=== PATIENT | female | born 1940 | race Caucasian/White ===

== ENCOUNTER 2016-12-21 23:14 | Inpatient (IN) | payer BC, OTHER ==
--- NOTE | 2016-12-21 23:58 | PDOC ---
[id number]: Language Barrier (until rest of family arrived) - History of Present Illness Initial Comments: 12/22/16 00:22 This patient was seen and evaluated upon arrival to the ED and this note was entered at a later point in time. The patient is a 76 year old female, with a significant past medical history of HTN, hyperlipidemia, diabetes, Afib (on Coumadin) and s/p CVA (right parietal stroke; July 2016), who presents to the emergency department via EMS with right sided weakness and slurred speech since approximately 10PM this evening. The patients arrived with the patient to the ED. Both the patient and her primarily speak [place]ian. Approximately half an hour into the history and examination, the rest of the patients family arrive and provide history. They report that the patient went to bed at approximately 10PM and woke up a short time later exhibiting the slurred speech and right sided weakness. EMS was subsequently initiated. Her family state that this is not the patients baseline. At this point, a code segura was called and stroke protocol was initiated. The patients last known time well: 12/21/2016 at 22:00. Allergies: None reported. Past Surgical History: None reported. Social History: Non smoker. Denies alcohol or drug use. PCP: Dr. Dobson <Leilani Aranda - Last Filed: 12/22/16 01:46> - General History Source: Patient, Family, Old Records Exam Limitations: No Limitations <Navin Bauer - Last Filed: 12/28/16 16:04> - General Chief Complaint: Psychiatric Stated Complaint: ANXIETY Time Seen by Provider: 12/21/16 23:24 Past History <Leilani Aranda - Last Filed: 12/22/16 01:46> - Past Medical History Cardiac Disorders: Yes (A FIB) Diabetes: Yes HTN: Yes Hypercholesterolemia: Yes - Psycho/Social/Smoking Cessation Hx Anxiety: No Suicidal Ideation: No Smoking Status: No Smoking History: Never smoked Have you smoked in the past 12 months: No Number of Cigarettes Smoked Daily: 0 Cigars Per Day: 0 Hx Alcohol Use: No Drug/Substance Use Hx: No Substance Use Type: None Hx Substance Use Treatment: No <Navin Bauer - Last Filed: 12/28/16 16:04> - Past Medical History Allergies/Adverse Reactions: Allergies Allergy/AdvReac Type Severity Reaction Status Date / Time No Known Allergies Allergy Verified 12/21/16 23:30 Home Medications: Ambulatory Orders Cyanocobalamin (Vitamin B-12) [B-12] 1,000 mcg PO DAILY 07/18/16 Gabapentin 100 mg PO BID 07/18/16 Losartan Potassium [Cozaar -] 50 mg PO HS #0 tablet 07/25/16 Losartan Potassium [Cozaar -] 100 mg PO DAILY #0 tablet 07/25/16 Metformin Xr [Glucophage Xr -] 500 mg PO DAILY@0700 #0 tab.sr.24h 07/25/16 Metoprolol Succinate [Toprol XL -] 50 mg PO BID #0 tab.sr.24h 07/25/16 Rosuvastatin [Crestor -] 10 mg PO HS #0 tablet 07/25/16 Acetaminophen [Tylenol .Regular Strength -] 650 mg PO Q4H PRN #0 tablet Dabigatran Etexilate Mesylate [Pradaxa -] 75 mg PO BID 30 Days 12/27/16 Gabapentin [Neurontin -] 100 mg PO BID capsule 12/27/16 Metoprolol Succinate [Toprol XL -] 50 mg PO HS #60 tab.sr.24h 12/27/16 Metoprolol Succinate [Toprol XL -] 75 mg PO DAILY tab.sr.24h 12/27/16 Review of Systems - Review of Systems Able to Perform ROS?: Yes Comments:: 12/22/16 00:28 GENERAL/CONSTITUTIONAL: No fever or chills. No weakness. HEAD, EYES, EARS, NOSE AND THROAT: No change in vision. No ear pain or discharge. No sore throat. CARDIOVASCULAR: No chest pain or shortness of breath. RESPIRATORY: No cough, wheezing, or hemoptysis. GASTROINTESTINAL: No nausea, vomiting, diarrhea or constipation. GENITOURINARY: No dysuria, frequency, or change in urination. MUSCULOSKELETAL: No joint or muscle swelling or pain. No neck or back pain. SKIN: No rash. NEUROLOGIC: +Right sided weakness, slurred speech. No headache, vertigo, loss of consciousness. ENDOCRINE: No increased thirst. No abnormal weight change. HEMATOLOGIC/LYMPHATIC: No anemia, easy bleeding, or history of blood clots. ALLERGIC/IMMUNOLOGIC: No hives or skin allergy. <TiogaLeilani morse - Last Filed: 12/22/16 01:46> *Physical Exam - Vital Signs Last Vital Signs Temp Pulse Resp BP Pulse Ox 97.4 F L 71 28 H 199/87 96 12/21/16 23:28 12/21/16 23:28 12/21/16 23:28 12/21/16 23:28 12/21/16 23:28 - Physical Exam Comments: 12/22/16 01:45 GENERAL: Awake, alert, and fully oriented, in no acute distress. HEAD: No signs of trauma. EYES: PERRLA, EOMI, sclera anicteric, conjunctiva clear. ENT: Auricles normal inspection, hearing grossly normal, nares patent, oropharynx clear without exudates. Moist mucosa. NECK: Normal ROM, supple, no lymphadenopathy, JVD, or masses. LUNGS: Breath sounds equal, clear to auscultation bilaterally. No wheezes, and no crackles. HEART: Regular rate and rhythm, normal S1 and S2, no murmurs, rubs or gallops. ABDOMEN: Soft, nontender, normoactive bowel sounds. No guarding, no rebound. No masses. EXTREMITIES: Normal range of motion, no edema. No clubbing or cyanosis. No cords , erythema, or tenderness. SKIN: Warm, dry, normal turgor, no rashes or lesions noted. <Leilani Aranad - Last Filed: 12/22/16 01:46> - Vital Signs Last Vital Signs Temp Pulse Resp BP Pulse Ox 97.4 F L 71 28 H 199/87 96 12/21/16 23:28 12/21/16 23:28 12/21/16 23:28 12/21/16 23:28 12/21/16 23:28 - Physical Exam Comments: 12/22/16 01:50 NEURO: R facial droop. +dysarthria. RUE and RLE drift. Sensation intact throughout. Mild decreased strength upper and lower extremities. AAOx3 with no receptive or expressive aphasia. <Navin Bauer - Last Filed: 12/28/16 16:04> NIH Stroke Scale - Last Known Well Date/Time & Onset Date Last Known Well: 12/21/16 Time Last Known Well: 22:00 - Initial Evaluation Level of consciousness: Alert Ask patient the month and their age: Answers both correctly Ask patient to open & close eyes; make fist and let go: Obeys both correctly Best gaze (horizontal eye movement): Normal Visual field testing: No visual field loss Facial paresis (Show teeth/raise eyebrows/close eyes tight): Minor paralysis ( flattened nasolabial fold, asymmetry on smiling) Motor Function: Left Arm: Normal Motor Function: Right Arm: Drift Motor Function: Left Leg: Normal (extends leg 30 degrees for 5 seconds without drift) Motor Function: Right Leg: Drift Limb Ataxia: No ataxia Sensory(Use pinprick test arms,legs,trunk,face/side to side): Normal Best language (Describe picture, name items, read sentences): No Aphasia Dysarthria (read several words): Mild to moderate slurring of words Extinction and Inattention: No abnormality - Total Score NIH Stroke Scale Score: 4 <Navin Bauer - Last Filed: 12/28/16 16:04> tPA Exclusion Checklist 0-3hr - Time Elapsed Date last known well: 12/21/16 Time last known well: 22:00 Elaspsed time: 6 Day(s) and 18 Hour(s) and 2 Minutes - Thrombolytic Therapy Candidate Is the patient eligible for Thrombolytic Therapy?: No - Exclusion Criteria 0-3hr SBP greater than 185 or DBP greater than 110mmHg despite tx: No Recent IC/spinal surgery,head trauma or stroke w/in last 3mo: No Hx of previous IC hemorrhage, IC neoplasm, AVM or aneurysm: No Active internal bleeding: No Blding diathesis(low plt ct, inc PTT,INR>1.7 or use of NOAC): No Symptoms suggest subarachnoid hemorrhage: No CT demonstrates multilobar infarct(>1/3 cerebral hemiphere): No Arterial puncture at noncompressible site in previous 7 days: No Blood glucose concentration less than 50mg/dL (2.7mmol/L): No - Relative Exclusion Criteria 0-3h Life expectancy <1yr/severe co-morbid illness/FLIGHT OPERATIONS INSPECTOR on admit: No : No Patient/family refused: No Rapid improvement: No Stroke severity too mild: Yes Recent acute MS (w/in previous 3 months): No Seizure at onset with postictal residual neuro impairments: No Major surgery or serious trauma w/in previous 14 days: No Recent GI or hemorrhage (w/in previous 21 days): No - Ineligibility reason(s) Reasons No tPA given: See reason(s) noted above <Navin Bauer - Last Filed: 12/28/16 16:04> Heart Score/ECG Review #1 ECG reviewed & interpreted by me at: 00:25 12/22/16 01:55 NSR 60, T wave flat III, no std/julianne, normal axis, normal intervals, QTC 398 msec <Navin Bauer - Last Filed: 12/28/16 16:04> Critical Care Time/MDM Note Total Critical Care Time: 45 Critical Care Statement: The care of this patient involved high complexity decision making to prevent further life threatening deterioration of the patient 's condition and/or to evalute & treat vital organ system(s) failure or risk of failure. - Medical Decision Making Note: 12/22/16 00:27 EXAM: CT BRAIN W/O CONTRAST Reviewed By: Dr. Mickey Barnett IMPRESSION: No hemorrhage or gross acute infarct. Called [facility] at at 00:15. Connected and case discussed with Dr. Morataya at 00:15. Called patient's PCP, Dr. Dobson, at at 01:03. Connected and case discussed with Dr. Dobson at 01:03. Documentation prepared by Leilani Aranda, acting as medical historian for Navin Bauer MD. <Leilani Aranda - Last Filed: 12/22/16 01:46> - Medical Decision Making Note: 12/21/16 23:56 A portion of this note was documented by scribe services under my direction. I have reviewed the details of the note, within reason, and agree with the documentation with the following case summary and management plan written by me. Patient treated in the ED. Nursing notes are reviewed and incorporated into the medical decision-making. Vital signs reviewed. Peripheral IV access obtained by the nurse, laboratory studies are drawn and sent, reviewed and interpreted by myself. Vital Signs Temp Pulse Resp BP Pulse Ox 97.4 F L 71 28 H 199/87 96 12/21/16 23:28 12/21/16 23:28 12/21/16 23:28 12/21/16 23:28 12/21/16 23:28 76-year-old female with history of hypertension, diabetes, prior right parietal stroke with essentially resolution of neurological deficits, atrial fibrillation on Coumadin presents with slurring of speech. The patient was initially evaluated but not until approximately 30 minutes into the history taking that the rest of the family arrived. Family notes that she is slurring her speech and this is different than her usual state of health. Family is concerned for stroke. Given the circumstances, stroke was activated. Patient was noted to have right facial droop, dysarthria, right upper and lower extremity drift and weakness. Patient was brought immediately to head CT. Labs are ordered immediately for stat INR. We'll consult neurology. Patient is within window for TPA. 12/22/16 01:[address] demonstrates no hemorrhage or acute infarct. CBC, BMP 12/22/16 00:11 12/22/16 00:11 CMP Sodium 139 mmol/L (136-145) 12/22/16 00:11 Potassium 4.1 mmol/L (3.5-5.1) 12/22/16 00:11 Chloride 103 mmol/L (98-107) 12/22/16 00:11 Carbon Dioxide 26 mmol/L (21-32) 12/22/16 00:11 Anion Gap 10 (8-16) 12/22/16 00:11 BUN 32 mg/dL (7-18) H D 12/22/16 00:11 Creatinine 1.1 mg/dL (0.55-1.02) H D 12/22/16 00:11 Creat Clearance w eGFR 48.04 (>60) 12/22/16 00:11 Random Glucose 132 mg/dL (74-106) H D 12/22/16 00:11 Calcium 8.6 mg/dL (8.5-10.1) 12/22/16 00:11 Total Bilirubin 0.2 mg/dL (0.2-1.0) D 12/22/16 00:11 AST 15 U/L (15-37) D 12/22/16 00:11 ALT 16 U/L (12-78) 12/22/16 00:11 Alkaline Phosphatase 94 U/L (45-117) 12/22/16 00:11 Creatine Kinase 44 IU/L (26-192) 12/22/16 00:11 Troponin I < 0.02 ng/ml (0.00-0.05) 12/22/16 00:11 Total Protein 7.3 g/dl (6.4-8.2) 12/22/16 00:11 Albumin 3.4 g/dl (3.4-5.0) 12/22/16 00:11 Triglycerides 181 mg/dL (35-160) H D 12/22/16 00:11 Cholesterol 197 mg/dL (50-200) 12/22/16 00:11 Total LDL Cholesterol 129 mg/dL (5-100) H 12/22/16 00:11 HDL Cholesterol 56 mg/dL (40-60) D 12/22/16 00:11 Pt's INR is 1.23. I had discussed the case at length with Dr. Morataya (neurology ). The patient has a mild NIHSS with 4 and prior history of improvement with her prior stroke. She was determined to be at higher risk for bleeding secondary to TPA. With discussion with Dr. Morataya, decision was made that the risks outweighed the benefits. Patient already took 162 mg asa prior to arrival. Will complete the 162 mg aspirin. I had asked the patient and family regarding patient's use of coumadin. It appears that the patient may be intermittently adherent to her coumadin. She has missed prior doses to the past. Case discussed with Dr. Mile Weber. He accepts the patient to his service. Requests initiation of IV heparin to bridge patient back to coumadin. Case discussed with ICU CREDIT ASSOCIATE Angel. With shared decision making, the patient is deemed now stable for the stroke unit. <Navin Bauer - Last Filed: 12/28/16 16:04> Discharge Disposition <Leilani Aranda - Last Filed: 12/22/16 01:46> - Discharge Dispostion Last Admission D/C Date: 07/25/16 Admit: Yes <Navin Baure - Last Filed: 12/28/16 16:04> - Diagnosis CVA (cerebral vascular accident) Qualifiers: CVA mechanism: unspecified Qualified Code(s): I63.9 - Cerebral infarction, unspecified - Discharge Dispostion Disposition: VNS/HOME HEALTH CARE Condition at time of disposition: Stable - Prescriptions - Referrals
[2016-12-22 00:30] LABS: BASOPHIL 1.1 % (0-2.0); EOSINOPHIL 1.6 % (0-4.5); MCH 28.4 pg (25.7-33.7); MCHC 32.7 g/dl (32.0-36.0); MEAN CELL VOLUME 86.6 fl (80-96); MEAN PLT VOLUME 9.1 fl (7.5-11.1); NEUTROPHILS 51.2 % (42.8-82.8); PLATELET COUNT 191 K/MM3 (134-434); RDW 16.3 % (11.6-15.6); WHITE BLOOD COUNT 6.8 K/mm3 (4.0-10.0)
[2016-12-22 00:44] LABS: INR 1.23 (0.82-1.09); PROTHROMBIN TIME (PATIENT) 13.6 SEC (9.98-11.88)
[2016-12-22 00:53] LABS: ALBUMIN 3.4 g/dl (3.4-5.0); ANION GAP 10 (8-16); BILIRUBIN,TOTAL 0.2 mg/dL (0.2-1.0); CALCIUM 8.6 mg/dL (8.5-10.1); CHOLESTEROL 197 mg/dL (50-200); CO2 26 mmol/L (21-32); CREATININE 1.1 mg/dL (0.55-1.02); GLUCOSE,RANDOM 132 mg/dL (74-106); SGOT/AST 15 U/L (15-37); SGPT/ALT 16 U/L (12-78); TOT PROT 7.3 g/dl (6.4-8.2)
[2016-12-22 00:56] LABS: ALK PHOS 94 U/L (45-117); TROPONIN I < 0.02 ng/ml (0.00-0.05)
[2016-12-22] MEDS ORDERED: ASPIRIN 81 MG CHEWABLE TABLETS PO ONE (01:07)
[2016-12-22 01:10] LABS: LDL CHOLESTEROL (ONLY SJRH) 129 mg/dL (5-100)
[2016-12-22] MEDS ORDERED: HEPARIN INFUSION - 500 ML IVPB ONE (02:11)
[2016-12-22] MEDS ORDERED: ASPIRIN 81 MG CHEWABLE TABLETS ONE (02:11)
[2016-12-22] MEDS: HEPARIN - 25,000 UNIT in SODIUM CHLORIDE 495 ML IV SCH (02:27)
[2016-12-22 10:03] LABS: TROPONIN I < 0.02 ng/ml (0.00-0.05)
[2016-12-22 11:07] LABS: URINE APPEARANCE CLEAR; URINE BILIRUBIN NEGATIVE (NEGATIVE); URINE BLOOD NEGATIVE (NEGATIVE); URINE COLOR STRAW; URINE GLUCOSE (UA) NEGATIVE (NEGATIVE); URINE KETONE NEGATIVE (NEGATIVE); URINE LEUK ESTERASE NEGATIVE (NEGATIVE); URINE NITRITE NEGATIVE (NEGATIVE); URINE PROTEIN NEGATIVE (NEGATIVE); URINE UROBILINOGEN NEGATIVE E.U./dl (0.2-1.0)
--- NOTE | 2016-12-22 12:56 | CONSULT ---
Consult - text type - Consultation Consultation Note: Neurology The patient is a 76 year old female, with a significant past medical history of HTN, hyperlipidemia, diabetes, Afib (on Coumadin) and s/p CVA (right parietal stroke; July 2016), who presented to the emergency department overnight via EMS with right sided weakness and slurred speech since approximately 10PM yesterday evening. The patients arrived with the patient to the ED. Reportedly, the patient went to bed at approximately 10PM and woke up a short time later exhibiting the slurred speech and right sided weakness. EMS was subsequently initiated. I was contacted by Dr. Bauer and patient with slight facial droop, mumbled speech, minimal weakness on drift testing. She is on Coumadin and seemed to have missed doses (INR 1.23) but reports taking the dose yesterday of 5mg. Weight risks and benefits and considering patient previously had full recovery from CVA with minimal NIHSS on presentation on this visit, decision was to not TPA. Overnight, much improved. Family states speech is singificantly better. Minimal facial droop. No drift on UE, slight downward drift of LE. Allowed permissive HTN and had given extra 162mg of ASA overnight. Past History - Past Medical History Cardiac Disorders: Yes (A FIB) Diabetes: Yes HTN: Yes Hypercholesterolemia: Yes - Psycho/Social/Smoking Cessation Hx Anxiety: No Suicidal Ideation: No Smoking Status: No Smoking History: Never smoked Have you smoked in the past 12 months: No Number of Cigarettes Smoked Daily: 0 Cigars Per Day: 0 Hx Alcohol Use: No Drug/Substance Use Hx: No Substance Use Type: None Hx Substance Use Treatment: No - Past Medical History Allergies/Adverse Reactions: Allergies Allergy/AdvReac Type Severity Reaction Status Date / Time No Known Allergies Allergy Verified 12/21/16 23:30 Home Medications: Ambulatory Orders Cyanocobalamin (Vitamin B-12) [B-12] 1,000 mcg PO DAILY 07/18/16 Gabapentin 100 mg PO BID 07/18/16 Aspirin Coated [Ecotrin -] 81 mg PO DAILY #0 tablet.ec 07/25/16 Losartan Potassium [Cozaar -] 50 mg PO HS #0 tablet 07/25/16 Losartan Potassium [Cozaar -] 100 mg PO DAILY #0 tablet 07/25/16 Metformin Xr [Glucophage Xr -] 500 mg PO DAILY@0700 #0 tab.sr.24h 07/25/16 Metoprolol Succinate [Toprol XL -] 50 mg PO BID #0 tab.sr.24h 07/25/16 Rosuvastatin [Crestor -] 10 mg PO HS #0 tablet 07/25/16 Warfarin Na [Coumadin -] 5 mg PO DAILY@1800 #0 tablet 07/25/16 Review of Systems GENERAL/CONSTITUTIONAL: No fever or chills. No weakness. HEAD, EYES, EARS, NOSE AND THROAT: No change in vision. No ear pain or discharge. No sore throat. CARDIOVASCULAR: No chest pain or shortness of breath. RESPIRATORY: No cough, wheezing, or hemoptysis. GASTROINTESTINAL: No nausea, vomiting, diarrhea or constipation. GENITOURINARY: No dysuria, frequency, or change in urination. MUSCULOSKELETAL: No joint or muscle swelling or pain. No neck or back pain. SKIN: No rash. NEUROLOGIC: +Right sided weakness, slurred speech. No headache, vertigo, loss of consciousness. ENDOCRINE: No increased thirst. No abnormal weight change. HEMATOLOGIC/LYMPHATIC: No anemia, easy bleeding, or history of blood clots. ALLERGIC/IMMUNOLOGIC: No hives or skin allergy. *Physical Exam Vital Signs Temperature 97.4 F L 12/21/16 23:28 Pulse Rate 59 L 12/22/16 01:39 Respiratory Rate 16 12/22/16 01:39 Blood Pressure 137/100 12/22/16 02:27 O2 Sat by Pulse Oximetry (%) 99 12/22/16 01:39 GENERAL: Awake, alert, and fully oriented, in no acute distress. HEAD: No signs of trauma. EYES: PERRLA, EOMI, sclera anicteric, conjunctiva clear. ENT: Auricles normal inspection, hearing grossly normal, nares patent, oropharynx clear without exudates. Moist mucosa. NECK: Normal ROM, supple, no lymphadenopathy, JVD, or masses. LUNGS: Breath sounds equal, clear to auscultation bilaterally. No wheezes, and no crackles. HEART: Regular rate and rhythm, normal S1 and S2, no murmurs, rubs or gallops. ABDOMEN: Soft, nontender, normoactive bowel sounds. No guarding, no rebound. No masses. EXTREMITIES: Normal range of motion, no edema. No clubbing or cyanosis. No cords , erythema, or tenderness. SKIN: Warm, dry, normal turgor, no rashes or lesions noted. NEURO: slight R facial droop. otherwise CN intact 5/5 in upper, no drift, slight drift of Left Lower ext but does not hit bed Sensation intact throughout. AAOx3 with no receptive or expressive aphasia. CBCD WBC 6.8 K/mm3 (4.0-10.0) D 12/22/16 00:11 RBC 4.10 M/mm3 (3.60-5.2) 12/22/16 00:11 Hgb 11.6 GM/dL (10.7-15.3) 12/22/16 00:11 Hct 35.5 % (32.4-45.2) 12/22/16 00:11 MCV 86.6 fl (80-96) 12/22/16 00:11 MCHC 32.7 g/dl (32.0-36.0) 12/22/16 00:11 RDW 16.3 % (11.6-15.6) H 12/22/16 00:11 Plt Count 191 K/MM3 (134-434) 12/22/16 00:11 MPV 9.1 fl (7.5-11.1) 12/22/16 00:11 CMP Sodium 139 mmol/L (136-145) 12/22/16 00:11 Potassium 4.1 mmol/L (3.5-5.1) 12/22/16 00:11 Chloride 103 mmol/L (98-107) 12/22/16 00:11 Carbon Dioxide 26 mmol/L (21-32) 12/22/16 00:11 Anion Gap 10 (8-16) 12/22/16 00:11 BUN 32 mg/dL (7-18) H D 12/22/16 00:11 Creatinine 1.1 mg/dL (0.55-1.02) H D 12/22/16 00:11 Creat Clearance w eGFR 48.04 (>60) 12/22/16 00:11 Calcium 8.6 mg/dL (8.5-10.1) 12/22/16 00:11 Total Bilirubin 0.2 mg/dL (0.2-1.0) D 12/22/16 00:11 AST 15 U/L (15-37) D 12/22/16 00:11 ALT 16 U/L (12-78) 12/22/16 00:11 Alkaline Phosphatase 94 U/L (45-117) 12/22/16 00:11 Total Protein 7.3 g/dl (6.4-8.2) 12/22/16 00:11 Albumin 3.4 g/dl (3.4-5.0) 12/22/16 00:11 CT head without acute changes Plan: 76 year old female, with a significant past medical history of HTN, hyperlipidemia, diabetes, Afib (on Coumadin) and s/p CVA (right parietal stroke ; July 2016), who presented to the emergency department overnight via EMS with right sided weakness and slurred speech since approximately 10PM yesterday evening. Risks and benefits and considering patient previously had full recovery from CVA with minimal NIHSS on presentation on this visit, decision was to not TPA. Overnight, much improved. Family states speech is singificantly better. Minimal facial droop. No drift on UE, slight downward drift of LE. Allowed permissive HTN and had given extra 162mg of ASA overnight. Spoke to family in detail at bedside Can allow permissive HTN today up to 180/100, tomorrow up 160/90, outpatient < 140/90 Goal INR 2-3, dose coumadin MRI brain CD, Echo Lipid check, statin Pt/OT as tolerated DVT PPX (patient on AC) On metformin for DM, tight glucose control Telemetry monitoring Cardiology consult
[2016-12-22 13:10] VITALS: BMI 27.3
--- NOTE | 2016-12-22 13:34 | EKG ---
Test Reason : Blood Pressure : / mmHG Vent. Rate : 060 BPM Atrial Rate : 060 BPM P-R Int : 156 ms QRS Dur : 074 ms QT Int : 398 ms P-R-T Axes : 038 027 037 degrees QTc Int : 398 ms NORMAL SINUS RHYTHM NORMAL ECG WHEN COMPARED WITH ECG OF 22-JUL-2016 04:31, SINUS RHYTHM HAS REPLACED ATRIAL FIBRILLATION VENT. RATE HAS DECREASED BY 62 BPM Confirmed by DEYANIRA CURTIS MD ([id number]) on 12/22/2016 1:33:54 PM Referred By: Confirmed By:DEYANIRA CURTIS MD
--- NOTE | 2016-12-22 14:03 | HP ---
Admitting History and Physical - Primary Care Physician PCP: Yordy Dobson - Admission Chief Complaint: Slurred speech and weakness. of RLE History of Present Illness: Around ten PM she was about to go to bed when suddenly she could not talk and felt weakness of the RLE and called 911 and she was brought to ED and found to have slurred speech and weakness of the extremity.Possibility of TIA vs CVA and question of treatment with TPA was considered but did not meet the criteria. As her INR was subtherapeutic and as there was no evidence of any hemorrhagic evidence obn CT, she was started on Heparin. Since coming to ED she claims the weakness in the leg has resolved and her speech has improved. She is being admitted for further management. 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 Cardiovascular: Yes: AFIB, HTN, Hyperlipdemia Pulmonary: No: Asthma, Bronchitis, Cancer, COPD, O2 Dependent, Pneumonia, Previously Intubated, Pulmonary Embolus, Pulmonary Fibrosis, Sleep Apnea, Other Gastrointestinal: No: Ascites, Cancer, Constipation, Crohn's Disease, Diverticulitis, Diverticulosis, Esophageal Varices, Gastritis, GERD, GI Bleed, Hemorrhoids, Hiatal Hernia, Inflamatory Bowel Disease, Irritable Bowel Disease, Pancreatitis, Peptic Ulcer Disease, Ulcerative Colitis, Other ...: No Psych: Yes: Anxiety Musculoskeletal: Yes: Chronic low back pain Endocrine: Yes: Diabetes Mellitus - Smoking History Smoking history: Never smoked Have you smoked in the past 12 months: No Aproximately how many cigarettes per day: 0 - Alcohol/Substance Use Hx Alcohol Use: No Home Medications - Allergies Allergies/Adverse Reactions: Allergies Allergy/AdvReac Type Severity Reaction Status Date / Time No Known Allergies Allergy Verified 12/21/16 23:30 - Home Medications Home Medications: Ambulatory Orders Cyanocobalamin (Vitamin B-12) [B-12] 1,000 mcg PO DAILY 07/18/16 Gabapentin 100 mg PO BID 07/18/16 Aspirin Coated [Ecotrin -] 81 mg PO DAILY #0 tablet.ec 07/25/16 Losartan Potassium [Cozaar -] 50 mg PO HS #0 tablet 07/25/16 Losartan Potassium [Cozaar -] 100 mg PO DAILY #0 tablet 07/25/16 Metformin Xr [Glucophage Xr -] 500 mg PO DAILY@0700 #0 tab.sr.24h 07/25/16 Metoprolol Succinate [Toprol XL -] 50 mg PO BID #0 tab.sr.24h 07/25/16 Rosuvastatin [Crestor -] 10 mg PO HS #0 tablet 07/25/16 Warfarin Na [Coumadin -] 5 mg PO DAILY@1800 #0 tablet 07/25/16 Review of Systems - Review of Systems Constitutional: reports: No Symptoms Eyes: reports: No Symptoms HENT: reports: No Symptoms Neck: reports: No Symptoms Cardiovascular: denies: No Symptoms, Chest Pain, Edema, Palpitations, Shortness of Breath, Other Respiratory: denies: Cough, Exercise Intolerance, Hemoptysis, Orthopnea, PND, Snoring, SOB, SOB on Exertion, Wheezing, Other Gastrointestinal: reports: No Symptoms Genitourinary: reports: No Symptoms Breasts: reports: No Symptoms Reported Musculoskeletal: reports: Back Pain Integumentary: reports: No Symptoms Neurological: reports: Change in Speech, Headache Endocrine: reports: No Symptoms Hematology/Lymphatic: reports: No Symptoms Psychiatric: reports: Anxiety Physical Examination Vital Signs: Vital Signs Temperature 98.8 F 12/22/16 12:54 Pulse Rate 56 L 12/22/16 12:54 Respiratory Rate 18 12/22/16 12:54 Blood Pressure 161/56 12/22/16 12:54 O2 Sat by Pulse Oximetry (%) 100 12/22/16 12:54 Constitutional: Yes: Well Nourished, Calm Eyes: Yes: Conjunctiva Clear, EOM Intact HENT: Yes: WNL Neck: Yes: Supple Cardiovascular: Yes: Regular Rate and Rhythm, S1, S2 Respiratory: Yes: CTA Bilaterally Gastrointestinal: Yes: Normal Bowel Sounds, Soft Renal/: Yes: WNL Breast(s): Yes: WNL Musculoskeletal: Yes: Back Pain Extremities: Yes: WNL Edema: No Peripheral Pulses WNL: Yes Integumentary: Yes: WNL Neurological: Yes: Alert, Oriented, Cran Nerves II-XII Intact, Facial Droop, Other (slight deviation of the mouth to left) ...Motor Strength: WNL Psychiatric: Yes: WNL Imaging - Results Chest X-ray: Report Reviewed, Image Reviewed Cat Scan: Report Reviewed, Image Reviewed EKG: Report Reviewed, Image Reviewed Problem List - Problems (1) Anticoagulation management encounter Assessment/Plan: Will continue IV Heparin the switch to Pradaxa Code(s): Z51.81 - ENCOUNTER FOR THERAPEUTIC DRUG LEVEL MONITORING Z79.01 - GROUP HOME (CURRENT) USE OF 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 (2) Atrial fibrillation Assessment/Plan: VR has been within normal range Code(s): I48.91 - UNSPECIFIED ATRIAL FIBRILLATION (3) Diabetes Assessment/Plan: BGM are being followed Code(s): E11.9 - TYPE 2 DIABETES MELLITUS WITHOUT COMPLICATIONS (4) Hyperlipidemia Code(s): E78.5 - HYPERLIPIDEMIA, UNSPECIFIED Assessment/Plan She is aler and oriented with a very minimal neuro deficit of facial droop.Will continue IV Heparin if there is no evidence of any bleeding and then switch to Pradaxa.
[2016-12-22] MEDS ORDERED: METOPROLOL SUCCINATE 50 MG TAB.SR.24H (FP) ONE (14:17)
[2016-12-22] MEDS: METOPROLOL SUCCINATE 50 MG TAB.SR.24H (FP) PO SCH (14:21)
[2016-12-22] MEDS ORDERED: diazePAM 5 MG TABLET ONE (16:58)
[2016-12-22] MEDS: DEXTROSE 5%-1/3 NS - 500 ML IV SCH (18:38)
[2016-12-23] MEDS: HEPARIN - 25,000 UNIT in SODIUM CHLORIDE 495 ML IV SCH ×2 (05:13→09:29)
[2016-12-23] MEDS: DEXTROSE 5%-1/3 NS - 500 ML IV SCH ×2 (08:00→11:57)
[2016-12-23 08:32] LABS: BASOPHIL 0.8 % (0-2.0); EOSINOPHIL 2.1 % (0-4.5); MCH 28.3 pg (25.7-33.7); MCHC 32.4 g/dl (32.0-36.0); MEAN CELL VOLUME 87.4 fl (80-96); MEAN PLT VOLUME 8.6 fl (7.5-11.1); NEUTROPHILS 47.8 % (42.8-82.8); PLATELET COUNT 169 K/MM3 (134-434); RDW 15.8 % (11.6-15.6); WHITE BLOOD COUNT 5.3 K/mm3 (4.0-10.0)
[2016-12-23] MEDS: METOPROLOL SUCCINATE 50 MG TAB.SR.24H (FP) PO SCH (09:29)
[2016-12-23 09:34] LABS: ALBUMIN 3.1 g/dl (3.4-5.0); ANION GAP 7 (8-16); CALCIUM 8.7 mg/dL (8.5-10.1); CO2 30 mmol/L (21-32); GLUCOSE,RANDOM 111 mg/dL (74-106)
[2016-12-23 09:36] LABS: CREATININE 0.8 mg/dL (0.55-1.02); SGOT/AST 15 U/L (15-37); SGPT/ALT 18 U/L (12-78); TOT PROT 6.8 g/dl (6.4-8.2)
[2016-12-23 09:37] LABS: ALK PHOS 85 U/L (45-117); BILIRUBIN,TOTAL 0.5 mg/dL (0.2-1.0)
--- NOTE | 2016-12-23 10:19 | CON.CARD ---
Consult Consult Specialty:: Cardiology for Dr. Araiza Referred by:: Dr. Dobson Reason for Consultation:: CVA, h/o AFib, subtherapeutic INR - History of Present Illness Chief Complaint: facial droop, slurred speech History of Present Illness: 76 year old woman with a history of HTN, HLD, DMII, non-obs CAD on cardiac cath 2012, AFib on coumadin, previous admission 07/2016 with a CVA in the setting of a subtherapeutic INR now admitted with right sided weakness, slurred speech, and facial droop and noted to have new acute CVA's, INR again subtherapeutic. Pt. seen and examined today in nad. She states that her weakness is improving. she notes that her slurred speech persists. she denies any chest pain, sob, palpitations, lightheadedness, dizziness, syncope, or near syncope. No pnd, orthopnea, or LE edema. 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 Cardio/Vascular: Yes: AFIB, CAD, HTN, Hyperlipdemia ...: No Psych: Yes: Anxiety Musculoskeletal: Yes: Chronic low back pain Endocrine: Yes: Diabetes Mellitus - Alcohol/Substance Use Hx Alcohol Use: No - Smoking History Smoking history: Never smoked Have you smoked in the past 12 months: No Aproximately how many cigarettes per day: 0 - Social History ADL: Independent History of Recent Travel: No Home Medications - Allergies Allergies/Adverse Reactions: Allergies Allergy/AdvReac Type Severity Reaction Status Date / Time No Known Allergies Allergy Verified 12/21/16 23:30 - Home Medications Home Medications: Ambulatory Orders Cyanocobalamin (Vitamin B-12) [B-12] 1,000 mcg PO DAILY 07/18/16 Gabapentin 100 mg PO BID 07/18/16 Aspirin Coated [Ecotrin -] 81 mg PO DAILY #0 tablet.ec 07/25/16 Losartan Potassium [Cozaar -] 50 mg PO HS #0 tablet 07/25/16 Losartan Potassium [Cozaar -] 100 mg PO DAILY #0 tablet 07/25/16 Metformin Xr [Glucophage Xr -] 500 mg PO DAILY@0700 #0 tab.sr.24h 07/25/16 Metoprolol Succinate [Toprol XL -] 50 mg PO BID #0 tab.sr.24h 07/25/16 Rosuvastatin [Crestor -] 10 mg PO HS #0 tablet 07/25/16 Warfarin Na [Coumadin -] 5 mg PO DAILY@1800 #0 tablet 07/25/16 Family Disease History - Family Disease History Family History: Denies Review of Systems - Review of Systems Constitutional: reports: Weakness. denies: No Symptoms, Chills, Diaphoresis, Fever, Lethargy, Loss of Appetite, Malaise, Night Sweats, Unintentional Wgt. Loss, Other Eyes: denies: No Symptoms, Blind Spots, Blurred Vision, Double Vision, Eye Pain , Floaters, Photophobia, Recent Change in Vision, Other HENT: denies: No Symptoms, Difficult Swallowing, Ear Discharge, Ear Pain, Epistaxis, Gingival Bleeding, Hearing Loss, Mouth Swelling, Nasal Congestion, Ocular Prosthesis, Throat Pain, Toothache, Ringing in Ears, Other Neck: denies: No Symptoms, Decreased ROM, Lumps, Pain on Movement, Stiffness, Swollen Glands, Tenderness, Other Cardiovascular: denies: No Symptoms, Chest Pain, Edema, Palpitations, Shortness of Breath, Other Respiratory: denies: No Symptoms, Cough, Exercise Intolerance, Hemoptysis, Orthopnea, PND, Snoring, SOB, SOB on Exertion, Wheezing, Other Gastrointestinal: denies: No Symptoms, Abdominal Pain, Bloating, Constipation, Diarrhea, Dysphagia, Indigestion, Melena, Nausea, Rectal Bleeding, Vomiting, Vomiting Blood, Other Genitourinary: denies: No Symptoms, Burning, Discharge, Dysuria, Flank Pain, Frequency, Hematuria, Incontinence, Lesions, Menses, Pain, Testicular Mass, Testicular Pain, Testicular Swelling, Urgency, Vaginal Bleeding, Other Breasts: denies: No Symptoms Reported, See HPI, Breast Implants, Discharge from Nipple, Lumps, Pain, Skin Changes, Other Musculoskeletal: reports: Muscle Weakness. denies: No Symptoms, Back Pain, Crepitus, Decreased ROM, Extremity Pain, Joint Pain, Joint Swelling, Muscle Pain , Muscle Cramps, Other Integumentary: denies: No Symptoms, Blister, Bruising, Change in Color, Eczema, Erythema, Incision, Lesions, Lump, Pallor, Pruritis, Rash, Wound, Other Neurological: reports: Change in Speech, Weakness, Other (facial droop) Endocrine: denies: No Symptoms, Excessive Sweating, Flushing, Increased Hunger, Increased Thirst, Intolerance to Cold, Intolerance to Heat, Unexplained Weight Gain, Unexplained Weight Loss, Other Hematology/Lymphatic: denies: No Symptoms, Easily Bruised, Excessive Bleeding, Swollen Glands, Other Psychiatric: denies: No Symptoms, Altered Sleep Pattern, Anxiety, Depression, Hallucinations, Panic, Paranoia, Suicidal, Other - Risk Factors Known Risk Factors: Yes: Age, Diabetes Mellitus, Hypercholesterolemia, Hypertension, Prior AK /Emb Stroke Vital Signs: Vital Signs Temperature 97.9 F 12/23/16 06:00 Pulse Rate 63 12/23/16 06:00 Respiratory Rate 20 12/23/16 06:00 Blood Pressure 167/73 12/23/16 06:00 O2 Sat by Pulse Oximetry (%) 99 12/22/16 20:35 Constitutional: Yes: Well Nourished, No Distress, Calm Eyes: Yes: WNL, Conjunctiva Clear, EOM Intact, PERRL HENT: Yes: WNL, Atraumatic, Normocephalic Neck: Yes: WNL, Supple, Trachea Midline Respiratory: Yes: WNL, Regular, CTA Bilaterally. No: Rales, Rhonchi, Wheezes Gastrointestinal: Yes: WNL, Normal Bowel Sounds, Soft. No: Distention, Tenderness Renal/: Yes: WNL Cardiovascular: Yes: Regular Rate and Rhythm. No: Bradycardia, Tachycardia, Pulse Irregular, Gallop, Rub, Varicosities JVD: No Carotid Bruit: No PMI: Non-Displaced Heart Sounds: Yes: S1, S2. No: Split S2, S3, S4, Clicks, Gallop, Rub, Bruit Murmur: No: Systolic Murmur, Diastolic Murmur Musculoskeletal: Yes: Muscle Weakness Extremities: Yes: WNL Edema: No Peripheral Pulses WNL: Yes Peripheral Pulses: 2+ Left Doralis Pedis, 2+ Right Dorsalis Pedis Integumentary: Yes: WNL Neurological: Yes: Alert, Oriented, Dysarthria, Facial Droop, Weakness Psychiatric: Yes: Alert, Oriented - Other Data Labs, Other Data: CBC, BMP 12/23/16 05:45 12/23/16 05:45 INR, PTT INR 1.23 (0.82-1.09) H D 12/22/16 00:11 ekg-nsr 60bpm, no sig st abnl Echo: Report Reviewed Ejection Fraction %: LVEF > or = 40 % Imaging - Results Chest X-ray: Report Reviewed, Image Reviewed EKG: Report Reviewed, Image Reviewed Other: Report Reviewed, Image Reviewed (tele-nsr, no arrhythmias recorded since admission) Problem List - Problems (1) CVA (cerebral vascular accident) Code(s): I63.9 - CEREBRAL INFARCTION, UNSPECIFIED Qualifiers: CVA mechanism: unspecified Qualified Code(s): I63.9 - Cerebral infarction, unspecified (2) Anticoagulation management encounter Code(s): Z51.81 - ENCOUNTER FOR THERAPEUTIC DRUG LEVEL MONITORING Z79.01 - ALF (CURRENT) USE OF 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 (3) Diabetes Code(s): E11.9 - TYPE 2 DIABETES MELLITUS WITHOUT COMPLICATIONS (4) Hyperlipidemia Code(s): E78.5 - HYPERLIPIDEMIA, UNSPECIFIED (5) Hypertension Code(s): I10 - ESSENTIAL (PRIMARY) HYPERTENSION (6) Paroxysmal atrial fibrillation Code(s): I48.0 - PAROXYSMAL ATRIAL FIBRILLATION (7) CAD (coronary artery disease) Code(s): I25.10 - ATHSCL HEART DISEASE OF [place] CORONARY ARTERY W/O ANG PCTRS Assessment/Plan 76 year old woman with a history of HTN, HLD, DMII, non-obs CAD on cardiac cath 2012, AFib on coumadin, previous admission 07/2016 with a CVA in the setting of a subtherapeutic INR now admitted with right sided weakness, slurred speech, and facial droop and noted to have new acute CVA's, INR again subtherapeutic. Acute CVA-with history of Pafib, INR subtherapeutic on admission, prior CVA in setting of subtherapeutic INR -currently receiving heparin gtt with plan to bridge to full oral AC -given that this is the second episode of CVA with subtherapeutic INR would consider the option of changing coumadin to a NOAC -on review of his echo from 07/2016 there does not seem to be significant valvular disease thus this would be characterized as non-valvular afib -there does not seem to be any other contraindications to a NOAC on review of chart -BP trend at goal as per Neuro reccs Afib-paroxysmal, has been in NSR since admission -cont Toprol XL 50mg daily -AC considerations as above, cont heparin gtt for now [id number] -resume home ASA 81mg daily if no contraindication -resume home statin -cont toprol
[2016-12-23] MEDS: DABIGATRAN ETEXILATE MESYLATE 75 MG CAPSULE PO SCH ×2 (15:30→22:03)
[2016-12-23 16:40] LABS: INR 1.34 (0.82-1.09); PROTHROMBIN TIME (PATIENT) 14.8 SEC (9.98-11.88)
[2016-12-23 16:43] LABS: ACTIVATED PTT 29.9 SECONDS (26.9-34.4)
[2016-12-23] MEDS ORDERED: PT OWN MED DRAWER 7, Y5N ONE (21:08)
--- NOTE | 2016-12-24 07:42 | PN ---
Progress Note, Physician History of Present Illness: Progress note for 12/23/16. Patient seen and examined. Denies any weakness of arms or legs ,Had some difficulty with movements of the tongue while chewing but none at present. - Current Medication List Current Medications: Active Medications Dabigatran (Pradaxa -) 75 mg PO BID [facility] Last Admin: 12/23/16 22:03 Dose: 75 mg Dextrose/Sodium Chloride (D5-1/3ns -) 500 mls @ 75 mls/hr IV ASDIR [facility] Last Admin: 12/23/16 11:57 Dose: Not Given Metoprolol Succinate (Toprol Xl -) 50 mg PO DAILY [facility] Last Admin: 12/23/16 09:29 Dose: 50 mg - Objective Vital Signs: Vital Signs Temperature 98.2 F 12/24/16 07:01 Pulse Rate 72 12/24/16 07:01 Respiratory Rate 16 12/24/16 07:01 Blood Pressure 143/87 12/24/16 07:01 O2 Sat by Pulse Oximetry (%) 97 12/23/16 21:00 Constitutional: Yes: Well Nourished, No Distress, Calm Eyes: Yes: WNL, Conjunctiva Clear, EOM Intact HENT: Yes: WNL, Hoarseness Neck: Yes: Supple Cardiovascular: Yes: Regular Rate and Rhythm, S1, S2 Respiratory: Yes: Regular, CTA Bilaterally Gastrointestinal: Yes: Normal Bowel Sounds, Soft Genitourinary: Yes: WNL Musculoskeletal: Yes: Back Pain Extremities: Yes: WNL Edema: No Peripheral Pulses WNL: Yes Integumentary: Yes: WNL Neurological: Yes: Alert, Oriented, Cran Nerves II-XII Intact, Facial Droop ...Motor Strength: WNL Psychiatric: Yes: Alert, Oriented Labs: CBC, BMP 12/23/16 05:45 12/23/16 05:45 INR, PTT INR 1.34 (0.82-1.09) H 12/23/16 15:55 - ....Imaging MRI: Report Reviewed Problem List - Problems (1) Anticoagulation management encounter Assessment/Plan: As the MRI does not show any hemorrhage will start Pradaxa and d/c Heparin Code(s): Z51.81 - ENCOUNTER FOR THERAPEUTIC DRUG LEVEL MONITORING 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 Continue Pradaxa 75 BID
[2016-12-24] MEDS: METOPROLOL SUCCINATE 50 MG TAB.SR.24H (FP) PO SCH ×3 (07:50→21:24)
[2016-12-24] MEDS ORDERED: METOPROLOL TARTRATE 5 MG/5 ML VIAL IVPUSH PRN (08:05)
[2016-12-24] MEDS: DABIGATRAN ETEXILATE MESYLATE 75 MG CAPSULE PO SCH ×2 (09:35→21:24)
[2016-12-24] MEDS ORDERED: ACETAMINOPHEN 325 MG TABLET (FP) ONE (11:07)
--- NOTE | 2016-12-24 11:16 | PN ---
Progress Note, Physician History of Present Illness: 76 year old female, history of atrial fibrillation on coumadin, right parietal stroke, diabetes, hyperlipidemia, htn, presented to ED with right sided weankess in the setting of subtherapeudic INR. MRI brain revealed two small acute left frontal and occipital strokes. Overall symptoms improved of right sided weakness. Continues to experience some occasional word finding difficultly. Denies any new complaints. - Current Medication List Current Medications: Active Medications Dabigatran (Pradaxa -) 75 mg PO BID [facility] Last Admin: 12/24/16 09:35 Dose: 75 mg Dextrose/Sodium Chloride (D5-1/3ns -) 500 mls @ 75 mls/hr IV ASDIR [facility] Last Admin: 12/23/16 11:57 Dose: Not Given Metoprolol Succinate (Toprol Xl -) 50 mg PO BID [facility] Last Admin: 12/24/16 09:35 Dose: Not Given Metoprolol Tartrate (Lopressor Injection -) 5 mg IVPUSH Q2H PRN PRN Reason: HYPERTENSION Last Admin: 12/24/16 10:57 Dose: 5 mg - Objective Vital Signs: Vital Signs Temperature 98.2 F 12/24/16 07:01 Pulse Rate 135 H 12/24/16 10:57 Respiratory Rate 16 12/24/16 07:01 Blood Pressure 140/70 12/24/16 10:57 O2 Sat by Pulse Oximetry (%) 97 12/23/16 21:00 Constitutional: Yes: Well Nourished, No Distress Eyes: Yes: EOM Intact HENT: Yes: Atraumatic, Normocephalic Neurological: Yes: Alert, Oriented, Cran Nerves II-XII Intact ...Motor Strength: WNL (no drift in all ext, NIHSS 0) Labs: CBC, BMP 12/23/16 05:45 12/23/16 05:45 INR, PTT INR 1.34 (0.82-1.09) H 12/23/16 15:55 Assessment/Plan 76 year old female, history of atrial fibrillation on coumadin, right parietal stroke, diabetes, hyperlipidemia, htn, presented to ED with right sided weankess in the setting of subtherapeudic INR. MRI brain revealed two small acute left frontal and occipital strokes. Overall symptoms improved of right sided weakness. Continues to experience some occasional word finding difficultly. Denies any new complaints. NIHSS 0 Patient started on pradaxa Continue cardiology follow up Consider carotid doppler, echocardiogram Physical therapy, Speech and swallow eval
[2016-12-24] MEDS ORDERED: ACETAMINOPHEN 325 MG TABLET (FP) PO PRN (11:25)
--- NOTE | 2016-12-24 11:33 | PN ---
Progress Note, Physician History of Present Illness: seen and examined today in nad. converted to afib with RVR early this am, feels palpitations, headache. - Current Medication List Current Medications: Active Medications Acetaminophen (Tylenol -) 650 mg PO Q4H PRN PRN Reason: FEVER OR PAIN Dabigatran (Pradaxa -) 75 mg PO BID [facility] Last Admin: 12/24/16 09:35 Dose: 75 mg Dextrose/Sodium Chloride (D5-1/3ns -) 500 mls @ 75 mls/hr IV ASDIR [facility] Last Admin: 12/23/16 11:57 Dose: Not Given Metoprolol Succinate (Toprol Xl -) 50 mg PO BID [facility] Last Admin: 12/24/16 09:35 Dose: Not Given Metoprolol Tartrate (Lopressor Injection -) 5 mg IVPUSH Q2H PRN PRN Reason: HYPERTENSION Last Admin: 12/24/16 10:57 Dose: 5 mg - Objective Vital Signs: Vital Signs Temperature 98.2 F 12/24/16 07:01 Pulse Rate 135 H 12/24/16 10:57 Respiratory Rate 16 12/24/16 07:01 Blood Pressure 140/70 12/24/16 10:57 O2 Sat by Pulse Oximetry (%) 97 12/23/16 21:00 Constitutional: Yes: Well Nourished, No Distress, Calm Eyes: Yes: WNL, Conjunctiva Clear, EOM Intact, PERRL HENT: Yes: WNL, Atraumatic, Normocephalic Neck: Yes: WNL, Supple, Trachea Midline Cardiovascular: Yes: Tachycardia, Pulse Irregular, S1, S2. No: Bradycardia, Bruit, JVD, Gallop, Murmur, Rub, S3, S4, Varicosities Respiratory: Yes: WNL, Regular, CTA Bilaterally. No: Rales, Rhonchi, Wheezes Gastrointestinal: Yes: WNL, Normal Bowel Sounds, Soft. No: Distention, Tenderness Musculoskeletal: Yes: WNL Extremities: Yes: WNL Edema: No Peripheral Pulses WNL: Yes Peripheral Pulses: Left Doralis Pedis: 2+, Right Dorsalis Pedis: 2+ Integumentary: Yes: WNL Neurological: Yes: Alert, Oriented, Dysarthria, Facial Droop Psychiatric: Yes: Alert, Oriented Labs: CBC, BMP 12/23/16 05:45 12/23/16 05:45 INR, PTT INR 1.34 (0.82-1.09) H 12/23/16 15:55 - ....Imaging Chest X-ray: Report Reviewed, Image Reviewed EKG: Report Reviewed, Image Reviewed Other: Report Reviewed, Image Reviewed (tele-pafib now with AFib with RVR) Problem List - Problems (1) CVA (cerebral vascular accident) Code(s): I63.9 - CEREBRAL INFARCTION, UNSPECIFIED Qualifiers: CVA mechanism: unspecified Qualified Code(s): I63.9 - Cerebral infarction, unspecified (2) Anticoagulation management encounter Code(s): Z51.81 - ENCOUNTER FOR THERAPEUTIC DRUG LEVEL MONITORING Z79.01 - CARE HOME (CURRENT) USE OF 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 (3) Diabetes Code(s): E11.9 - TYPE 2 DIABETES MELLITUS WITHOUT COMPLICATIONS (4) Hyperlipidemia Code(s): E78.5 - HYPERLIPIDEMIA, UNSPECIFIED (5) Hypertension Code(s): I10 - ESSENTIAL (PRIMARY) HYPERTENSION (6) Paroxysmal atrial fibrillation Code(s): I48.0 - PAROXYSMAL ATRIAL FIBRILLATION (7) CAD (coronary artery disease) Code(s): I25.10 - ATHSCL HEART DISEASE OF [place] CORONARY ARTERY W/O ANG PCTRS Assessment/Plan 76 year old woman with a history of HTN, HLD, DMII, non-obs CAD on cardiac cath 2012, AFib on coumadin, previous admission 07/2016 with a CVA in the setting of a subtherapeutic INR now admitted with right sided weakness, slurred speech, and facial droop and noted to have new acute CVA's, INR again subtherapeutic. Acute CVA-with history of Pafib, INR subtherapeutic on admission, prior CVA in setting of subtherapeutic INR -started on Pradaxa yesterday -BP trend at goal as per Neuro reccs -repeat echo today, echo from 07/2016 showed no sig abnl -check carotid doppler today Afib-paroxysmal, had been in NSR since admission but early this am converted to AFib with RVR -increase Toprol XL to home dose of 50mg bid -start prn IV Lopressor -cont tele monitoring and plan to adjust rate control meds as needed -now on Pradaxa [id number] -resume home ASA 81mg daily if no contraindication -resume home statin -cont toprol
[2016-12-24] MEDS: DEXTROSE 5%-1/3 NS - 500 ML IV SCH (11:37)
--- NOTE | 2016-12-24 16:18 | PN ---
Progress Note, Physician History of Present Illness: Feels better.Denies any weakness of arms or legs. Had a run SVT and was treated with Metoprolol - Current Medication List Current Medications: Active Medications Acetaminophen (Tylenol -) 650 mg PO Q4H PRN PRN Reason: FEVER OR PAIN Last Admin: 12/24/16 11:00 Dose: 650 mg Dabigatran (Pradaxa -) 75 mg PO BID [facility] Last Admin: 12/24/16 09:35 Dose: 75 mg Dextrose/Sodium Chloride (D5-1/3ns -) 500 mls @ 75 mls/hr IV ASDIR [facility] Last Admin: 12/24/16 11:37 Dose: Not Given Metoprolol Succinate (Toprol Xl -) 50 mg PO BID [facility] Last Admin: 12/24/16 09:35 Dose: Not Given Metoprolol Tartrate (Lopressor Injection -) 5 mg IVPUSH Q2H PRN PRN Reason: HYPERTENSION Last Admin: 12/24/16 10:57 Dose: 5 mg - Objective Vital Signs: Vital Signs Temperature 98.4 F 12/24/16 14:31 Pulse Rate 84 12/24/16 14:31 Respiratory Rate 18 12/24/16 14:31 Blood Pressure 119/61 12/24/16 14:31 O2 Sat by Pulse Oximetry (%) 98 12/24/16 09:00 Constitutional: Yes: Well Nourished, No Distress, Calm Eyes: Yes: Conjunctiva Clear, EOM Intact HENT: Yes: Atraumatic Neck: Yes: Supple Cardiovascular: Yes: Pulse Irregular, S1, S2 Respiratory: Yes: CTA Bilaterally Gastrointestinal: Yes: Normal Bowel Sounds, Soft Genitourinary: Yes: WNL Breast(s): Yes: WNL Musculoskeletal: Yes: Back Pain Extremities: Yes: WNL Edema: No Peripheral Pulses WNL: Yes Integumentary: Yes: WNL Neurological: Yes: Alert, Oriented, Cran Nerves II-XII Intact, Facial Droop ...Motor Strength: WNL Psychiatric: Yes: Alert, Oriented Labs: CBC, BMP 12/23/16 05:45 12/23/16 05:45 INR, PTT INR 1.34 (0.82-1.09) H 12/23/16 15:55 - ....Imaging MRI: Report Reviewed, Image Reviewed Problem List - Problems (1) Anticoagulation management encounter Code(s): Z51.81 - ENCOUNTER FOR THERAPEUTIC DRUG LEVEL MONITORING 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 Start PT and discharge home.
[2016-12-24] MEDS: GABAPENTIN 100 MG CAPSULE (FP) PO SCH (21:24)
[2016-12-25] MEDS: LOSARTAN POTASSIUM 50 MG TABLET (FP) PO SCH (09:26)
[2016-12-25] MEDS: DABIGATRAN ETEXILATE MESYLATE 75 MG CAPSULE PO SCH ×2 (09:26→21:35)
[2016-12-25] MEDS: METOPROLOL SUCCINATE 50 MG TAB.SR.24H (FP) PO SCH (09:26)
[2016-12-25] MEDS: GABAPENTIN 100 MG CAPSULE (FP) PO SCH ×2 (09:26→21:34)
[2016-12-25] MEDS ORDERED: METOPROLOL SUCCINATE 25 MG TAB.SR.24H (FP) PO ONE (10:12)
--- NOTE | 2016-12-25 10:51 | PN ---
Progress Note, Physician History of Present Illness: 76 year old female, history of atrial fibrillation on coumadin, right parietal stroke, diabetes, hyperlipidemia, htn, presented to ED with right sided weankess in the setting of subtherapeudic INR. MRI brain revealed two small acute left frontal and occipital strokes. Overall symptoms improved of right sided weakness. No acute events overnight. Denies complaints. Able to comprehend, and repeat - Current Medication List Current Medications: Active Medications Acetaminophen (Tylenol -) 650 mg PO Q4H PRN PRN Reason: FEVER OR PAIN Last Admin: 12/24/16 11:00 Dose: 650 mg Dabigatran (Pradaxa -) 75 mg PO BID [facility] Last Admin: 12/25/16 09:26 Dose: 75 mg Gabapentin (Neurontin -) 100 mg PO BID [facility] Last Admin: 12/25/16 09:26 Dose: 100 mg Losartan Potassium (Cozaar -) 100 mg PO DAILY [facility] Last Admin: 12/25/16 09:26 Dose: 100 mg Metoprolol Succinate (Toprol Xl -) 75 mg PO BID [facility] Metoprolol Tartrate (Lopressor Injection -) 5 mg IVPUSH Q2H PRN PRN Reason: HYPERTENSION Last Admin: 12/24/16 10:57 Dose: 5 mg - Objective Vital Signs: Vital Signs Temperature 98 F 12/25/16 10:00 Pulse Rate 102 H 12/25/16 10:00 Respiratory Rate 18 12/25/16 10:00 Blood Pressure 154/87 12/25/16 10:00 O2 Sat by Pulse Oximetry (%) 98 12/25/16 09:00 Constitutional: Yes: No Distress Eyes: Yes: Conjunctiva Clear, EOM Intact HENT: Yes: Atraumatic, Normocephalic Neurological: Yes: Alert, Oriented, Cran Nerves II-XII Intact ...Motor Strength: WNL Labs: CBC, BMP 12/23/16 05:45 12/23/16 05:45 INR, PTT INR 1.34 (0.82-1.09) H 12/23/16 15:55 Assessment/Plan 76 year old female, history of atrial fibrillation on coumadin, right parietal stroke, diabetes, hyperlipidemia, htn, presented to ED with right sided weankess in the setting of subtherapeudic INR. MRI brain revealed two small acute left frontal and occipital strokes. Overall symptoms improved of right sided weakness. Continues to experience some occasional word finding difficultly. Denies any new complaints. NIHSS 0 MRI brain revealed two small acute left frontal and occipital strokes Echo- LF systolic function normal CD- no significant stenosis Continue pradaxa PT/OT Dispo planning
--- NOTE | 2016-12-25 20:01 | PN ---
Progress Note, Physician History of Present Illness: Feels better.Denies any weakness in the arms or legs. Was able to walk with the walker for about twenty feet then felt some palpitations and raised the Toprol to 75mg BID. - Current Medication List Current Medications: Active Medications Acetaminophen (Tylenol -) 650 mg PO Q4H PRN PRN Reason: FEVER OR PAIN Last Admin: 12/24/16 11:00 Dose: 650 mg Dabigatran (Pradaxa -) 75 mg PO BID [facility] Last Admin: 12/25/16 09:26 Dose: 75 mg Gabapentin (Neurontin -) 100 mg PO BID [facility] Last Admin: 12/25/16 09:26 Dose: 100 mg Losartan Potassium (Cozaar -) 100 mg PO DAILY [facility] Last Admin: 12/25/16 09:26 Dose: 100 mg Metoprolol Succinate (Toprol Xl -) 75 mg PO BID [facility] Metoprolol Tartrate (Lopressor Injection -) 5 mg IVPUSH Q2H PRN PRN Reason: HYPERTENSION Last Admin: 12/24/16 10:57 Dose: 5 mg - Objective Vital Signs: Vital Signs Temperature 98.0 F 12/25/16 17:00 Pulse Rate 63 12/25/16 17:00 Respiratory Rate 18 12/25/16 17:00 Blood Pressure 133/60 12/25/16 17:00 O2 Sat by Pulse Oximetry (%) 98 12/25/16 09:00 Constitutional: Yes: No Distress, Calm Eyes: Yes: WNL, Conjunctiva Clear, EOM Intact HENT: Yes: WNL Neck: Yes: Supple Cardiovascular: Yes: Pulse Irregular, S1, S2 Respiratory: Yes: CTA Bilaterally Gastrointestinal: Yes: Normal Bowel Sounds, Soft Genitourinary: Yes: WNL Musculoskeletal: Yes: Back Pain Extremities: Yes: WNL Edema: No Peripheral Pulses WNL: Yes Integumentary: Yes: WNL Neurological: Yes: Alert, Oriented, Cran Nerves II-XII Intact ...Motor Strength: WNL Psychiatric: Yes: Alert, Oriented Labs: CBC, BMP 12/23/16 05:45 12/23/16 05:45 INR, PTT INR 1.34 (0.82-1.09) H 12/23/16 15:55 - ....Imaging Ultrasound: Report Reviewed, Image Reviewed MRI: Report Reviewed, Image Reviewed Problem List - Problems (1) Anticoagulation management encounter Code(s): Z51.81 - ENCOUNTER FOR THERAPEUTIC DRUG LEVEL MONITORING Z79.01 - [employer] (CURRENT) USE OF 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 (2) Atrial fibrillation Assessment/Plan: VR is controlled with ToprolXL 75 mg BID. Code(s): I48.91 - UNSPECIFIED ATRIAL FIBRILLATION (3) Diabetes Assessment/Plan: BGM are in the therapeutic range Code(s): E11.9 - TYPE 2 DIABETES MELLITUS WITHOUT COMPLICATIONS (4) Hyperlipidemia Code(s): E78.5 - HYPERLIPIDEMIA, UNSPECIFIED (5) CVA (cerebral vascular accident) Assessment/Plan: Clinically stable and improving Code(s): I63.9 - CEREBRAL INFARCTION, UNSPECIFIED Qualifiers: CVA mechanism: unspecified Qualified Code(s): I63.9 - Cerebral infarction, unspecified Assessment/Plan Being monitored because of VR has been high. Started on PT and appears to be doing well and hopefully will be discharged inthe next 48 hours.
[2016-12-25] MEDS ORDERED: PT OWN MED DRAWER 7, Y5N ONE (20:39)
--- NOTE | 2016-12-25 21:25 | EKG ---
Test Reason : Blood Pressure : / mmHG Vent. Rate : 105 BPM Atrial Rate : 312 BPM P-R Int : 000 ms QRS Dur : 072 ms QT Int : 306 ms P-R-T Axes : 000 027 037 degrees QTc Int : 404 ms ATRIAL FIBRILLATION WITH RAPID VENTRICULAR RESPONSE ABNORMAL ECG WHEN COMPARED WITH ECG OF 22-DEC-2016 00:22, ATRIAL FIBRILLATION HAS REPLACED SINUS RHYTHM VENT. RATE HAS INCREASED BY 45 BPM Confirmed by DEYANIRA CURTIS MD ([id number]) on 12/25/2016 9:25:08 PM Referred By: CEZAR SYKES Confirmed By:DEYANIRA CURTIS MD
[2016-12-25] MEDS: METOPROLOL SUCCINATE 25 MG TAB.SR.24H (FP) PO SCH (21:34)
--- NOTE | 2016-12-26 02:00 | PN ---
Progress Note, Physician Chief Complaint: Pt A&Ox3; OOB in chair; no chest pain, palpitations, or dyspnea. History of Present Illness: The patient is a 76 year old female (al Whitman), with a significant past medical history of HTN, hyperlipidemia, diabetes, Afib (on Coumadin) and s/p CVA (right parietal stroke; July 2016), who presents to the emergency department via EMS with right sided weakness and slurred speech since approximately 10PM this evening. The patients arrived with the patient to the ED. Approximately half an hour into the history and examination, the rest of the patients family arrive and provide history. They report that the patient went to bed at approximately 10PM and woke up a short time later exhibiting the slurred speech and right sided weakness. EMS was subsequently initiated. Her family state that this is not the patients baseline. At this point, a code segura was called and stroke protocol was initiated. The patients last known time well: 12/21/2016 at 22:00. Allergies: None reported. Past Surgical History: None reported. Social History: Non smoker. Denies alcohol or drug use. PCP: Dr. Dobson - Current Medication List Current Medications: Active Medications Acetaminophen (Tylenol -) 650 mg PO Q4H PRN PRN Reason: FEVER OR PAIN Last Admin: 12/24/16 11:00 Dose: 650 mg Dabigatran (Pradaxa -) 75 mg PO BID [facility] Last Admin: 12/25/16 21:35 Dose: 75 mg Gabapentin (Neurontin -) 100 mg PO BID [facility] Last Admin: 12/25/16 21:34 Dose: 100 mg Losartan Potassium (Cozaar -) 100 mg PO DAILY [facility] Last Admin: 12/25/16 09:26 Dose: 100 mg Metoprolol Succinate (Toprol Xl -) 75 mg PO BID [facility] Last Admin: 12/25/16 21:34 Dose: 75 mg Metoprolol Tartrate (Lopressor Injection -) 5 mg IVPUSH Q2H PRN PRN Reason: HYPERTENSION Last Admin: 12/24/16 10:57 Dose: 5 mg - Objective Vital Signs: Vital Signs Temperature 98.5 F 12/25/16 22:00 Pulse Rate 64 12/25/16 22:00 Respiratory Rate 18 12/25/16 22:00 Blood Pressure 130/57 12/25/16 22:00 O2 Sat by Pulse Oximetry (%) 97 12/25/16 21:00 Constitutional: Yes: Anxious Eyes: Yes: WNL HENT: Yes: WNL Neck: Yes: WNL Cardiovascular: Yes: Tachycardia, Pulse Irregular Respiratory: Yes: Regular Gastrointestinal: Yes: Soft ...Rectal Exam: Yes: Deferred Genitourinary: No: Anuria Breast(s): Yes: WNL Musculoskeletal: Yes: Muscle Weakness Extremities: Yes: WNL Edema: No Peripheral Pulses WNL: Yes Integumentary: Yes: WNL Neurological: Yes: Alert, Oriented, Weakness Psychiatric: Yes: Alert, Oriented Labs: CBC, BMP 12/23/16 05:45 12/23/16 05:45 INR, PTT INR 1.34 (0.82-1.09) H 12/23/16 15:55 - ....Imaging Other: Image Reviewed (telemetry: AF with RVR) Problem List - Problems (1) CAD (coronary artery disease) Code(s): I25.10 - ATHSCL HEART DISEASE OF [place] CORONARY ARTERY W/O ANG PCTRS (2) CVA (cerebral vascular accident) Code(s): I63.9 - CEREBRAL INFARCTION, UNSPECIFIED Qualifiers: CVA mechanism: unspecified Qualified Code(s): I63.9 - Cerebral infarction, unspecified (3) Atrial fibrillation Assessment/Plan: Increase metoprolol ER to 75 mg bid; f/u HR and BP. F/u EKG today. On NOAC (Pradaxa). Code(s): I48.91 - UNSPECIFIED ATRIAL FIBRILLATION (4) Diabetes Code(s): E11.9 - TYPE 2 DIABETES MELLITUS WITHOUT COMPLICATIONS (5) Dizziness Code(s): R42 - DIZZINESS AND GIDDINESS (6) Hyperlipidemia Code(s): E78.5 - HYPERLIPIDEMIA, UNSPECIFIED (7) Hypertension Code(s): I10 - ESSENTIAL (PRIMARY) HYPERTENSION
[2016-12-26] MEDS ORDERED: PT OWN MED DRAWER 7, Y5N ONE (09:35)
[2016-12-26] MEDS: GABAPENTIN 100 MG CAPSULE (FP) PO SCH ×2 (09:36→21:22)
[2016-12-26] MEDS: DABIGATRAN ETEXILATE MESYLATE 75 MG CAPSULE PO SCH ×2 (09:36→21:24)
[2016-12-26] MEDS: METOPROLOL SUCCINATE 25 MG TAB.SR.24H (FP) PO SCH (09:36)
[2016-12-26] MEDS: LOSARTAN POTASSIUM 50 MG TABLET (FP) PO SCH (09:36)
--- NOTE | 2016-12-26 14:55 | PN ---
Progress Note, Physician Chief Complaint: Pt A&Ox3; OOB in chair; no chest pain, palpitations, or dyspnea. History of Present Illness: The patient is a 76 year old female (al Whitman), with a significant past medical history of HTN, hyperlipidemia, diabetes, Afib (on Coumadin) and s/p CVA (right parietal stroke; July 2016), who presents to the emergency department via EMS with right sided weakness and slurred speech since approximately 10PM this evening. The patients arrived with the patient to the ED. Approximately half an hour into the history and examination, the rest of the patients family arrive and provide history. They report that the patient went to bed at approximately 10PM and woke up a short time later exhibiting the slurred speech and right sided weakness. EMS was subsequently initiated. Her family state that this is not the patients baseline. At this point, a code segura was called and stroke protocol was initiated. The patients last known time well: 12/21/2016 at 22:00. Allergies: None reported. Past Surgical History: None reported. Social History: Non smoker. Denies alcohol or drug use. PCP: Dr. Dobson - Current Medication List Current Medications: Active Medications Acetaminophen (Tylenol -) 650 mg PO Q4H PRN PRN Reason: FEVER OR PAIN Last Admin: 12/24/16 11:00 Dose: 650 mg Dabigatran (Pradaxa -) 75 mg PO BID [facility] Last Admin: 12/26/16 09:36 Dose: 75 mg Gabapentin (Neurontin -) 100 mg PO BID [facility] Last Admin: 12/26/16 09:36 Dose: 100 mg Losartan Potassium (Cozaar -) 100 mg PO DAILY [facility] Last Admin: 12/26/16 09:36 Dose: 100 mg Metoprolol Succinate (Toprol Xl -) 75 mg PO BID [facility] Last Admin: 12/26/16 09:36 Dose: 75 mg Metoprolol Tartrate (Lopressor Injection -) 5 mg IVPUSH Q2H PRN PRN Reason: HYPERTENSION Last Admin: 12/24/16 10:57 Dose: 5 mg - Objective Vital Signs: Vital Signs Temperature 97.5 F L 12/26/16 14:20 Pulse Rate 56 L 12/26/16 14:20 Respiratory Rate 18 12/26/16 14:20 Blood Pressure 130/69 12/26/16 14:20 O2 Sat by Pulse Oximetry (%) 94 L 12/26/16 10:00 Constitutional: Yes: Calm Eyes: Yes: WNL HENT: Yes: WNL Neck: Yes: WNL Cardiovascular: Yes: Regular Rate and Rhythm Respiratory: Yes: Regular Gastrointestinal: Yes: Soft ...Rectal Exam: Yes: Deferred Genitourinary: No: Anuria Breast(s): Yes: WNL Musculoskeletal: Yes: Muscle Weakness Edema: No Peripheral Pulses WNL: No Peripheral Pulses: Left Doralis Pedis: 1+, Right Dorsalis Pedis: 1+ Neurological: Yes: Alert, Oriented, Facial Droop Psychiatric: Yes: Alert, Oriented Labs: CBC, BMP 12/23/16 05:45 12/23/16 05:45 INR, PTT INR 1.34 (0.82-1.09) H 12/23/16 15:55 Problem List - Problems (1) CAD (coronary artery disease) Code(s): I25.10 - ATHSCL HEART DISEASE OF [place] CORONARY ARTERY W/O ANG PCTRS (2) CVA (cerebral vascular accident) Assessment/Plan: f/u brain MRI f/u with neurology. Code(s): I63.9 - CEREBRAL INFARCTION, UNSPECIFIED Qualifiers: Qualified Code(s): I63.9 - Cerebral infarction, unspecified (3) Atrial fibrillation Assessment/Plan: Increased metoprolol ER to 75 mg bid; f/u HR and BP. F/u EKG today. On NOAC (Pradaxa). Code(s): I48.91 - UNSPECIFIED ATRIAL FIBRILLATION (4) Diabetes Code(s): E11.9 - TYPE 2 DIABETES MELLITUS WITHOUT COMPLICATIONS (5) Dizziness Code(s): R42 - DIZZINESS AND GIDDINESS (6) Hyperlipidemia Code(s): E78.5 - HYPERLIPIDEMIA, UNSPECIFIED (7) Hypertension Code(s): I10 - ESSENTIAL (PRIMARY) HYPERTENSION
[2016-12-26] MEDS ORDERED: METOPROLOL SUCCINATE 50 MG TAB.SR.24H (FP) PO SCH (22:00)
--- NOTE | 2016-12-26 23:50 | PN ---
Progress Note, Physician History of Present Illness: Denies any weakness of arms or legs. Denies any chest pain, denies any palpitations. Was able to walk with walker for about twenty feet - Current Medication List Current Medications: Active Medications Acetaminophen (Tylenol -) 650 mg PO Q4H PRN PRN Reason: FEVER OR PAIN Last Admin: 12/24/16 11:00 Dose: 650 mg Dabigatran (Pradaxa -) 75 mg PO BID [facility] Last Admin: 12/26/16 21:24 Dose: 75 mg Gabapentin (Neurontin -) 100 mg PO BID [facility] Last Admin: 12/26/16 21:22 Dose: 100 mg Losartan Potassium (Cozaar -) 100 mg PO DAILY [facility] Last Admin: 12/26/16 09:36 Dose: 100 mg Metoprolol Succinate (Toprol Xl -) 75 mg PO DAILY [facility] Metoprolol Succinate (Toprol Xl -) 50 mg PO HS [facility] Last Admin: 12/26/16 21:54 Dose: 50 mg Metoprolol Tartrate (Lopressor Injection -) 5 mg IVPUSH Q2H PRN PRN Reason: HYPERTENSION Last Admin: 12/24/16 10:57 Dose: 5 mg - Objective Vital Signs: Vital Signs Temperature 98.0 F 12/26/16 17:00 Pulse Rate 54 L 12/26/16 17:00 Respiratory Rate 18 12/26/16 17:00 Blood Pressure 140/60 12/26/16 17:00 O2 Sat by Pulse Oximetry (%) 94 L 12/26/16 10:00 Constitutional: Yes: Well Nourished, No Distress, Calm Eyes: Yes: WNL HENT: Yes: WNL Neck: Yes: WNL, Supple Cardiovascular: Yes: Pulse Irregular, S1, S2 Respiratory: Yes: Regular, CTA Bilaterally Gastrointestinal: Yes: Normal Bowel Sounds, Soft Genitourinary: Yes: WNL Breast(s): Yes: WNL Musculoskeletal: Yes: Back Pain Extremities: Yes: WNL Edema: No Peripheral Pulses WNL: Yes Integumentary: Yes: WNL Neurological: Yes: Alert, Oriented, Cran Nerves II-XII Intact, Facial Droop ...Motor Strength: WNL Psychiatric: Yes: Alert, Oriented Labs: CBC, BMP 12/23/16 05:45 12/23/16 05:45 INR, PTT INR 1.34 (0.82-1.09) H 12/23/16 15:55 Problem List - Problems (1) Anticoagulation management encounter Code(s): Z51.81 - ENCOUNTER FOR THERAPEUTIC DRUG LEVEL MONITORING Z79.01 - [facility] (CURRENT) USE OF 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 (2) Atrial fibrillation Assessment/Plan: VR well controlled, no signs of CHF Code(s): I48.91 - UNSPECIFIED ATRIAL FIBRILLATION (3) Diabetes Assessment/Plan: Diabetes well controlled with Metformin Code(s): E11.9 - TYPE 2 DIABETES MELLITUS WITHOUT COMPLICATIONS (4) Hyperlipidemia Code(s): E78.5 - HYPERLIPIDEMIA, UNSPECIFIED (5) CVA (cerebral vascular accident) Assessment/Plan: Acute CVA without any progression from initial presentation Code(s): I63.9 - CEREBRAL INFARCTION, UNSPECIFIED Qualifiers: CVA mechanism: unspecified Qualified Code(s): I63.9 - Cerebral infarction, unspecified Assessment/Plan Has been started on Pradaxa as patient was inconsistent in taking warfarin on a regular basis.Will be discharged and followed as outpatient
[2016-12-27 05:45] VITALS: TEMP 97.3
[2016-12-27] MEDS: GABAPENTIN 100 MG CAPSULE (FP) PO SCH (09:30)
[2016-12-27] MEDS: LOSARTAN POTASSIUM 50 MG TABLET (FP) PO SCH (09:31)
[2016-12-27] MEDS: DABIGATRAN ETEXILATE MESYLATE 75 MG CAPSULE PO SCH (09:31)
[2016-12-27] MEDS ORDERED: METOPROLOL SUCCINATE 25 MG TAB.SR.24H (FP) PO SCH (10:00)
[2016-12-27 11:36] VITALS: BP 145/65; PULSE 58
--- NOTE | 2017-03-21 12:34 | DS ---
Physical Examination Vital Signs: Vital Signs Temperature 97.3 F L 12/27/16 05:44 Pulse Rate 58 L 12/27/16 10:00 Respiratory Rate 18 12/27/16 10:00 Blood Pressure 145/65 12/27/16 10:00 O2 Sat by Pulse Oximetry (%) 98 12/27/16 10:00 Findings/Remarks: She feels much better, her speech has improved and denies any weakness in arms or legs. She feels alight difficulty in walking but has imoroved daily Constitutional: Yes: Well Nourished, No Distress, Calm Eyes: Yes: WNL, Conjunctiva Clear, EOM Intact HENT: Yes: WNL Neck: Yes: Supple Cardiovascular: Yes: Pulse Irregular, S1, S2 Respiratory: Yes: Regular, CTA Bilaterally Gastrointestinal: Yes: Normal Bowel Sounds, Soft Renal/: Yes: WNL Musculoskeletal: Yes: Back Pain Extremities: Yes: WNL Edema: No Peripheral Pulses WNL: Yes Integumentary: Yes: WNL Neurological: Yes: Alert, Oriented, Cran Nerves II-XII Intact ...Motor Strength: WNL Psychiatric: Yes: Alert, Oriented Labs: CBC, BMP 12/23/16 05:45 12/23/16 05:45 Discharge Summary Reason For Visit: CVA Procedures: Principal: CT scan of brain,. MRI of brain Hospital Course: 76 y/o white female who developed aphasia and right sided extremity weakness and was brought to ED.She is a known case of AFIB and her INR was subtherapeutic. MRI showed an acut CVA and because of the possibility of embolic CVA she was treated with IV Heparin. She gradually improved power in her extremities and also her speech improved in 48 hours. She was switched to Pradaxa. She had episodes of palpitations and the dose of Toprol XL was increased. She was started on PT and gradually she was able to ambulate with walker. Her diabetes was controlled with Metformin. She was discharged home with VNS and will be followe in my office. Condition: Improved - Instructions Referrals: Nyasia Shankar MD [Staff Physician] - Yordy Araiza MD [Staff Physician] - Yordy Dobson MD [Primary Care Provider] - Disposition: HOME - Home Medications Comprehensive Discharge Medication List: Ambulatory Orders Cyanocobalamin (Vitamin B-12) [B-12] 1,000 mcg PO DAILY 07/18/16 Gabapentin 100 mg PO BID 07/18/16 Losartan Potassium [Cozaar -] 50 mg PO HS #0 tablet 07/25/16 Losartan Potassium [Cozaar -] 100 mg PO DAILY #0 tablet 07/25/16 Metformin Xr [Glucophage Xr -] 500 mg PO DAILY@0700 #0 tab.sr.24h 07/25/16 Metoprolol Succinate [Toprol XL -] 50 mg PO BID #0 tab.sr.24h 07/25/16 Rosuvastatin [Crestor -] 10 mg PO HS #0 tablet 07/25/16 Acetaminophen [Tylenol .Regular Strength -] 650 mg PO Q4H PRN #0 tablet Dabigatran Etexilate Mesylate [Pradaxa -] 75 mg PO BID 30 Days 12/27/16 Gabapentin [Neurontin -] 100 mg PO BID capsule 12/27/16 Metoprolol Succinate [Toprol XL -] 50 mg PO HS #60 tab.sr.24h 12/27/16 Metoprolol Succinate [Toprol XL -] 75 mg PO DAILY tab.sr.24h 12/27/16
== END 2016-12-27 11:26 | disposition home or self-care (01) | DRG 65 ==
LOC: JER 23:14 → JERBED 12-22 01:55 → UNDOADMIN 12-22 02:05 → JERBED 12-22 02:05 → J4W 12-22 18:16
PROVIDERS: ADMIT Internal Medicine Hematology & Oncology; ATTEND Internal Medicine Hematology & Oncology
DX: I63.9 Cerebral infarction, unspecified (principal); I47.1 Supraventricular tachycardia; I69.351 Hemiplegia and hemiparesis following cerebral infarction affecting right dominant side; R29.704 NIHSS score 4; I10 Essential (primary) hypertension; E78.5 Hyperlipidemia, unspecified; I48.0 Paroxysmal atrial fibrillation; E11.9 Type 2 diabetes mellitus without complications; I25.10 Atherosclerotic heart disease of native coronary artery without angina pectoris; F41.8 Other specified anxiety disorders; M54.5 Low back pain; Z95.5 Presence of coronary angioplasty implant and graft; Z79.01 Long term (current) use of anticoagulants
CPT/HCPCS: 36415; 70450-TC; 70551-TC; 71010-TC; 80053; 81003; 82465; 82550; 83036; 83718; 83721; 84478; 84484; 85025; 85610; 85730; 86850; 86900; 86901; 93005; 93010; 93306-TC; 93880-TC; 97116-GP; 97162-PG; 99285-25; J1644

== ENCOUNTER 2017-06-03 15:52 | Inpatient (IN) | payer BC, OTHER ==
[2017-06-03] MEDS ORDERED: SODIUM CHLORIDE 1,000 ML IV SCH (16:15)
[2017-06-03 16:16] LABS: BASOPHIL 0.3 % (0-2.0); MCH 29.2 pg (25.7-33.7); MCHC 32.5 g/dl (32.0-36.0); MEAN CELL VOLUME 89.9 fl (80-96); MEAN PLT VOLUME 8.5 fl (7.5-11.1); NEUTROPHILS 63.9 % (42.8-82.8); PLATELET COUNT 266 K/MM3 (134-434); RDW 14.5 % (11.6-15.6); WHITE BLOOD COUNT 8.7 K/mm3 (4.0-10.0)
--- NOTE | 2017-06-03 16:18 | PDOC ---
Attending Attestation - Medical Decision Making 06/03/17 18:[address] Dobson. responded to the page. Patient's case was discussed. <Abbie Rivera - Last Filed: 06/03/17 18:26> - Resident Resident Name: Bassam Ovalle - ED Attending Attestation I have performed the following: I have examined & evaluated the patient, The case was reviewed & discussed with the resident, I agree w/resident's findings & plan, Exceptions are as noted - HPI HPI: 06/03/17 16:18 76y F hx of htn, hl, pafib on pradaxa, dm, cva (x2), presenting with concernfor cVA. The famiy states pt had an episode of confusion when she thogh she heard her outside, but didnt see her and became confused. Pt does note that she had an episode of L arm sensory changes and weakness, around lunch time. On arrival pt noted to be hypertensive. with very minimal weakness of LUE. code segura was activated at arrival. 06/03/17 19:36 CT neg for acute process labs unremarkable no ASA as pt is on pradaxa the pts exam noted for very mild weakness of LUE (only visible in terms of shakiness when doing finger to nose wit hLUE) no drift otherwise - family notes she has very mild weakness of LUE residually from prior stroke. Family notes her weakness seemed worse at home and improved upon arrival. NIHSS = 1 not TPA candidate due to mildness of sypmtoms/rapid improvement. case was dw dr. angulo and dr. Harp will admit pt for possible cva/TIA no asa due to being on pradaxa still awaiting UA from pt. - Physicial Exam PE: GENERAL: The patient is awake, alert, and fully oriented, Nontoxic - in no acute distress. HEAD: Normocephalic, atraumatic. EYES: extraocular movements intact, sclera anicteric, conjunctiva clear. ENT: Normal voice, Moist mucous membranes. NECK: Normal range of motion, supple LUNGS: Breath sounds equal, clear to auscultation bilaterally. No wheezes, no rhonchi, no rales. HEART: Regular rate and rhythm, normal S1 and S2 without murmur, rub or gallop. ABDOMEN: Soft, nontender, normoactive bowel sounds. No guarding, no rebound. . No CVA tenderness EXTREMITIES: Normal range of motion, PSYCH: Normal mood, normal affect. SKIN: Warm, Dry, normal turgor, NEURO: Mental status: The patient is oriented x3. Cranial nerves: Cranial nerves II through XII are intact Motor: The upper extremities are 5 over 5 in major muscle groups. The lower extremities are 5 over 5 Negative pronator drift Sensation: Sensation is intact to light touch throughout. romberg negative Cerebellar: [id number] is normal in both upper extremities (slightly tremulous on LUE, however i think this is secondary to very mild weakness of LUE ) rapid alternating movements are normal. Gait: dferred - Critical Care Time Total Critical Care Time: 40 Critical Care Statement: The care of this patient involved high complexity decision making to prevent further life threatening deterioration of the patient 's condition and/or to evaluate & treat vital organ system(s) failure or risk of failure. - Medical Decision Making 06/04/17 07:47 see above <Александр Lai - Last Filed: 06/15/17 02:04> Heart Score/ECG Review - ECG Impressions Comment:: 06/03/17 18:30 Twelve-lead EKG was performed and reviewed by me. There is normal sinus rhythm with a normal rate. Rate of 68 The axis is normal. The intervals are normal. There is normal R wave progression There are no ST or T wave abnormalities. Impression: Normal twelve-lead EKG <Александр Lai - Last Filed: 06/15/17 02:04> NIH Stroke Scale - Last Known Well Date/Time & Onset Date Last Known Well: 06/03/17 Time Last Known Well: 11:00 - Initial Evaluation Level of consciousness: Alert Ask patient the month and their age: Answers both correctly Ask patient to open & close eyes; make fist and let go: Obeys both correctly Best gaze (horizontal eye movement): Normal Visual field testing: No visual field loss Facial paresis (Show teeth/raise eyebrows/close eyes tight): Minor paralysis ( flattened nasolabial fold, asymmetry on smiling) Motor Function: Left Arm: Normal Motor Function: Right Arm: Normal (extends arm 90 (or 45) degrees for 10 seconds without drift Motor Function: Left Leg: Normal (extends leg 30 degrees for 5 seconds without drift) Motor Function: Right Leg: Normal (extends leg 30 degrees for 5 seconds without drift) Limb Ataxia: No ataxia Sensory(Use pinprick test arms,legs,trunk,face/side to side): Normal Best language (Describe picture, name items, read sentences): No Aphasia Dysarthria (read several words): Normal articulation Extinction and Inattention: No abnormality - Total Score NIH Stroke Scale Score: 1 <Александр Lai - Last Filed: 06/15/17 02:04> tPA Exclusion Checklist 0-3hr - Time Elapsed Date last known well: 06/03/17 Time last known well: 11:00 (calculated elapsed time is incorrect) Elaspsed time: 11 Day(s) and 15 Hour(s) and 1 Minutes - Thrombolytic Therapy Candidate Is the patient eligible for Thrombolytic Therapy?: No - Relative Exclusion Criteria 0-3h Rapid improvement: Yes Stroke severity too mild: Yes - Ineligibility reason(s) Reasons No tPA given: See reason(s) noted above <Александр Lai - Last Filed: 06/15/17 02:04>
[2017-06-03 16:36] LABS: INR 1.08 (0.82-1.09); PROTHROMBIN TIME (PATIENT) 11.9 SEC (9.98-11.88)
--- NOTE | 2017-06-03 16:39 | PDOC ---
History of Present Illness - General Stated Complaint: BLOOD PRESSURE PROBLEM Time Seen by Provider: 06/03/17 16:03 History Source: Patient, Family - History of Present Illness Initial Comments: 06/03/17 16:37 The patient is a 76F with a PMH of HTN, HLD, DM, a-fib on coumadin, s/p 2 CVA's who presents to the ED with family at bedside. The son was providing some of the history. He states that the patient called him around 3:18 and stated that she was confused and her speech and voice were different. The son states that the patient sounded frantic. He also states that she has calmed down since he has spoken to her while being in the ED. The patient has a previous history of 2 CVA's with unknown residual deficits. The patient states that this morning she woke up with tingling in her L hand. The patient states that later in the day she head a loud bang and thought there was something outside, then looked outside and didn't see anything. There is a language barrier present. NIH Stroke Scale - Last Known Well Date/Time & Onset Date Last Known Well: 06/03/17 Time Last Known Well: 03:00 - Initial Evaluation Level of consciousness: Alert Ask patient the month and their age: Answers both correctly Ask patient to open & close eyes; make fist and let go: Obeys both correctly Best gaze (horizontal eye movement): Normal Visual field testing: No visual field loss Facial paresis (Show teeth/raise eyebrows/close eyes tight): Minor paralysis ( flattened nasolabial fold, asymmetry on smiling) Motor Function: Left Arm: Normal Motor Function: Right Arm: Normal (extends arm 90 (or 45) degrees for 10 seconds without drift Motor Function: Left Leg: Normal (extends leg 30 degrees for 5 seconds without drift) Motor Function: Right Leg: Normal (extends leg 30 degrees for 5 seconds without drift) Limb Ataxia: No ataxia Sensory(Use pinprick test arms,legs,trunk,face/side to side): Normal Best language (Describe picture, name items, read sentences): No Aphasia Dysarthria (read several words): Normal articulation Extinction and Inattention: No abnormality - Total Score NIH Stroke Scale Score: 1 Past History - Past Medical History Allergies/Adverse Reactions: Allergies Allergy/AdvReac Type Severity Reaction Status Date / Time No Known Allergies Allergy Verified 06/03/17 16:13 Home Medications: Ambulatory Orders Acetaminophen [Tylenol .Regular Strength -] 650 mg PO Q6H PRN #0 tablet Alprazolam [Xanax] 0.25 mg PO HS PRN #10 tablet MDD 1 06/10/17 Aspirin [ASA -] 81 mg PO DAILY tab.chew 06/10/17 Dabigatran Etexilate Mesylate [Pradaxa -] 75 mg PO BID #60 tab 06/10/17 Metformin Xr [Glucophage Xr -] 500 mg PO DAILY@0700 #30 tab.sr MDD 1 06/10/17 Metoprolol Tartrate [Lopressor -] 100 mg PO BID tablet 06/10/17 Rosuvastatin [Crestor -] 20 mg PO HS tablet 06/10/17 Metoprolol Tartrate [Lopressor -] 100 mg PO BID 90 Days 06/13/17 Valsartan [Diovan] 160 mg PO DAILY 90 Days 06/13/17 Cardiac Disorders: Yes (A FIB) CVA: Yes (JUL 2016, LEFT SIDED WEAKNESS.) Diabetes: Yes HTN: Yes Hypercholesterolemia: Yes - Psycho/Social/Smoking Cessation Hx Anxiety: No Suicidal Ideation: No Smoking Status: No Smoking History: Never smoked Have you smoked in the past 12 months: No Number of Cigarettes Smoked Daily: 0 Cigars Per Day: 0 Information on smoking cessation initiated: No Hx Alcohol Use: No Drug/Substance Use Hx: No Substance Use Type: None Hx Substance Use Treatment: No Review of Systems - Review of Systems Able to Perform ROS?: Yes (Limited) Is the patient limited [place] Citizen proficient: Yes Neurological: Yes: Headache, Numbness, Tingling, Weakness *Physical Exam - Vital Signs Last Vital Signs Temp Pulse Resp BP Pulse Ox 98.5 F 69 18 185/82 94 L 06/03/17 15:52 06/03/17 15:52 06/03/17 15:52 06/03/17 15:52 06/03/17 15:52 - Physical Exam General Appearance: Yes: Nourished, Mild Distress HEENT: negative: Tonsillar Exudate, Tonsillar Erythema Respiratory/Chest: positive: Lungs Clear, Normal Breath Sounds. negative: Chest Tender, Respiratory Distress Cardiovascular: positive: Regular Rhythm, Regular Rate, S1, S2 Gastrointestinal/Abdominal: positive: Flat, Soft. negative: Tender Integumentary: positive: Normal Color, Dry, Warm Neurologic: positive: Fully Oriented, Other (CNXI strength not bilateral.). negative: Normal Mood/Affect, Numbness ED Treatment Course - LABORATORY CBC & Chemistry Diagram: 06/08/17 06:20 06/09/17 06:30 - ADDITIONAL ORDERS Additional order review: 06/03/17 16:10 RBC 3.75 MCV 89.9 MCHC 32.5 RDW 14.5 MPV 8.5 Neutrophils % 63.9 D Lymphocytes % 26.7 D Monocytes % 8.1 Eosinophils % 1.0 Basophils % 0.3 - RADIOLOGY Radiology Studies Ordered: Category Date Time Status HEAD CT (STROKE) [CT] Stat CT Scan 06/03/17 16:04 Completed Medical Decision Making - Medical Decision Making 06/03/17 16:58 The patient is a 76F who presented with a questionable CVA. I evaluated the patient and called Dr. Lai to bedside. A dwayne segura was called to rapidly evaluate the patient with CT. CT read as no acute changes since previous MRI. 06/03/17 18:[address] Echeverria, he wants to admit to his service and consult Dr. Morataya for neurology. I will put these orders in. *DC/Admit/Observation/Transfer Diagnosis at time of Disposition: CVA (cerebral vascular accident) Qualifiers: CVA mechanism: unspecified Qualified Code(s): I63.9 - Cerebral infarction, unspecified - Discharge Dispostion Disposition: VNS/HOME HEALTH CARE Condition at time of disposition: Improved Admit: Yes - Prescriptions - Referrals - Attestations Physician Attestion: 06/13/17 22:23 I, Dr. Bassam Ovalle, attest that this document has been prepared under my direction and personally reviewed by me in its entirety. I further attest, that it accurately reflects all work, treatment, procedures and medical decision -making performed by me.
[2017-06-03 16:42] LABS: ANION GAP 8 (8-16); BILIRUBIN,TOTAL 0.2 mg/dL (0.2-1.0); CALCIUM 8.8 mg/dL (8.5-10.1); CHOLESTEROL 186 mg/dL (50-200); CO2 27 mmol/L (21-32); CREATININE 1.1 mg/dL (0.55-1.02); GLUCOSE,RANDOM 120 mg/dL (74-106); LDL CHOLESTEROL (ONLY SJRH) 121 mg/dL (5-100); SGPT/ALT 17 U/L (12-78); TOT PROT 7.4 g/dl (6.4-8.2)
[2017-06-03 16:43] LABS: ALK PHOS 87 U/L (45-117); CPK 49 IU/L (26-192); TROPONIN I < 0.02 ng/ml (0.00-0.05)
[2017-06-03 16:57] LABS: SGOT/AST 18 U/L (15-37)
[2017-06-03 20:00] LABS: URINE APPEARANCE CLEAR; URINE BILIRUBIN NEGATIVE (NEGATIVE); URINE BLOOD 1+ (NEGATIVE); URINE COLOR COLORLESS; URINE GLUCOSE (UA) NEGATIVE (NEGATIVE); URINE KETONE NEGATIVE (NEGATIVE); URINE LEUK ESTERASE NEGATIVE (NEGATIVE); URINE NITRITE NEGATIVE (NEGATIVE); URINE PROTEIN NEGATIVE (NEGATIVE); URINE UROBILINOGEN NEGATIVE mg/dL (0.2-1.0)
[2017-06-03 20:06] LABS: URINE MUCUS RARE; URINE RBC <1 /hpf (0-3)
[2017-06-03] MEDS ORDERED: FUROSEMIDE 40 MG/4 ML INJECTABLE VIAL IVPUSH STA (21:22)
[2017-06-03] MEDS ORDERED: VALSARTAN 160 MG TABLET (UD) PO SCH (21:30)
[2017-06-03] MEDS ORDERED: amLODIPine BESYLATE 5 MG TABLET (FP) PO SCH (21:30)
[2017-06-03] MEDS ORDERED: ROSUVASTATIN CA 10 MG TABLET (FP) PO SCH (22:00)
[2017-06-03] MEDS: DABIGATRAN ETEXILATE MESYLATE 75 MG CAPSULE PO SCH (22:34)
[2017-06-04] MEDS ORDERED: METOPROLOL SUCCINATE 50 MG TAB.SR.24H (FP) ONE (00:17)
[2017-06-04] MEDS ORDERED: METOPROLOL SUCCINATE 50 MG TAB.SR.24H (FP) PO ONE (00:30)
[2017-06-04 00:51] VITALS: BMI 28.3
[2017-06-04] MEDS ORDERED: PT OWN MED DRAWER 7, Y5N ONE (09:13)
--- NOTE | 2017-06-04 09:24 | CON.NEURO ---
Consult - History of Present Illness History of Present Illness: lurring of speech , confusion and right arm weakness HPI 76 year old female history of DM, HTN Hld, atrial fibrillation and two stroke/tia . She came to ed for confusion and speech is being different. Yesterday she seems to be improved and now she is owrse this morning as per patient. Her speech is slurred and right arm is weak. She also complaining of headhace. she is on pradaxa and crestor for stroke prevention. She has last episode in dec 2016. from which she completely recovered. 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 Cardio/Vascular: Yes: AFIB, HTN, Hyperlipdemia ...: No Psych: Yes: Anxiety Musculoskeletal: Yes: Chronic low back pain Endocrine: Yes: Diabetes Mellitus - Alcohol/Substance Use Hx Alcohol Use: No - Smoking History Smoking history: Never smoked Have you smoked in the past 12 months: No Aproximately how many cigarettes per day: 0 - Social History ADL: Independent History of Recent Travel: No Home Medications - Allergies Allergies/Adverse Reactions: Allergies Allergy/AdvReac Type Severity Reaction Status Date / Time No Known Allergies Allergy Verified 06/03/17 16:13 - Home Medications Home Medications: Ambulatory Orders Candesartan Cilexetil [Atacand -] 16 mg PO DAILY 06/03/17 Dabigatran Etexilate Mesylate [Pradaxa -] 75 mg PO BID 06/03/17 Gabapentin 100 mg PO BID 06/03/17 Metformin HCl [Metformin HCl ER] 500 mg PO DAILY 06/03/17 Metoprolol Succinate [Toprol Xl -] 50 mg PO HS 06/03/17 Metoprolol Succinate [Toprol Xl] 100 mg PO DAILY 06/03/17 Rosuvastatin [Crestor -] 10 mg PO HS 06/03/17 Physical Exam-Neuro Vital Signs: Vital Signs Temperature 97.9 F 06/04/17 06:00 Pulse Rate 117 H 06/04/17 06:17 Respiratory Rate 22 06/04/17 06:17 Blood Pressure 149/88 06/04/17 06:17 O2 Sat by Pulse Oximetry (%) 99 06/03/17 20:30 Labs: INR, PTT INR 1.08 (0.82-1.09) 06/03/17 16:04 NIH Stroke Scale - Total Score NIH Stroke Scale Score: 0 Imaging - Results Cat Scan: Report Reviewed Assessment/Plan cc slurring of speech , confusion and right arm weakness HPI 76 year old female history of DM, HTN Hld, atrial fibrillation and two stroke/tia . She came to ed for confusion and speech is being different. Yesterday she seems to be improved and now she is owrse this morning as per patient. Her speech is slurred and right arm is weak. She also complaining of headhace. she is on pradaxa and crestor for stroke prevention. She has last episode in dec 2016. from which she completely recovered. Past Medical History as above. ROS, Surgery history and Soical History reviewed in chart No allergies Home Medication Candesartan/Hydrochlorothiazid [Candesartan-Hctz 16-12.5 mg Tb] 1 each PO ASDIR 06/03/17 Dabigatran Etexilate Mesylate [Pradaxa -] 75 mg PO BID 06/03/17 Gabapentin 100 mg PO ASDIR 06/03/17 Metformin HCl 500 mg PO ASDIR 06/03/17 Metoprolol Succinate [Toprol Xl -] 50 mg PO BID 06/03/17 Rosuvastatin [Crestor -] 10 mg PO ASDIR 06/03/17 Neurological Exmination alert oriented x 3, speech is slurred right sided facial palsy there is right pronator drift legs have good strength able to swallow nih score of 4 CT Head was unremarkable Assessment- Left mca lacunar sydrome ( facial droopiness, dysarthria and right drift), ct head was unremarkable Plan-- mri of brain, carotid ultrasound, tele monitoring - suggest to add aspirin, given that she has stroke while taking pradaxa and clinically appears to be lacunar syndrome ( would discuss with primary team) - suggest to increase cretor to 20 mg for short term - carotid ultrasound, tele monitoring - risk factor modification - stroke education - continue pradaxa given she have atrial fibrillation
[2017-06-04] MEDS ORDERED: ROSUVASTATIN CA 20 MG TABLET (FP) PO ONE ×2 (09:28)
[2017-06-04] MEDS: METOPROLOL TARTRATE 50 MG TABLET (FP) PO SCH ×2 (09:30→21:45)
[2017-06-04] MEDS: VALSARTAN 80 MG TABLET (UD) PO SCH (09:31)
[2017-06-04] MEDS: DABIGATRAN ETEXILATE MESYLATE 75 MG CAPSULE PO SCH ×2 (10:44→21:45)
--- NOTE | 2017-06-04 13:30 | EKG ---
Test Reason : Blood Pressure : / mmHG Vent. Rate : 068 BPM Atrial Rate : 068 BPM P-R Int : 156 ms QRS Dur : 078 ms QT Int : 376 ms P-R-T Axes : 039 032 039 degrees QTc Int : 399 ms NORMAL SINUS RHYTHM POSSIBLE LEFT ATRIAL ENLARGEMENT BORDERLINE ECG WHEN COMPARED WITH ECG OF 25-DEC-2016 10:32, SINUS RHYTHM HAS REPLACED ATRIAL FIBRILLATION VENT. RATE HAS DECREASED BY 37 BPM CLINICAL CORRELATION IS RECOMMENDED Confirmed by GRETA NICHOLE MD ([id number]) on 06/04/2017 1:29:36 PM Referred By: Confirmed By:GRETA NICHOLE MD
--- NOTE | 2017-06-04 13:52 | RAPID ---
Physical Examination Vital Signs: Vital Signs Temperature 97.6 F 06/04/17 09:29 Pulse Rate 125 H 06/04/17 09:29 Respiratory Rate 20 06/04/17 09:29 Blood Pressure 120/86 06/04/17 09:29 O2 Sat by Pulse Oximetry (%) 96 06/04/17 09:30 Constitutional: Yes: Anxious, Obese Eyes: Yes: Conjunctiva Clear, EOM Intact HENT: Yes: Atraumatic, Normocephalic Cardiovascular: Yes: Tachycardia, Pulse Irregular, S1, S2 Respiratory: Yes: Regular Gastrointestinal: Yes: Normal Bowel Sounds, Soft Extremities: No: Calf Tenderness, Erythema Edema: No Peripheral Pulses WNL: Yes Peripheral Pulses: Left Radial: 2+, Right Radial: 2+, Left Doralis Pedis: 2+, Right Dorsalis Pedis: 2+ Neurological: Yes: Alert, Aphasia, Confusion, Cran Nerves II-XII Intact, Facial Droop (right), Lethargy, Weakness. No: Numbness, Paresthesia ...Motor Strength: LUE (5/5), LLE (5/5), RUE (non mobile), RLE (5/5) Rapid Response - Rapid Response Assessment: This is a 76 year old female with a past medical history of hypertension, hyperlipidemia, parox atrial fibrillation (on pradaxa), diabetes mellitus, CVA x2, initially presented tot [facility] for concerns for CVA with left sided weakness. Code segura was activated and protocol initiated. This afternoon around 12 pm nurse noticed change in patient, she was eating and then became aphasic with inability to move right arm. Another code segura was called. # CVA -Code segura activated -NIH stroke scale 15 -Stroke head CT -cardiac profile -tsh -lipid profile -Cardiology on board; would leave pradaxa on for now; discuss with heme/primary efficacy of pradaxa -start ASA 81mg daily -brain MRI -Dr Maharaj/primary notified -transfer to ICU Primary Physician Notified: Yordy Dobson Time PMD Notified: 14:12 Critical Care Total Critical Care Time (in minutes): 35 Critical Care Statement: The care of this patient involved high complexity decision making to prevent further life threatening deterioration of the patient 's condition and/or to evalute & treat vital organ system(s) failure or risk of failure. Suspected CVA - Suspected CVA MD Exam Time (Code [place] Time): 01:00 CT Stroke ordered: Yes Stat "Code [place]" Consult to Neurology called: Yes Last Known Well (Date): 06/04/17 Last Known Well (Time): 12:00 Symptom Discovery (Date): 06/04/17 Symptom Discovery (Time): 12:15
--- NOTE | 2017-06-04 14:05 | HP ---
Admitting History and Physical - Primary Care Physician PCP: Yordy Dobson - Admission Chief Complaint: weaknes and tingling of Left arm History of Present Illness: 76 y/o female with AFIB, Hypertension, DM and two CVAs with full recovery except for some loss of memory. She felt some weakness of her left extremity with tingling which improved.She called her son around 3.18pm who noted that her voice had changed and she was panicky and somewhat confused.Exam in ED was essentially negative. She was hypertensive.A CT scan of Brain was performed which did not show any new infarcts or hemorrhage only an old infarct. She was admitted to telemetry. Her BP kristi to 200 systolic and she was treated with IV Lasix, Amlodipine 5mg and Valsartan 160mg. An hour later her BP was 160 systolic. Also aroun d midnight her HR was 140 and she was treated with Toprol 50mg. Around noon patient had severe speech dificulty and became pale , BP dropped to 90. Speech became very slurred. She was transferred to ICU. 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 Cardiovascular: Yes: AFIB, HTN, Hyperlipdemia ...: No Psych: Yes: Anxiety Musculoskeletal: Yes: Chronic low back pain, Osteoarthritis Endocrine: Yes: Diabetes Mellitus - Smoking History Smoking history: Never smoked Have you smoked in the past 12 months: No Aproximately how many cigarettes per day: 0 - Alcohol/Substance Use Hx Alcohol Use: No - Social History ADL: Independent History of Recent Travel: No Home Medications - Allergies Allergies/Adverse Reactions: Allergies Allergy/AdvReac Type Severity Reaction Status Date / Time No Known Allergies Allergy Verified 06/03/17 16:13 - Home Medications Home Medications: Ambulatory Orders Candesartan Cilexetil [Atacand -] 16 mg PO DAILY 06/03/17 Dabigatran Etexilate Mesylate [Pradaxa -] 75 mg PO BID 06/03/17 Gabapentin 100 mg PO BID 06/03/17 Metformin HCl [Metformin HCl ER] 500 mg PO DAILY 06/03/17 Metoprolol Succinate [Toprol Xl -] 50 mg PO HS 06/03/17 Metoprolol Succinate [Toprol Xl] 100 mg PO DAILY 06/03/17 Rosuvastatin [Crestor -] 10 mg PO HS 06/03/17 Review of Systems - Review of Systems Constitutional: reports: No Symptoms Eyes: reports: No Symptoms HENT: reports: No Symptoms Neck: reports: No Symptoms Cardiovascular: reports: Palpitations Respiratory: reports: No Symptoms Gastrointestinal: reports: No Symptoms Genitourinary: reports: No Symptoms Breasts: reports: No Symptoms Reported Musculoskeletal: reports: Back Pain Integumentary: reports: No Symptoms Neurological: reports: Dizziness, Parasthesia Psychiatric: reports: Anxiety Physical Examination Vital Signs: Vital Signs Temperature 97.6 F 06/04/17 09:29 Pulse Rate 125 H 06/04/17 09:29 Respiratory Rate 20 06/04/17 09:29 Blood Pressure 120/86 06/04/17 09:29 O2 Sat by Pulse Oximetry (%) 96 06/04/17 09:30 Constitutional: Yes: Well Nourished, Calm Eyes: Yes: Conjunctiva Clear, EOM Intact HENT: Yes: WNL Neck: Yes: Supple, Trachea Midline Cardiovascular: Yes: Pulse Irregular, S1, S2 Respiratory: Yes: WNL Gastrointestinal: Yes: Normal Bowel Sounds, Soft Renal/: Yes: WNL Breast(s): Yes: WNL Musculoskeletal: Yes: Back Pain Edema: No Peripheral Pulses WNL: Yes Integumentary: Yes: WNL Neurological: Yes: Alert, Oriented, Dysarthria, Facial Droop, Weakness, Other ( Slurred speech is quite prominent. Weakness of flexors of right wrist) Imaging - Results Cat Scan: Report Reviewed MRI: Report Reviewed Problem List - Problems (1) Anticoagulation management encounter Code(s): Z51.81 - ENCOUNTER FOR THERAPEUTIC DRUG LEVEL MONITORING Z79.01 - ASSISTED (CURRENT) USE OF 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 (2) CAD (coronary artery disease) Code(s): I25.10 - ATHSCL HEART DISEASE OF [place] CORONARY ARTERY W/O ANG PCTRS (3) Cerebral infarct Assessment/Plan: MRI shows multiple small infarcts that suggest possibility of embolic aetiology. Code(s): I63.9 - CEREBRAL INFARCTION, UNSPECIFIED (4) Diabetes Assessment/Plan: well controlled Code(s): E11.9 - TYPE 2 DIABETES MELLITUS WITHOUT COMPLICATIONS (5) Hyperlipidemia Assessment/Plan: Has not been consistent in taking her meds, rosuvastatin Code(s): E78.5 - HYPERLIPIDEMIA, UNSPECIFIED (6) Hypertension Code(s): I10 - ESSENTIAL (PRIMARY) HYPERTENSION (7) Obesity Code(s): E66.9 - OBESITY, UNSPECIFIED (8) Paroxysmal atrial fibrillation Code(s): I48.0 - PAROXYSMAL ATRIAL FIBRILLATION Assessment/Plan MP: Acute cerebral infarcts Hypertension Atrial fibrillation Dementia Diabetes II. Plan: Continue to monitor for progression of clinical findings , but appears as per her sons that speech has improved in the last couple of hours. Swallowing assessment to be done specially with severe speech impediment. To start PT in AM. Discussed at length with family about how to pursue in monitoring her med. intake at home and also to visit patient on a daily basis to ascertain regular intake of prescribed medication. Continue to monitor patient in ICU at present.
[2017-06-04] MEDS: ASPIRIN 81 MG CHEWABLE TABLETS PO SCH (15:26)
[2017-06-04 16:09] LABS: CHOLESTEROL 190 mg/dL (50-200); LDL CHOLESTEROL (ONLY SJRH) 128 mg/dL (5-100)
[2017-06-04 16:16] LABS: CPK 36 IU/L (26-192); THYROID STIMULATING HORMONE 1.29 uIU/ml (0.358-3.74); TROPONIN I < 0.02 ng/ml (0.00-0.05)
--- NOTE | 2017-06-04 17:17 | HOSP ---
Subjective - Review of Symptoms Events since last encounter: 76 year old female w/ PMH DM, HTN Hld, a-fib and two stroke/tia . Presented to ED because of feeling of weakness and trouble speaking. She was transferred to the ICU after a worsening of neurological deficits as per son. Patient was seen and examined with both sons at bedside. As per sons, patient's symptoms have been improving over the course of the day. They state that the patient is "detention back to her baseline" Physical Examination Vital Signs: Vital Signs Temperature 97.6 F 06/04/17 09:29 Pulse Rate 116 H 06/04/17 15:00 Respiratory Rate 18 06/04/17 15:00 Blood Pressure 160/90 06/04/17 15:00 O2 Sat by Pulse Oximetry (%) 96 06/04/17 09:30 Constitutional: Yes: No Distress, Calm Eyes: Yes: Conjunctiva Clear, EOM Intact HENT: Yes: Atraumatic, Normocephalic Neck: Yes: Supple, Trachea Midline Cardiovascular: Yes: Regular Rate and Rhythm, S1, S2. No: Gallop, Murmur, Rub Respiratory: Yes: Regular, CTA Bilaterally Gastrointestinal: Yes: Normal Bowel Sounds, Soft. No: Tenderness, Tenderness, Rebound Neurological: Yes: Alert, Oriented, Cran Nerves II-XII Intact, Dysarthria ( Minor dysarthria), Facial Droop (minor right sided facial droop), Other ( proprioception intact). 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
--- NOTE | 2017-06-04 17:24 | HOSP ---
Subjective - Review of Symptoms Events since last encounter: 76 year old female w/ PMH DM, HTN Hld, a-fib and two stroke/tia . Presented to ED because of feeling of weakness and trouble speaking. She was transferred to the ICU after a worsening of neurological deficits as per son. Patient was seen and examined with both sons at bedside. As per sons, patient's symptoms have been improving over the course of the day. They state that the patient is "group home back to her baseline" General: Yes: Fatigue. No: Chills, Night Sweats, Malaise Pulmonary: No: Dyspnea, Cough Cardiovascular: No: Chest Pain, Palpitations Gastrointestinal: No: Nausea, Vomiting, Abdominal Pain Neurological: Yes: Weakness, Change in speech Physical Examination Vital Signs: Vital Signs Temperature 97.6 F 06/04/17 09:29 Pulse Rate 96 H 06/04/17 15:21 Respiratory Rate 18 06/04/17 15:21 Blood Pressure 138/90 06/04/17 15:21 O2 Sat by Pulse Oximetry (%) 96 06/04/17 09:30 Constitutional: Yes: No Distress, Calm Eyes: Yes: Conjunctiva Clear, EOM Intact HENT: Yes: Atraumatic, Normocephalic Neck: Yes: Supple, Trachea Midline Cardiovascular: Yes: Regular Rate and Rhythm, S1, S2. No: JVD, Gallop, Murmur, Rub Respiratory: Yes: Regular, CTA Bilaterally Gastrointestinal: Yes: Normal Bowel Sounds, Soft. 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 Presented to ED because of feeling of weakness and trouble speaking. She was transferred to the ICU after a worsening of neurological deficits as per son. -patient's symptoms are improving -will monitor vital signs and neurological status in ICU Visit type - Emergency Visit Emergency Visit: Yes ED Registration Date: 06/03/17 Care time: The patient presented to the Emergency Department on the above date and was hospitalized for further evaluation of their emergent condition. - New Patient This patient is new to me today: Yes Date on this admission: 06/04/17 - Critical Care Critical Care patient: Yes Total Critical Care Time (in minutes): 35 Critical Care Statement: The care of this patient involved high complexity decision making to prevent further life threatening deterioration of the patient 's condition and/or to evalute & treat vital organ system(s) failure or risk of failure.
--- NOTE | 2017-06-04 18:11 | PN ---
Progress Note (short form) - Note Progress Note: Spoke with Dr. Maharaj on 06/04/2017 @ 18:00. As per his recommendations, cancelling MRA of brain and ordered Carotid doppler.
--- NOTE | 2017-06-04 20:33 | CONSULT ---
Consult Consult Specialty:: Pulmonary/ Critical Care Referred by:: Xavier Reason for Consultation:: CVA - History of Present Illness Chief Complaint: confusion History of Present Illness: 76 y/o woman with PMH HTN, hyperlipidemia, paroxysmal Afib (on pradaxa), DM, CVA x 2 (with residual minor LUE weakness) who presented with confusion and concern for recurrent CVA. Briefly, per pts son, she called him on 06/03 saying that she was confused and her speech and voice were different. She also noted tingling in her L hand. On arrival to ED pt was hypertensive with minimal LUE weakness and code segura was activated. CT head was negative for acute process. She was not given ASA as she was on pradaxa. She was seen by neurology and admitted to the floor for monitoring. On 06/04 while on the floor pt was eating and became aphasic with inability to move right arm, [employer] called and code segura again activated. CT head negative, MRI brain done which showed small acute left frontal and left posterior temporal cortical infarcts as well as small acute left frontal subcortical infarcts. It was also notable for chronic moderate to large right parietal/ temporal cortical infarct. Pt transferred to ICU for further monitoring. Dr. Park, pts PMD notified of pts admission, at bedside talking to family. Dr. Maharaj updated, recd holding amlodipine to avoid hypotension. Active Medications Aspirin (Asa -) 81 mg PO DAILY [facility] Last Admin: 06/04/17 15:26 Dose: 81 mg Dabigatran (Pradaxa -) 75 mg PO BID [facility] Last Admin: 06/04/17 10:44 Dose: 75 mg Metformin HCl (Glucophage Xr -) 500 mg PO DAILY@0700 [facility] Last Admin: 06/04/17 06:05 Dose: 500 mg Metoprolol Tartrate (Lopressor -) 50 mg PO BID [facility] Last Admin: 06/04/17 09:30 Dose: 50 mg Rosuvastatin Calcium (Crestor -) 20 mg PO [facility] Valsartan (Diovan -) 80 mg PO DAILY [facility] Last Admin: 06/04/17 09:31 Dose: 80 mg - History Source History Provided By: Family Member, Medical Record Limitations to Obtaining History: No Limitations - Past Medical History 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 Cardio/Vascular: Yes: AFIB, HTN, Hyperlipdemia ...: No Psych: Yes: Anxiety Musculoskeletal: Yes: Chronic low back pain Endocrine: Yes: Diabetes Mellitus - Alcohol/Substance Use Hx Alcohol Use: No - Smoking History Smoking history: Never smoked Have you smoked in the past 12 months: No Aproximately how many cigarettes per day: 0 - Social History Usual Living Arrangement: With Spouse ADL: Independent History of Recent Travel: No Home Medications - Allergies Allergies/Adverse Reactions: Allergies Allergy/AdvReac Type Severity Reaction Status Date / Time No Known Allergies Allergy Verified 06/03/17 16:13 - Home Medications Home Medications: Ambulatory Orders Candesartan Cilexetil [Atacand -] 16 mg PO DAILY 06/03/17 Dabigatran Etexilate Mesylate [Pradaxa -] 75 mg PO BID 06/03/17 Gabapentin 100 mg PO BID 06/03/17 Metformin HCl [Metformin HCl ER] 500 mg PO DAILY 06/03/17 Metoprolol Succinate [Toprol Xl -] 50 mg PO HS 06/03/17 Metoprolol Succinate [Toprol Xl] 100 mg PO DAILY 06/03/17 Rosuvastatin [Crestor -] 10 mg PO HS 06/03/17 Family Disease History - Family Disease History Family History: Unable to Obtain Review of Systems - Review of Systems Constitutional: reports: Weakness (L sided weakenss as per HPI) Neurological: reports: Change in Speech, Confusion, Parasthesia, Pre-Existing Deficit Physical Exam Vital Signs: Vital Signs Temperature 97.7 F 06/04/17 18:20 Pulse Rate 96 H 06/04/17 18:20 Respiratory Rate 18 06/04/17 18:20 Blood Pressure 151/92 06/04/17 18:20 O2 Sat by Pulse Oximetry (%) 96 06/04/17 16:00 Constitutional: Yes: Well Nourished, Calm Eyes: Yes: Conjunctiva Clear, PERRL HENT: Yes: Atraumatic Cardiovascular: Yes: Pulse Irregular, S1, S2 Respiratory: Yes: CTA Bilaterally Gastrointestinal: Yes: WNL, Normal Bowel Sounds Extremities: Yes: WNL Edema: No Peripheral Pulses WNL: Yes Integumentary: Yes: WNL Neurological: Yes: Alert, Aphasia (mild aphasia), Facial Droop, Weakness (mild R sided weakness UE). No: Numbness, Tingling ...Motor Strength: RUE (mild RUE weakness) Labs: CBCD WBC 8.7 K/mm3 (4.0-10.0) D 06/03/17 16:10 RBC 3.75 M/mm3 (3.60-5.2) 06/03/17 16:10 Hgb 11.0 GM/dL (10.7-15.3) 06/03/17 16:10 Hct 33.7 % (32.4-45.2) 06/03/17 16:10 MCV 89.9 fl (80-96) 06/03/17 16:10 MCHC 32.5 g/dl (32.0-36.0) 06/03/17 16:10 RDW 14.5 % (11.6-15.6) 06/03/17 16:10 Plt Count 266 K/MM3 (134-434) D 06/03/17 16:10 MPV 8.5 fl (7.5-11.1) 06/03/17 16:10 CMP Sodium 139 mmol/L (136-145) 06/03/17 16:10 Potassium 4.6 mmol/L (3.5-5.1) 06/03/17 16:10 Chloride 104 mmol/L (98-107) 06/03/17 16:10 Carbon Dioxide 27 mmol/L (21-32) 06/03/17 16:10 Anion Gap 8 (8-16) 06/03/17 16:10 BUN 24 mg/dL (7-18) H D 06/03/17 16:10 Creatinine 1.1 mg/dL (0.55-1.02) H D 06/03/17 16:10 Creat Clearance w eGFR 48.04 (>60) 06/03/17 16:10 Calcium 8.8 mg/dL (8.5-10.1) 06/03/17 16:10 Total Bilirubin 0.2 mg/dL (0.2-1.0) D 06/03/17 16:10 AST 18 U/L (15-37) 06/03/17 16:10 ALT 17 U/L (12-78) 06/03/17 16:10 Alkaline Phosphatase 87 U/L (45-117) 06/03/17 16:10 Total Protein 7.4 g/dl (6.4-8.2) 06/03/17 16:10 Albumin 3.0 g/dl (3.4-5.0) L 06/03/17 16:10 Troponin, BNP 06/04/17 15:00 Troponin I < 0.02 Imaging - Results Chest X-ray: Report Reviewed Cat Scan: Report Reviewed MRI: Report Reviewed Problem List - Problems (1) CVA (cerebral vascular accident) Code(s): I63.9 - CEREBRAL INFARCTION, UNSPECIFIED Qualifiers: CVA mechanism: unspecified Qualified Code(s): I63.9 - Cerebral infarction, unspecified (2) Atrial fibrillation Code(s): I48.91 - UNSPECIFIED ATRIAL FIBRILLATION (3) CAD (coronary artery disease) Code(s): I25.10 - ATHSCL HEART DISEASE OF [place] CORONARY ARTERY W/O ANG PCTRS (4) Diabetes Code(s): E11.9 - TYPE 2 DIABETES MELLITUS WITHOUT COMPLICATIONS (5) Hyperlipidemia Code(s): E78.5 - HYPERLIPIDEMIA, UNSPECIFIED (6) Hypertension Code(s): I10 - ESSENTIAL (PRIMARY) HYPERTENSION (7) Paroxysmal atrial fibrillation Code(s): I48.0 - PAROXYSMAL ATRIAL FIBRILLATION Assessment/Plan Assessment/ Plan: 76 y/o woman with PMH HTN, hyperlipidemia, paroxysmal Afib (on pradaxa), DM, CVA x 2 who presented with concern for recurrent CVA, s/p negative head CT, course complicated by episode of aphasia and brief R hemiparesis again s/p negative CT, but with MRI notable for new left frontal, posterior temporal cortical and subcortical infarcts, now admitted to ICU for further monitoring. Neuro: h/o CVA x2, now admitted with new small left frontal, posterior temporal cortical and subcortical infarcts -plan per Dr. Maharaj, neurology -frequent neuro exams, CT for any acute changes -carotid dopplers pending -continue pradaxa -continue ASA -continue statin -avoid hypotension - holding pm dose amlodipine per neuro CV: HTN, hyperlipidemia, paroxysmal Afib -hemodynamic monitoring -continue metoprolol -hold pm dose Amlodipine, resume as appropriate -continue statin -continue valsartan Endo: DM -continue metformin -monitor blood glucose PPX: -systemic anticoagulation -no indication for GI ppx DISPO: Full Code Windy MANN CC Time: 35 mins
[2017-06-04] MEDS ORDERED: amLODIPine BESYLATE 5 MG TABLET (FP) PO SCH (22:00)
[2017-06-04] MEDS ORDERED: ROSUVASTATIN CA 20 MG TABLET (FP) PO SCH (22:00)
[2017-06-04] MEDS ORDERED: ZOLPIDEM TARTRATE 5 MG TABLET PO SCH (22:00)
--- NOTE | 2017-06-05 01:22 | CON.CARD ---
Consult Consult Specialty:: cardiology Reason for Consultation:: ?new CVA - History of Present Illness Chief Complaint: Pt, in ICU, is initially anxious, but calms down with help of son at bedside. Moves all extremities History of Present Illness: 76y woman (al Whitman) with PM hx of htn, hl, pafib, dm, cva (x2), presenting with concern for cVA. Pt's son states pt had an episode of confusion when she thought she heard her outside, but didnt see him and became confused. Pt does note that she had an episode of L arm sensory changes and weakness, around lunch time. On arrival pt noted to be hypertensive (reportedly >200 mmHg ) with very minimal weakness of LUE. code segura was activated at arrival. Pt was given several antihypertensives; today, while eating lunch, became aphasic; systolic BP was noted to be extremely low. She was transfered to ICU. 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 Cardio/Vascular: Yes: AFIB, HTN, Hyperlipdemia Renal/: Yes: Renal Inusuff Reproductive: Yes: Postmenopausal ...: No Psych: Yes: Anxiety Musculoskeletal: Yes: Chronic low back pain Endocrine: Yes: Diabetes Mellitus - Alcohol/Substance Use Hx Alcohol Use: No - Smoking History Smoking history: Never smoked Have you smoked in the past 12 months: No Aproximately how many cigarettes per day: 0 - Social History Usual Living Arrangement: With Spouse ADL: Independent History of Recent Travel: No Home Medications - Allergies Allergies/Adverse Reactions: Allergies Allergy/AdvReac Type Severity Reaction Status Date / Time No Known Allergies Allergy Verified 06/03/17 16:13 - Home Medications Home Medications: Ambulatory Orders Candesartan Cilexetil [Atacand -] 16 mg PO DAILY 06/03/17 Dabigatran Etexilate Mesylate [Pradaxa -] 75 mg PO BID 06/03/17 Gabapentin 100 mg PO BID 06/03/17 Metformin HCl [Metformin HCl ER] 500 mg PO DAILY 06/03/17 Metoprolol Succinate [Toprol Xl -] 50 mg PO HS 06/03/17 Metoprolol Succinate [Toprol Xl] 100 mg PO DAILY 06/03/17 Rosuvastatin [Crestor -] 10 mg PO HS 06/03/17 Family Disease History - Family Disease History Family History: Denies Review of Systems - Review of Systems Constitutional: reports: Weakness Eyes: reports: No Symptoms HENT: reports: No Symptoms Neck: reports: No Symptoms Cardiovascular: reports: Palpitations Gastrointestinal: reports: No Symptoms Genitourinary: reports: No Symptoms Musculoskeletal: reports: Muscle Weakness Integumentary: reports: No Symptoms Neurological: reports: Pre-Existing Deficit, Weakness Psychiatric: reports: Anxiety - Risk Factors Known Risk Factors: Yes: Age, Hypercholesterolemia, Hypertension, Physical Inactivity, Prior CT /Emb Stroke Vital Signs: Vital Signs Temperature 98.0 F 06/04/17 22:00 Pulse Rate 97 H 06/05/17 00:00 Respiratory Rate 22 06/05/17 00:00 Blood Pressure 129/112 06/05/17 00:00 O2 Sat by Pulse Oximetry (%) 96 06/04/17 20:37 Constitutional: Yes: Anxious Eyes: Yes: WNL HENT: Yes: WNL Neck: Yes: WNL Respiratory: Yes: Regular Gastrointestinal: Yes: Soft Renal/: No: Anuria Cardiovascular: Yes: Tachycardia, Pulse Irregular JVD: No Carotid Bruit: No PMI: Non-Displaced Heart Sounds: Yes: S1 (varies in intensity), S2, S4 Murmur: Yes: Systolic Murmur, Grade 2 Musculoskeletal: Yes: Muscle Weakness Extremities: Yes: WNL Edema: No Peripheral Pulses WNL: Yes Integumentary: Yes: WNL Neurological: Yes: Alert, Oriented, Weakness Psychiatric: Yes: Other - Other Data Labs, Other Data: INR, PTT INR 1.08 (0.82-1.09) 06/03/17 16:04 Troponin, BNP 06/04/17 15:00 Troponin I < 0.02 Troponin, BNP 06/04/17 15:00 Troponin I < 0.02 Imaging - Results EKG: Image Reviewed (AF) Other: Image Reviewed (telemetry: AF with RVR) Problem List - Problems (1) Anticoagulation management encounter Assessment/Plan: Pt's son says she has been compliant to medications at home. Continue Pradaxa while awaiting MRI of brain; if (+) for new infarct, would change to IV heparin, and have hematologic input into choice of future PO anticoagulant. Code(s): Z51.81 - ENCOUNTER FOR THERAPEUTIC DRUG LEVEL MONITORING Z79.01 - RETIREMENT (CURRENT) USE OF 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 (2) Diabetes Assessment/Plan: On glucaphage; consider adding an SGLT-2 inhibitor because of its potential for lowering cardiac events/mortality. On ARB. Code(s): E11.9 - TYPE 2 DIABETES MELLITUS WITHOUT COMPLICATIONS (3) Hypertension Assessment/Plan: Pt was initially admitted with severe HTN, but, within 24 hours, was noted to by hypotensive. Continue metoprolol for HTN and AF; adjust doses of antihypertensives based on serial BP and HR. Hold furosemide; f/u Is and Os, BUN/Cr, elecgtrolytes. 1st TNI < 0.02. ECHO for LVEF, valve status, chamber sizes. Code(s): I10 - ESSENTIAL (PRIMARY) HYPERTENSION (4) Hyperlipidemia Assessment/Plan: Statin. Keep LDL cholesterol < 70 mg/dL. F/u TSH. Code(s): E78.5 - HYPERLIPIDEMIA, UNSPECIFIED (5) Paroxysmal atrial fibrillation Assessment/Plan: on metoprolol for HR control. On pradaxa for anticoagulation; may need to change if pt has had "breakthrough" emboli. Code(s): I48.0 - PAROXYSMAL ATRIAL FIBRILLATION Assessment/Plan cc time spent perusing chart and speaking with involved staff, evaluating pt, formulating note: 70 minutes.
[2017-06-05 06:37] LABS: BASOPHIL 0.9 % (0-2.0); EOSINOPHIL 0.8 % (0-4.5); MCH 29.4 pg (25.7-33.7); MCHC 32.6 g/dl (32.0-36.0); MEAN CELL VOLUME 90.2 fl (80-96); MEAN PLT VOLUME 8.7 fl (7.5-11.1); NEUTROPHILS 55.4 % (42.8-82.8); PLATELET COUNT 299 K/MM3 (134-434); RDW 14.1 % (11.6-15.6); WHITE BLOOD COUNT 7.8 K/mm3 (4.0-10.0)
[2017-06-05 07:01] LABS: ANION GAP 5 (8-16); CALCIUM 9.2 mg/dL (8.5-10.1); CO2 35 mmol/L (21-32); CREATININE 0.8 mg/dL (0.55-1.02); GLUCOSE,RANDOM 127 mg/dL (74-106)
--- NOTE | 2017-06-05 07:48 | PN ---
Progress Note (short form) - Note Progress Note: cc slurring of speech , confusion and right arm weakness two days ago HPI 76 year old female history of DM, HTN Hld, atrial fibrillation and two stroke/tia . She came to ed for confusion and speech is being different. she is on pradaxa and crestor for stroke prevention. yesterday patient has become worse and when resident examined she was found to have aphasia and now she is talking and no problem comprehension and she still have mild right arm weakness and facial droop. mri showed there is left frontal infarct Past Medical History as above. ROS, Surgery history and Soical History reviewed in chart No allergies Neurological Exmination bp 146/95 alert follow command , speech is slurred right sided facial palsy there is right pronator drift legs have good strength CT Head was unremarkable mri of brain showed left frontal stroke Assessment- Left sided ( frontal lobe) acute ischemic stroke ( facial droopiness, dysarthria and right drift), exam remain unchagned since yesterday , it is possible that she has crecendo -decrecendo like symptoms due to ongoing thrombosis Plan-- follow carotid ultrasound report - continue apsirin and crestor and pradaxa - icu monitoring, bp and neuro checks, if she remains stable can be transferred to floor either later today or tomorrow am - please call me if you have any question - speech to follow thank you so much Sebastian Harp MD Neurology Attending
[2017-06-05] MEDS ORDERED: PT OWN MED DRAWER 7, Y5N ONE ×2 (09:43→22:14)
[2017-06-05] MEDS: METOPROLOL TARTRATE 50 MG TABLET (FP) PO SCH ×2 (09:45→22:40)
[2017-06-05] MEDS: ASPIRIN 81 MG CHEWABLE TABLETS PO SCH (09:45)
[2017-06-05] MEDS: DABIGATRAN ETEXILATE MESYLATE 75 MG CAPSULE PO SCH ×2 (09:45→22:41)
[2017-06-05] MEDS: VALSARTAN 80 MG TABLET (UD) PO SCH (09:45)
--- NOTE | 2017-06-05 10:20 | PN ---
Progress Note, Physician History of Present Illness: 76y woman (al Whitman) with PM hx of htn, hl, pafib, dm, cva (x2), presenting with concern for cVA. Pt's son states pt had an episode of confusion when she thought she heard her outside, but didnt see him and became confused. Pt does note that she had an episode of L arm sensory changes and weakness, around lunch time. On arrival pt noted to be hypertensive (reportedly >200 mmHg ) with very minimal weakness of LUE. code segura was activated at arrival. Pt was given several antihypertensives; today, while eating lunch, became aphasic; systolic BP was noted to be extremely low. She was transfered to ICU. - Current Medication List Current Medications: Active Medications Aspirin (Asa -) 81 mg PO DAILY [facility] Last Admin: 06/05/17 09:45 Dose: 81 mg Dabigatran (Pradaxa -) 75 mg PO BID [facility] Last Admin: 06/05/17 09:45 Dose: 75 mg Metformin HCl (Glucophage Xr -) 500 mg PO DAILY@0700 [facility] Last Admin: 06/05/17 06:31 Dose: 500 mg Metoprolol Tartrate (Lopressor -) 50 mg PO BID [facility] Last Admin: 06/05/17 09:45 Dose: 50 mg Rosuvastatin Calcium (Crestor -) 20 mg PO HS [facility] Last Admin: 06/04/17 21:45 Dose: 20 mg Valsartan (Diovan -) 80 mg PO DAILY [facility] Last Admin: 06/05/17 09:45 Dose: 80 mg - Objective Vital Signs: Vital Signs Temperature 98.3 F 06/05/17 10:00 Pulse Rate 98 H 06/05/17 10:00 Respiratory Rate 16 06/05/17 10:00 Blood Pressure 146/99 06/05/17 10:00 O2 Sat by Pulse Oximetry (%) 96 06/04/17 20:37 Labs: CBC, BMP 06/05/17 05:30 06/05/17 05:30 INR, PTT INR 1.08 (0.82-1.09) 06/03/17 16:04
--- NOTE | 2017-06-05 11:33 | CONSULT ---
Admitting History and Physical - Primary Care Physician PCP: Yordy Dobson - Admission History of Present Illness: Per EMR: "History of Present Illness: 76 y/o woman with PMH HTN, hyperlipidemia, paroxysmal Afib (on pradaxa), DM, CVA x 2 (with residual minor LUE weakness) who presented with confusion and concern for recurrent CVA. Briefly, per pts son, she called him on 06/03 saying that she was confused and her speech and voice were different. She also noted tingling in her L hand. On arrival to ED pt was hypertensive with minimal LUE weakness and code segura was activated. CT head was negative for acute process. She was not given ASA as she was on pradaxa. She was seen by neurology and admitted to the floor for monitoring. On 06/04 while on the floor pt was eating and became aphasic with inability to move right arm, CLAIMS COUNSEL called and code segura again activated. CT head negative, MRI brain done which showed small acute left frontal and left posterior temporal cortical infarcts as well as small acute left frontal subcortical infarcts. It was also notable for chronic moderate to large right parietal/ temporal cortical infarct." Pt reports that speech is less clear than baseline.She walked with a walker and cane before this admission. 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 Cardiovascular: Yes: AFIB, HTN, Hyperlipdemia Renal/: Yes: Renal Inusuff ...: No Psych: Yes: Anxiety Musculoskeletal: Yes: Chronic low back pain Endocrine: Yes: Diabetes Mellitus - Smoking History Smoking history: Never smoked Have you smoked in the past 12 months: No Aproximately how many cigarettes per day: 0 - Alcohol/Substance Use Hx Alcohol Use: No - Social History ADL: Independent History of Recent Travel: No History - Admission Reason For Visit: CVA (NON CARDIAC TELE) - Diagnostics X-ray: Report Reviewed CT Scan: Report Reviewed MRI: Report Reviewed - General Mental Status: Alert and Oriented, Awake and Alert, Able to Follow Commands Attention: Intact Ability to Follow Directions: Good Head/Neck Control: WFL - Hearing Hearing: Functional Speech Evaluation - Communication Primary Language: GERMAN Secondary Language: YAKUT (fluent) Oral Expression Ability: Yes: Mild Impairment, Moderate Impairment - Speech Production Apraxia: Yes Able to Make Needs Known: Yes: Mildly Impaired, Moderately Impaired Intelligibility: Yes: Mildly Impaired, Moderately Impaired - Speech Characteristics Voice Loudness: Normal Voice Pitch: Yes: Normal, Mildly High Voice Phonatory-based Quality: Yes: Normal, Hoarse (mild) Speech Pattern: Impaired Speech Clarity: < 75% Nasal Resonance: Normal Articulation: Yes: Imprecise - Language/Auditory Comprehension Follows: Yes: 1 Stage Simple Commands - Language/Verbal Expression Aphasia: Yes: Anomia Able to Respond to Simple Queries: Yes: Mildly Impaired Functional Communication Status: Yes: Mildly Impaired - Memory/Perception intermediate teacher Memory: Yes: WNL Short Term Memory: Yes: WNL - Swallow Evaluation/Bedside Assessment Current Nutritional Intake: Dysphagia Pureed, [place] Textured Liquids Oral Secretions: Yes: WFL Dentition: Yes: Adequate Facial Symmetry at Rest: Facial Droop Right Facial Symmetry on Retraction: Facial Droop Right Sensation: Reduced Right Pucker Lips: Droops Right Smile: Droops Right Lingual Movement: Deviates Right (mild) Lingual Speed of Movement: Reduced Lingual Movement Characteristics: Normal Velopharyngeal Movement: Normal Laryngeal Movement: Able to Palpate Bolus Size: Small Chewing: Impaired (fairly efficient but reduced in rate and coordination.) Oral Prep Time: Increased A-P Transit: WFL Pocketing: None Coughing/Throat Clear: No Change in Voice: No Recommendations - Speech Evaluation, Impression/Plan Impression: Pt presents with imprecision of articulation with fair (+) intelligibility.Mild right facial/tongue deviation to right. Pt blows with asked to throw a kiss, c/w oral/verbal apraxia. Speech is fluent with occasional anomia. Good repetition. Excellent historian. - Disposition Discharge to: [facility] ([facility] - Dysphagia Impressions/Plan Dysphagia Impressions: Mild Impairment *Silent aspiration: cannot be R/O at bedside Dysphagia Treatment Plan: Chin Tuck/Down, Safe Rate, 1/2 tsp. at a time, Elevate HOB during feed, Other (assist with meals) Recommendations: Modified Barium Swallow (if signs of dysphagia reported or observed.) - Recommendations Diet Consistency: Dysphagia Minced, 1 - 2 Soft Items Liquids: Thin Liquids Supplement: Other (as indicated)
--- NOTE | 2017-06-05 12:06 | PN ---
Progress Note, Physician History of Present Illness: 76y woman (al Whitman) with PM hx of htn, hl, pafib, dm, cva (x2), presenting with concern for cVA. Pt's son states pt had an episode of confusion when she thought she heard her outside, but didnt see him and became confused. Pt does note that she had an episode of L arm sensory changes and weakness, around lunch time. On arrival pt noted to be hypertensive (reportedly >200 mmHg ) with very minimal weakness of LUE. code segura was activated at arrival. Pt was given several antihypertensives; today, while eating lunch, became aphasic; systolic BP was noted to be extremely low. She was transfered to ICU. - Current Medication List Current Medications: Active Medications Aspirin (Asa -) 81 mg PO DAILY [facility] Last Admin: 06/05/17 09:45 Dose: 81 mg Dabigatran (Pradaxa -) 75 mg PO BID [facility] Last Admin: 06/05/17 09:45 Dose: 75 mg Metformin HCl (Glucophage Xr -) 500 mg PO DAILY@0700 [facility] Last Admin: 06/05/17 06:31 Dose: 500 mg Metoprolol Tartrate (Lopressor -) 50 mg PO BID [facility] Last Admin: 06/05/17 09:45 Dose: 50 mg Rosuvastatin Calcium (Crestor -) 20 mg PO HS [facility] Last Admin: 06/04/17 21:45 Dose: 20 mg Valsartan (Diovan -) 80 mg PO DAILY [facility] Last Admin: 06/05/17 09:45 Dose: 80 mg - Objective Vital Signs: Vital Signs Temperature 98.3 F 06/05/17 10:00 Pulse Rate 55 L 06/05/17 11:31 Respiratory Rate 16 06/05/17 11:31 Blood Pressure 133/76 06/05/17 11:31 O2 Sat by Pulse Oximetry (%) 96 06/04/17 20:37 Eyes: Yes: WNL, Conjunctiva Clear, EOM Intact HENT: Yes: WNL, Atraumatic, Normocephalic Neck: Yes: WNL, Supple, Trachea Midline Cardiovascular: Yes: WNL, Regular Rate and Rhythm Respiratory: Yes: WNL, Regular, CTA Bilaterally Gastrointestinal: Yes: WNL, Normal Bowel Sounds Genitourinary: Yes: WNL Musculoskeletal: Yes: WNL Extremities: Yes: WNL Edema: No Integumentary: Yes: WNL ...Motor Strength: WNL Psychiatric: Yes: WNL Labs: CBC, BMP 06/05/17 05:30 06/05/17 05:30 INR, PTT INR 1.08 (0.82-1.09) 06/03/17 16:04 Problem List - Problems (1) CVA (cerebral vascular accident) Code(s): I63.9 - CEREBRAL INFARCTION, UNSPECIFIED Qualifiers: CVA mechanism: unspecified Qualified Code(s): I63.9 - Cerebral infarction, unspecified (2) Acute ischemic right middle cerebral artery (MCA) stroke Code(s): I63.511 - CEREB INFRC D/T UNSP OCCLS OR STENOS OF RIGHT MID CEREB ART (3) Anticoagulation management encounter Code(s): Z51.81 - ENCOUNTER FOR THERAPEUTIC DRUG LEVEL MONITORING Z79.01 - EFFICIENCY MINER BLASTING (CURRENT) USE OF 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 (4) CAD (coronary artery disease) Code(s): I25.10 - ATHSCL HEART DISEASE OF [place] CORONARY ARTERY W/O ANG PCTRS (5) Cerebral infarct Code(s): I63.9 - CEREBRAL INFARCTION, UNSPECIFIED (6) Diabetes Code(s): E11.9 - TYPE 2 DIABETES MELLITUS WITHOUT COMPLICATIONS (7) Dizziness Code(s): R42 - DIZZINESS AND GIDDINESS (8) Hyperlipidemia Code(s): E78.5 - HYPERLIPIDEMIA, UNSPECIFIED (9) Hypertension Code(s): I10 - ESSENTIAL (PRIMARY) HYPERTENSION (10) Obesity Code(s): E66.9 - OBESITY, UNSPECIFIED (11) Paroxysmal atrial fibrillation Code(s): I48.0 - PAROXYSMAL ATRIAL FIBRILLATION Assessment/Plan Problems (1) Anticoagulation management encounter Assessment/Plan: Pt's son says she has been compliant to medications at home. Continue Pradaxa while awaiting MRI of brain; if (+) for new infarct, would change to IV heparin, and have hematologic input into choice of future PO anticoagulant. Code(s): Z51.81 - ENCOUNTER FOR THERAPEUTIC DRUG LEVEL MONITORING Z79.01 - CUSTODIAL (CURRENT) USE OF 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 (2) Diabetes Assessment/Plan: On glucaphage; consider adding an SGLT-2 inhibitor because of its potential for lowering cardiac events/mortality. On ARB. Code(s): E11.9 - TYPE 2 DIABETES MELLITUS WITHOUT COMPLICATIONS (3) Hypertension Assessment/Plan: Pt was initially admitted with severe HTN, but, within 24 hours, was noted to by hypotensive. Continue metoprolol for HTN and AF; adjust doses of antihypertensives based on serial BP and HR. Hold furosemide; f/u Is and Os, BUN/Cr, elecgtrolytes. 1st TNI < 0.02. ECHO for LVEF, valve status, chamber sizes. Code(s): I10 - ESSENTIAL (PRIMARY) HYPERTENSION (4) Hyperlipidemia Assessment/Plan: Statin. Keep LDL cholesterol < 70 mg/dL. F/u TSH. Code(s): E78.5 - HYPERLIPIDEMIA, UNSPECIFIED (5) Paroxysmal atrial fibrillation Assessment/Plan: on metoprolol for HR control. On pradaxa for anticoagulation; may need to change if pt has had "breakthrough" emboli. Code(s): I48.0 - PAROXYSMAL ATRIAL FIBRILLATION Assessment/Plan cc time spent perusing chart aevaluating pt, formulating note: 35 minutes.
--- NOTE | 2017-06-05 15:52 | PN ---
Progress Note, Physician History of Present Illness: patient seen and examined at bedside no complaints anxious MRI showesd left posterior temporal cortical infarct - Current Medication List Current Medications: Active Medications Aspirin (Asa -) 81 mg PO DAILY [facility] Dabigatran (Pradaxa -) 75 mg PO BID [facility] Metformin HCl (Glucophage Xr -) 500 mg PO DAILY@0700 [facility] Metoprolol Tartrate (Lopressor -) 50 mg PO BID [facility] Rosuvastatin Calcium (Crestor -) 20 mg PO HS [facility] Valsartan (Diovan -) 80 mg PO DAILY [facility] - Objective Vital Signs: Vital Signs Temperature 98.6 F 06/05/17 13:16 Pulse Rate 54 L 06/05/17 13:16 Respiratory Rate 16 06/05/17 13:16 Blood Pressure 126/62 06/05/17 13:16 O2 Sat by Pulse Oximetry (%) 96 06/04/17 20:37 Constitutional: Yes: Well Nourished, No Distress, Anxious Eyes: Yes: Conjunctiva Clear, PERRL HENT: Yes: Other (right sided nasolabial fold flattening. trouble finding words. garbled speech.) Neck: Yes: Supple, Trachea Midline Cardiovascular: Yes: Pulse Irregular Respiratory: Yes: CTA Bilaterally Gastrointestinal: Yes: Normal Bowel Sounds, Soft, Abdomen, Obese Neurological: Yes: Alert, Oriented, Aphasia, Other (right upper extremity 4/5 strength left 5/5 bilateral lower extremities 5/5 strength) Psychiatric: Yes: Alert, Oriented Labs: CBC, BMP 06/05/17 05:30 06/05/17 05:30 INR, PTT INR 1.08 (0.82-1.09) 06/03/17 16:04 - ....Imaging Chest X-ray: Report Reviewed, Image Reviewed MRI: Report Reviewed, Image Reviewed Assessment/Plan 76F with extensive PMH presents to the ICU with left sided ischemic stroke. CVA: neurology consult appreciated continue aspirin continue pradaxa BP control Telemetry monitoring speech/swallow consult appreciated carotid ultrasound negative paroxysmal A fib: continue metoprolol well controlled continue pradaxa continue aspirin DM: continue metformin BGM glucose well controlled HLD: continue crestor HTN: continue metoprolol continue valsartan FEN: no IVF no electrolyte issues diabetic diet PPx: on pradaxa/SCDs no GI PPx indicated PT consult CCTime 35 min transfer to telemetry stroke unit
--- NOTE | 2017-06-05 16:24 | PN ---
Teaching Attending Note Name of Resident: Osmar Cohn ATTENDING PHYSICIAN STATEMENT I saw and evaluated the patient. I reviewed the resident's note and discussed the case with the resident. I agree with the resident's findings and plan as documented. SUBJECTIVE: Pt seen and examined in the ICU. Right sided weakness slightly improved. Tolerating PO. OBJECTIVE: Last Vital Signs Temp Pulse Resp BP Pulse Ox 98.6 F 54 L 16 126/62 96 06/05/17 13:16 06/05/17 13:16 06/05/17 13:16 06/05/17 13:16 06/04/17 20:37 Intake & Output 06/02/17 06/03/17 06/04/17 06/05/17 23:59 23:59 23:59 23:59 Intake Total 62 500 Output Total 500 200 Balance 62 0 -200 Weight 149 lb 9.6 oz 141 lb 8.588 oz Gen: NAD at rest HEENT: right facial droop Heart: RRR Lung: decreased breath sounds at the bases Abd: soft, nontender Ext: no edema CBC, BMP 06/05/17 05:30 06/05/17 05:30 Active Medications Aspirin (Asa -) 81 mg PO DAILY [facility] Dabigatran (Pradaxa -) 75 mg PO BID [facility] Metformin HCl (Glucophage Xr -) 500 mg PO DAILY@0700 [facility] Metoprolol Tartrate (Lopressor -) 50 mg PO BID [facility] Rosuvastatin Calcium (Crestor -) 20 mg PO HS [facility] Valsartan (Diovan -) 80 mg PO DAILY [facility] ASSESSMENT AND PLAN: Acute CVA Paroxysmal Atrial Fibrillation HTN DM Hypercholesterolemia - neuro checks - aspiration precautions - rate controlled - continue anticoagulation - ASA - rehab/PT
--- NOTE | 2017-06-05 21:36 | PN ---
Progress Note, Physician History of Present Illness: Denies any difficulty swallowing, denies any cough or SOB. Continues to have weakness in the right hand and unable to feed herself with right hand. Speech she feels has improved. - Current Medication List Current Medications: Active Medications Aspirin (Asa -) 81 mg PO DAILY [facility] Dabigatran (Pradaxa -) 75 mg PO BID [facility] Metformin HCl (Glucophage Xr -) 500 mg PO DAILY@0700 [facility] Metoprolol Tartrate (Lopressor -) 50 mg PO BID [facility] Rosuvastatin Calcium (Crestor -) 20 mg PO HS [facility] Valsartan (Diovan -) 80 mg PO DAILY [facility] - Objective Vital Signs: Vital Signs Temperature 99.4 F 06/05/17 19:00 Pulse Rate 67 06/05/17 20:36 Respiratory Rate 20 06/05/17 20:36 Blood Pressure 143/63 06/05/17 20:36 O2 Sat by Pulse Oximetry (%) 96 06/04/17 20:37 Constitutional: Yes: Well Nourished, No Distress, Calm Eyes: Yes: WNL, Conjunctiva Clear, EOM Intact HENT: Yes: WNL Neck: Yes: Supple Cardiovascular: Yes: Pulse Irregular, S1, S2 Respiratory: Yes: Regular, CTA Bilaterally Gastrointestinal: Yes: Normal Bowel Sounds, Soft Genitourinary: Yes: WNL Musculoskeletal: Yes: Back Pain Extremities: Yes: WNL Edema: No Peripheral Pulses WNL: Yes Integumentary: Yes: WNL Neurological: Yes: Alert, Oriented, Other (speech is slurred.) ...Motor Strength: RUE (power of flexors and extensors of right wrist 3/5) Psychiatric: Yes: Alert, Oriented Labs: CBC, BMP 06/05/17 05:30 06/05/17 05:30 INR, PTT INR 1.08 (0.82-1.09) 06/03/17 16:04 Problem List - Problems (1) CVA (cerebral vascular accident) Code(s): I63.9 - CEREBRAL INFARCTION, UNSPECIFIED Qualifiers: CVA mechanism: unspecified Qualified Code(s): I63.9 - Cerebral infarction, unspecified (2) Cerebral infarct Code(s): I63.9 - CEREBRAL INFARCTION, UNSPECIFIED (3) Diabetes Code(s): E11.9 - TYPE 2 DIABETES MELLITUS WITHOUT COMPLICATIONS (4) Hyperlipidemia Code(s): E78.5 - HYPERLIPIDEMIA, UNSPECIFIED (5) Hypertension Code(s): I10 - ESSENTIAL (PRIMARY) HYPERTENSION (6) Obesity Code(s): E66.9 - OBESITY, UNSPECIFIED (7) Paroxysmal atrial fibrillation Code(s): I48.0 - PAROXYSMAL ATRIAL FIBRILLATION Assessment/Plan IMP: Acute cerebral infarcts small multiple possible embolic AFIB Diabetes Plan: Continue PT Continue anticoagulation Continue to observe
[2017-06-05] MEDS: ROSUVASTATIN CA 20 MG TABLET (FP) PO SCH (22:41)
[2017-06-06 06:28] LABS: MCH 29.4 pg (25.7-33.7); MCHC 32.6 g/dl (32.0-36.0); MEAN CELL VOLUME 90.2 fl (80-96); MEAN PLT VOLUME 8.5 fl (7.5-11.1); PLATELET COUNT 280 K/MM3 (134-434); RDW 14.1 % (11.6-15.6); WHITE BLOOD COUNT 6.7 K/mm3 (4.0-10.0)
[2017-06-06 06:47] LABS: ANION GAP 2 (8-16); CALCIUM 9.1 mg/dL (8.5-10.1); CO2 34 mmol/L (21-32); CREATININE 0.8 mg/dL (0.55-1.02); GLUCOSE,RANDOM 114 mg/dL (74-106); MAGNESIUM 2.1 mg/dL (1.8-2.4); PHOSPHOROUS 3.3 mg/dL (2.5-4.9)
--- NOTE | 2017-06-06 08:03 | PN ---
Progress Note (short form) - Note Progress Note: cLeft parietal and frontal stroke, history of atrial fibrllation HPI 76 year old female history of DM, HTN Hld, atrial fibrillation and two stroke/tia . She came to ed for confusion and speech is being different. she is on pradaxa and crestor for stroke prevention. she is doing ok this morning , neuro symptoms are same. yesterday she had episode of anxiety and she felt her speech was garbaled and she felt weak and it lasted 10-15 minute. she becomes very nervous. Her bp medication has been resarted Past Medical History as above. Neurological Exmination bp 114/61 and pr 61 alert follow command , speech is slurred right sided mild facial palsy there is right pronator drift legs have good strength ( Nuro exam unchanged since yesterday) passed swallow eval CT Head was unremarkable mri of brain showed left frontal and left parietal lobe stroke carotid ultrasound is unremarkable Assessment- Left sided ( frontal lobe) acute ischemic stroke ( facial droopiness, dysarthria and right drift), no change in her exam. She had one episode of speech worsening , seems to be anxiety. Plan-- follow carotid ultrasound report - continue apsirin and crestor and pradaxa - Patient being transferred to floor, agree - continue same treatment. Patient has been stable in last couple of days and work up has been negative , and continue current level of treatment. would see her as needed basis thank you so much, feel free to call me if you have any question Sebastian Harp MD Neurology Attending
[2017-06-06] MEDS ORDERED: PT OWN MED DRAWER 7, Y5N ONE ×2 (08:47→21:58)
[2017-06-06] MEDS: ASPIRIN 81 MG CHEWABLE TABLETS PO SCH (09:04)
[2017-06-06] MEDS: DABIGATRAN ETEXILATE MESYLATE 75 MG CAPSULE PO SCH ×2 (09:05→22:04)
[2017-06-06] MEDS: METOPROLOL TARTRATE 50 MG TABLET (FP) PO SCH ×2 (09:05→22:04)
[2017-06-06] MEDS: VALSARTAN 80 MG TABLET (UD) PO SCH (09:05)
--- NOTE | 2017-06-06 12:21 | PN ---
Progress Note, Physician Chief Complaint: Pt feels better; able to move all extremities; slight slur in speech; no chest pain or dyspnea. History of Present Illness: 76y woman (al Whitman) with PM hx of CVA x 2, CAD--+ stress MIBI 07/17--> coronary angiogram), htn, hyperlipidemia, PAF, DM), presenting with concern for CVA. Pt's son states pt had an episode of confusion when she thought she heard her outside, but didnt see him and became confused. Pt does note that she had an episode of L arm sensory changes and weakness, around lunch time. On arrival pt noted to be hypertensive (reportedly >200 mmHg) with very minimal weakness of LUE. code segura was activated at arrival. Pt was given several antihypertensives; today, while eating lunch, became aphasic; systolic BP was noted to be extremely low. She was transfered to ICU. - Current Medication List Current Medications: Active Medications Aspirin (Asa -) 81 mg PO DAILY [facility] Last Admin: 06/06/17 09:04 Dose: 81 mg Dabigatran (Pradaxa -) 75 mg PO BID [facility] Last Admin: 06/06/17 09:05 Dose: 75 mg Metformin HCl (Glucophage Xr -) 500 mg PO DAILY@0700 [facility] Last Admin: 06/06/17 08:59 Dose: 500 mg Metoprolol Tartrate (Lopressor -) 50 mg PO BID [facility] Last Admin: 06/06/17 09:05 Dose: 50 mg Rosuvastatin Calcium (Crestor -) 20 mg PO HS [facility] Last Admin: 06/05/17 22:41 Dose: 20 mg Valsartan (Diovan -) 80 mg PO DAILY [facility] Last Admin: 06/06/17 09:05 Dose: 80 mg - Objective Vital Signs: Vital Signs Temperature 97.7 F 06/06/17 11:15 Pulse Rate 50 L 06/06/17 11:59 Respiratory Rate 18 06/06/17 11:59 Blood Pressure 139/63 06/06/17 11:59 O2 Sat by Pulse Oximetry (%) 98 06/06/17 08:52 Constitutional: Yes: Calm Eyes: Yes: WNL HENT: Yes: WNL Neck: Yes: WNL Cardiovascular: Yes: Regular Rate and Rhythm Respiratory: Yes: WNL Gastrointestinal: Yes: Soft ...Rectal Exam: Yes: Deferred Genitourinary: No: Anuria Breast(s): Yes: WNL Musculoskeletal: Yes: Other (mild facial droop) Extremities: Yes: WNL Edema: No Peripheral Pulses WNL: Yes Integumentary: Yes: WNL Neurological: Yes: Facial Droop Psychiatric: Yes: WNL Labs: CBC, BMP 06/06/17 05:05 06/06/17 05:05 INR, PTT INR 1.08 (0.82-1.09) 06/03/17 16:04 Abnormal Lab Results 06/06/17 05:05 Carbon Dioxide 34 H Anion Gap 2 L Random Glucose 114 H - ....Imaging Other: Image Reviewed (telemetry: NSR;) Problem List - Problems (1) Anticoagulation management encounter Assessment/Plan: Acute cortical infarcts while on Pradaxa and ASA. Suggest hematologic input into choice of PO anticoagulant going forward. Code(s): Z51.81 - ENCOUNTER FOR THERAPEUTIC DRUG LEVEL MONITORING Z79.01 - USP (CURRENT) USE OF 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 (2) Diabetes Assessment/Plan: On glucaphage; consider adding an SGLT-2 inhibitor because of its potential for lowering cardiac events/mortality. On ARB. 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 TNI < 0.02 x 2. ECHO: normal LVEF; mild-moderate TR; mild MR and IN. TSH WNL. Code(s): I10 - ESSENTIAL (PRIMARY) HYPERTENSION (4) Hyperlipidemia Assessment/Plan: on Crestor 20 mg daily.. Keep LDL cholesterol < 70 mg/dL. TSH WNL. Code(s): E78.5 - HYPERLIPIDEMIA, UNSPECIFIED (5) Paroxysmal atrial fibrillation Assessment/Plan: on metoprolol for HR control. On pradaxa for anticoagulation; may need to change if pt has had "breakthrough" emboli. Code(s): I48.0 - PAROXYSMAL ATRIAL FIBRILLATION
--- NOTE | 2017-06-06 12:31 | PN ---
Teaching Attending Note Name of Resident: Osmar Cohn ATTENDING PHYSICIAN STATEMENT I saw and evaluated the patient. I reviewed the resident's note and discussed the case with the resident. I agree with the resident's findings and plan as documented. SUBJECTIVE: Patient seen and examined in the ICU. Awake and alert. No gross change in Neuro exam. Denies CP or SOB. Tolerating PO intake. BJECTIVE: Intake & Output 06/03/17 06/04/17 06/05/17 06/06/17 23:59 23:59 23:59 23:59 Intake Total 62 500 910 Output Total 500 800 300 Balance 62 0 110 -300 Weight 149 lb 9.6 oz 141 lb 8.588 oz 136 lb 3.931 oz Last Vital Signs Temp Pulse Resp BP Pulse Ox 97.7 F 50 L 18 139/63 98 06/06/17 11:15 06/06/17 11:59 06/06/17 11:59 06/06/17 11:59 06/06/17 08:52 Active Medications Aspirin (Asa -) 81 mg PO DAILY [facility] Last Admin: 06/06/17 09:04 Dose: 81 mg Dabigatran (Pradaxa -) 75 mg PO BID [facility] Last Admin: 06/06/17 09:05 Dose: 75 mg Metformin HCl (Glucophage Xr -) 500 mg PO DAILY@0700 [facility] Last Admin: 06/06/17 08:59 Dose: 500 mg Metoprolol Tartrate (Lopressor -) 50 mg PO BID [facility] Last Admin: 06/06/17 09:05 Dose: 50 mg Rosuvastatin Calcium (Crestor -) 20 mg PO [facility] Last Admin: 06/05/17 22:41 Dose: 20 mg Valsartan (Diovan -) 80 mg PO DAILY [facility] Last Admin: 06/06/17 09:05 Dose: 80 mg Gen: NAD at rest HEENT: slight right facial droop Heart: RRR Lung: decreased breath sounds at the bases Abd: soft, nontender Ext: no edema Neuro: Slight right facial droop, right weakness Laboratory Results - last 24 hr 06/05/17 06/06/17 06/06/17 16:20 05:05 05:05 WBC 6.7 RBC 3.81 Hgb 11.2 Hct 34.3 MCV 90.2 MCH 29.4 MCHC 32.6 RDW 14.1 Plt Count 280 MPV 8.5 Sodium 140 Potassium 4.9 Chloride 104 Carbon Dioxide 34 H Anion Gap 2 L BUN 15 Creatinine 0.8 POC Glucometer 114.06738 Random Glucose 114 H Calcium 9.1 Phosphorus 3.3 Magnesium 2.1 06/06/17 06/06/17 05:53 11:04 WBC RBC Hgb Hct MCV MCH MCHC RDW Plt Count MPV Sodium Potassium Chloride Carbon Dioxide Anion Gap BUN Creatinine POC Glucometer 142.23393 145.53640 Random Glucose Calcium Phosphorus Magnesium ASSESSMENT AND PLAN: Acute CVA History of previous CVA Paroxysmal Atrial Fibrillation HTN DM Hypercholesterolemia - Follow Neuro Exam - Aspiration precautions - rate controlled - Pradaxa for AC - rehab/PT - Telemetry monitoring Dr Hi Total Critical Care Time: 35 Critical Care Statement: The care of this patient involved high complexity decision making to prevent further life threatening deterioration of the patient 's condition and/or to evaluate & treat vital organ system(s) failure or risk of failure.
--- NOTE | 2017-06-06 13:45 | PN ---
Progress Note, Physician History of Present Illness: patient seen and examined at bedside no complaints feels better today - Current Medication List Current Medications: Active Medications Aspirin (Asa -) 81 mg PO DAILY [facility] Last Admin: 06/06/17 09:04 Dose: 81 mg Dabigatran (Pradaxa -) 75 mg PO BID [facility] Last Admin: 06/06/17 09:05 Dose: 75 mg Metformin HCl (Glucophage Xr -) 500 mg PO DAILY@0700 [facility] Last Admin: 06/06/17 08:59 Dose: 500 mg Metoprolol Tartrate (Lopressor -) 50 mg PO BID [facility] Last Admin: 06/06/17 09:05 Dose: 50 mg Rosuvastatin Calcium (Crestor -) 20 mg PO HS [facility] Last Admin: 06/05/17 22:41 Dose: 20 mg Valsartan (Diovan -) 80 mg PO DAILY [facility] Last Admin: 06/06/17 09:05 Dose: 80 mg - Objective Vital Signs: Vital Signs Temperature 97.7 F 06/06/17 11:15 Pulse Rate 50 L 06/06/17 11:59 Respiratory Rate 18 06/06/17 11:59 Blood Pressure 139/63 06/06/17 11:59 O2 Sat by Pulse Oximetry (%) 98 06/06/17 08:52 Constitutional: Yes: Well Nourished, No Distress Eyes: Yes: Conjunctiva Clear, PERRL HENT: Yes: Other (right sided nasolabial fold flattening.) Neck: Yes: Supple, Trachea Midline Cardiovascular: Yes: Pulse Irregular Respiratory: Yes: CTA Bilaterally Gastrointestinal: Yes: Normal Bowel Sounds, Soft, Abdomen, Obese Neurological: Yes: Alert, Oriented, Aphasia, Other (right upper extremity 4/5 strength left 5/5 bilateral lower extremities 5/5 strength) Overall neurological exam unchanged from yesterday Psychiatric: Yes: Alert, Oriented Labs: CBC, BMP 06/06/17 05:05 06/06/17 05:05 INR, PTT INR 1.08 (0.82-1.09) 06/03/17 16:04 Assessment/Plan 76F with extensive PMH presents to the ICU with left sided ischemic stroke. CVA: neurology consult appreciated continue aspirin continue pradaxa BP control Telemetry monitoring speech/swallow consult appreciated carotid ultrasound negative for hemodynamically significant stenosis paroxysmal A fib: continue metoprolol well controlled continue pradaxa continue aspirin DM: continue metformin BGM glucose well controlled HLD: continue crestor HTN: continue metoprolol continue valsartan FEN: no IVF no electrolyte issues diabetic diet PPx: on pradaxa/SCDs no GI PPx indicated PT consult CCTime 35 min pending transfer to telemetry stroke unit
--- NOTE | 2017-06-06 14:41 | PN ---
Progress Note, [employer]USTRIAL [employer]IST - Note Progress Note: Pt on puree and thickened liquids.Diet not yet advanced. Selected Entries 06/05/17 06/05/17 06/05/17 02:00 06:00 09:37 Breakfast 75% Lunch Temperature 98.0 F 98.1 F 06/05/17 06/05/17 06/05/17 10:00 13:16 13:48 Breakfast Lunch 50% Temperature 98.3 F 98.6 F 06/05/17 06/05/17 06/05/17 17:00 19:00 22:00 Breakfast Lunch Temperature 98 F 99.4 F 99.3 F 06/06/17 06/06/17 06/06/17 02:00 06:00 11:06 Breakfast 75% Lunch Temperature 97.7 F 97.6 F 06/06/17 11:15 Breakfast Lunch Temperature 97.7 F Speech/swallow reassessed. Speech improving. Still with oral Apraxia, blowing instead of kissing upon command. Able to correct with visual/tactile cues. Some discoordination with mastication and strraw drinking. No overt signs of difficulty with thin liquids. REC: Dysphagia chopped with thin liquid from a cup. No straws. If difficulty observed, MBS.
[2017-06-06] MEDS: ROSUVASTATIN CA 20 MG TABLET (FP) PO SCH (22:03)
--- NOTE | 2017-06-06 23:38 | PN ---
Progress Note, Physician History of Present Illness: Continues to feel better. Feel her speech is better. Continues to have weakness of right hand and is unable to use right hand to hold th fork to feed herself. - Current Medication List Current Medications: Active Medications Aspirin (Asa -) 81 mg PO DAILY REPLACED BY [facility] Last Admin: 06/06/17 09:04 Dose: 81 mg Dabigatran (Pradaxa -) 75 mg PO BID REPLACED BY [facility] Last Admin: 06/06/17 22:04 Dose: 75 mg Metformin HCl (Glucophage Xr -) 500 mg PO DAILY@0700 REPLACED BY [facility] Last Admin: 06/06/17 08:59 Dose: 500 mg Metoprolol Tartrate (Lopressor -) 50 mg PO BID REPLACED BY [facility] Last Admin: 06/06/17 22:04 Dose: 50 mg Rosuvastatin Calcium (Crestor -) 20 mg PO HS REPLACED BY [facility] Last Admin: 06/06/17 22:03 Dose: 20 mg Valsartan (Diovan -) 80 mg PO DAILY REPLACED BY [facility] Last Admin: 06/06/17 09:05 Dose: 80 mg - Objective Vital Signs: Vital Signs Temperature 98.2 F 06/06/17 22:00 Pulse Rate 62 06/06/17 22:00 Respiratory Rate 18 06/06/17 22:00 Blood Pressure 167/70 06/06/17 22:00 O2 Sat by Pulse Oximetry (%) 98 06/06/17 22:00 Constitutional: Yes: Well Nourished, No Distress, Calm Eyes: Yes: WNL, Conjunctiva Clear HENT: Yes: WNL, Atraumatic Neck: Yes: Supple, Trachea Midline Cardiovascular: Yes: Pulse Irregular, S1, S2 Respiratory: Yes: Regular, CTA Bilaterally Gastrointestinal: Yes: Normal Bowel Sounds, Soft Genitourinary: Yes: WNL Musculoskeletal: Yes: Back Pain Extremities: Yes: WNL Edema: No Peripheral Pulses WNL: Yes Integumentary: Yes: WNL Neurological: Yes: Alert, Oriented, Babinski positive, Dysarthria, Facial Droop , Weakness ...Motor Strength: RUE (weakness of flexors of the right wrist) Psychiatric: Yes: Alert, Oriented Labs: CBC, BMP 06/06/17 05:05 06/06/17 05:05 INR, PTT INR 1.08 (0.82-1.09) 06/03/17 16:04 Problem List - Problems (1) Anticoagulation management encounter Code(s): Z51.81 - ENCOUNTER FOR THERAPEUTIC DRUG LEVEL MONITORING 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 (2) CAD (coronary artery disease) Code(s): I25.10 - ATHSCL HEART DISEASE OF [place] CORONARY ARTERY W/O ANG PCTRS (3) Cerebral infarct Code(s): I63.9 - CEREBRAL INFARCTION, UNSPECIFIED (4) Diabetes Code(s): E11.9 - TYPE 2 DIABETES MELLITUS WITHOUT COMPLICATIONS (5) Hyperlipidemia Code(s): E78.5 - HYPERLIPIDEMIA, UNSPECIFIED (6) Hypertension Code(s): I10 - ESSENTIAL (PRIMARY) HYPERTENSION (7) Obesity Code(s): E66.9 - OBESITY, UNSPECIFIED (8) Paroxysmal atrial fibrillation Code(s): I48.0 - PAROXYSMAL ATRIAL FIBRILLATION Assessment/Plan IMP: Acute left CVA / Hypertension Diabetes Plan: Speech has definitely improved. Continue PT for ambulation Continue anticoagulation Eliquis and Asa 81mg
[2017-06-07] MEDS: ASPIRIN 81 MG CHEWABLE TABLETS PO SCH (09:39)
[2017-06-07] MEDS: METOPROLOL TARTRATE 50 MG TABLET (FP) PO SCH ×2 (09:40→21:35)
[2017-06-07] MEDS: VALSARTAN 80 MG TABLET (UD) PO SCH (09:40)
[2017-06-07] MEDS: DABIGATRAN ETEXILATE MESYLATE 75 MG CAPSULE PO SCH ×2 (09:40→21:35)
--- NOTE | 2017-06-07 13:47 | PN ---
Progress Note, PHOTO GRAPHICS LIBRARIAN - Note Progress Note: Pt woith reported diarrhea and limited appetite. Dislikes chopped food. Speech and swallow improving.Pt would like a sandwich which I believe she can now tolerate. Selected Entries 06/06/17 06/06/17 06/06/17 02:00 06:00 11:06 Breakfast 75% Supper Temperature 97.7 F 97.6 F 06/06/17 06/06/17 06/06/17 11:15 18:00 22:00 Breakfast Supper 0 0 Temperature 97.7 F 98.1 F 98.2 F 06/07/17 06/07/17 06/07/17 02:00 06:00 09:47 Breakfast Supper Temperature 97.5 F L 97.6 F 97.6 F 06/07/17 10:43 Breakfast 75% Supper Temperature Refusing chopped lunch. REC: Trial of dysphagia whole/thin liquids.
[2017-06-07] MEDS ORDERED: LOPERAMIDE HCL 2 MG CAPSULE PO ONE (14:45)
[2017-06-07] MEDS ORDERED: SODIUM CHLORIDE 0.45% 1,000 ML IV SCH (14:45)
--- NOTE | 2017-06-07 15:49 | PN ---
Progress Note, Physician Chief Complaint: Pt alert; c/o stomach ache, ddiarrhea. History of Present Illness: 76y woman (b. Antonette) with PM hx of CVA x 2, CAD--+ stress MIBI 07/17--> coronary angiogram), htn, hyperlipidemia, PAF, DM), presenting with concern for CVA. Pt's son states pt had an episode of confusion when she thought she heard her outside, but didnt see him and became confused. Pt does note that she had an episode of L arm sensory changes and weakness, around lunch time. On arrival pt noted to be hypertensive (reportedly >200 mmHg) with very minimal weakness of LUE. code segura was activated at arrival. Pt was given several antihypertensives; today, while eating lunch, became aphasic; systolic BP was noted to be extremely low. She was transfered to ICU. - Current Medication List Current Medications: Active Medications Aspirin (Asa -) 81 mg PO DAILY [facility] Last Admin: 06/07/17 09:39 Dose: 81 mg Dabigatran (Pradaxa -) 75 mg PO BID [facility] Last Admin: 06/07/17 09:40 Dose: 75 mg Sodium Chloride (1/2 Normal Saline) 1,000 mls @ 100 mls/hr IV ASDIR [facility] Metformin HCl (Glucophage Xr -) 500 mg PO DAILY@0700 [facility] Last Admin: 06/07/17 06:10 Dose: Not Given Metoprolol Tartrate (Lopressor -) 50 mg PO BID [facility] Last Admin: 06/07/17 09:40 Dose: 50 mg Rosuvastatin Calcium (Crestor -) 20 mg PO HS [facility] Last Admin: 06/06/17 22:03 Dose: 20 mg Valsartan (Diovan -) 80 mg PO DAILY [facility] Last Admin: 06/07/17 09:40 Dose: 80 mg - Objective Vital Signs: Vital Signs Temperature 98.6 F 06/07/17 14:36 Pulse Rate 71 06/07/17 14:36 Respiratory Rate 18 06/07/17 14:36 Blood Pressure 156/75 06/07/17 14:36 O2 Sat by Pulse Oximetry (%) 98 06/07/17 09:00 Constitutional: Yes: Calm Eyes: Yes: WNL HENT: Yes: WNL Neck: Yes: WNL Cardiovascular: Yes: Regular Rate and Rhythm Respiratory: Yes: WNL Gastrointestinal: Yes: Soft. No: Tenderness ...Rectal Exam: Yes: Deferred Genitourinary: No: Anuria Breast(s): Yes: WNL Musculoskeletal: Yes: Muscle Weakness Extremities: Yes: Cool Edema: No Peripheral Pulses WNL: Yes Integumentary: Yes: WNL Neurological: Yes: Weakness Psychiatric: Yes: WNL Labs: CBC, BMP 06/06/17 05:05 06/06/17 05:05 INR, PTT INR 1.08 (0.82-1.09) 06/03/17 16:04 Problem List - Problems (1) Anticoagulation management encounter Assessment/Plan: Acute cortical infarcts while on Pradaxa and ASA. Suggest hematologic input into choice of PO anticoagulant going forward. 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 On ARB. Code(s): E11.9 - TYPE 2 DIABETES MELLITUS WITHOUT COMPLICATIONS (3) Hypertension Assessment/Plan: Continue metoprolol for HTN and AF; adjust doses of antihypertensives ( presently metoprolol and valsartan; amlodipine and furosemide held) based on serial BP and HR Noted low-normal BP in early childhood services coordinator hours, elevated at times during the day. TNI < 0.02 x 2. ECHO: normal LVEF; mild-moderate TR; mild MR and FL. TSH WNL. Code(s): I10 - ESSENTIAL (PRIMARY) HYPERTENSION (4) Hyperlipidemia Assessment/Plan: on Crestor 20 mg daily.. Keep LDL cholesterol < 70 mg/dL. TSH WNL. Code(s): E78.5 - HYPERLIPIDEMIA, UNSPECIFIED (5) Paroxysmal atrial fibrillation Assessment/Plan: on metoprolol for HR control. On pradaxa for anticoagulation; may need to change if pt has had "breakthrough" emboli. Code(s): I48.0 - PAROXYSMAL ATRIAL FIBRILLATION
--- NOTE | 2017-06-07 17:20 | PN ---
Progress Note (short form) - Note Progress Note: >>>>>>>>>>>>>>>>>>>>>>> cover for Dr Cates Current Medications Aspirin (Asa -) 81 mg PO DAILY [facility] Last Admin: 06/07/17 09:39 Dose: 81 mg Dabigatran (Pradaxa -) 75 mg PO BID [facility] Last Admin: 06/07/17 09:40 Dose: 75 mg Sodium Chloride (1/2 Normal Saline) 1,000 mls @ 100 mls/hr IV ASDIR [facility] Last Admin: 06/07/17 14:00 Dose: 100 mls/hr Metformin HCl (Glucophage Xr -) 500 mg PO DAILY@0700 [facility] Last Admin: 06/07/17 06:10 Dose: Not Given Metoprolol Tartrate (Lopressor -) 50 mg PO BID [facility] Last Admin: 06/07/17 09:40 Dose: 50 mg Rosuvastatin Calcium (Crestor -) 20 mg PO HS [facility] Last Admin: 06/06/17 22:03 Dose: 20 mg Valsartan (Diovan -) 80 mg PO DAILY [facility] Last Admin: 06/07/17 09:40 Dose: 80 mg Laboratory Results - last 24 hr 06/07/17 06/07/17 06/07/17 05:52 14:05 16:18 POC Glucometer 117 132 76 Vital Signs Temperature 98.2 F 06/07/17 17:14 Pulse Rate 61 06/07/17 17:14 Respiratory Rate 20 06/07/17 17:14 Blood Pressure 169/74 06/07/17 17:14 O2 Sat by Pulse Oximetry (%) 98 06/07/17 09:00 CC; nausea & Loose BMs ````````````````````````` skin--good color eyes--midline oral--no droop lungs--grossly clear heart--rr distant abd--soft, BS +, some non lauren tenderness LLQ ext--no edema neuro--alert; verbal, thoughts seem well organized; no gross RUE deficit ``````````````````````````````````````````` Summ > Diarrhea--cause unclear; effect of Metformin ? will check stool for C Diff; PLAN Prn Imodium > Lt CVA--Rt sided weakness improved; is ambulating but stamina dimnished; may need SNF for short term Rehab > Htn--fluctuates; SBP a bit high but would avoid low BP state following CVA > pATF--on dual a-c agents > feeding diff--on dysphagia diet as per LEARNING AND DEVELOPMENT DIRECTOR > DM--on Metformin; but will now hold due to poor PO intake ~~~~~~~~~~~~~~~~~~~~~~~ dr Ruelas (for Dr cates)
[2017-06-07] MEDS ORDERED: LOPERAMIDE HCL 1 MG/5 ML UNIT DOSE CUP PO PRN (17:27)
[2017-06-07] MEDS ORDERED: DEXTROSE 5%-0.45% SALINE 1,000 ML IV SCH (17:30)
[2017-06-07] MEDS ORDERED: PT OWN MED DRAWER 7, Y5N ONE (21:14)
[2017-06-07] MEDS: ROSUVASTATIN CA 20 MG TABLET (FP) PO SCH (21:35)
[2017-06-08] MEDS ORDERED: ACETAMINOPHEN 325 MG TABLET (FP) PO ONE (02:30)
[2017-06-08] MEDS ORDERED: ALPRAZolam 0.25 MG TABLET PO ONE (02:30)
[2017-06-08 07:24] LABS: MCH 29.5 pg (25.7-33.7); MEAN CELL VOLUME 89.4 fl (80-96); MEAN PLT VOLUME 8.6 fl (7.5-11.1); PLATELET COUNT 248 K/MM3 (134-434); WHITE BLOOD COUNT 6.1 K/mm3 (4.0-10.0)
[2017-06-08] MEDS ORDERED: PT OWN MED DRAWER 7, Y5N ONE ×4 (07:45→22:15)
[2017-06-08 07:49] LABS: ANION GAP 7 (8-16); CALCIUM 8.7 mg/dL (8.5-10.1); CO2 30 mmol/L (21-32); CREATININE 0.8 mg/dL (0.55-1.02); GLUCOSE,RANDOM 120 mg/dL (74-106)
--- NOTE | 2017-06-08 08:53 | PN ---
Progress Note, Physician History of Present Illness: 76y woman (al Whitman) with PM hx of htn, hl, pafib, dm, cva (x2), presenting with concern for cVA. Pt's son states pt had an episode of confusion when she thought she heard her outside, but didnt see him and became confused. Pt does note that she had an episode of L arm sensory changes and weakness, around lunch time. On arrival pt noted to be hypertensive (reportedly >200 mmHg ) with very minimal weakness of LUE. code segura was activated at arrival. Pt was given several antihypertensives; today, while eating lunch, became aphasic; systolic BP was noted to be extremely low. She was transfered to ICU. - Current Medication List Current Medications: Active Medications Aspirin (Asa -) 81 mg PO DAILY [facility] Last Admin: 06/07/17 09:39 Dose: 81 mg Dabigatran (Pradaxa -) 75 mg PO BID [facility] Last Admin: 06/07/17 21:35 Dose: 75 mg Loperamide HCl (Imodium Liquid -) 1 mg PO TID PRN PRN Reason: DIARRHEA Metformin HCl (Glucophage Xr -) 500 mg PO DAILY@0700 [facility] Last Admin: 06/07/17 06:10 Dose: Not Given Metoprolol Tartrate (Lopressor -) 50 mg PO BID [facility] Last Admin: 06/07/17 21:35 Dose: 50 mg Rosuvastatin Calcium (Crestor -) 20 mg PO HS [facility] Last Admin: 06/07/17 21:35 Dose: 20 mg Valsartan (Diovan -) 80 mg PO DAILY [facility] Last Admin: 06/07/17 09:40 Dose: 80 mg - Objective Vital Signs: Vital Signs Temperature 98.1 F 06/08/17 06:00 Pulse Rate 69 06/08/17 06:00 Respiratory Rate 18 06/08/17 06:00 Blood Pressure 150/87 06/08/17 06:00 O2 Sat by Pulse Oximetry (%) 98 06/07/17 22:00 Eyes: Yes: WNL, Conjunctiva Clear, EOM Intact HENT: Yes: WNL, Atraumatic, Normocephalic Neck: Yes: WNL, Supple, Trachea Midline Cardiovascular: Yes: Pulse Irregular, S1, S2 Respiratory: Yes: WNL, Regular, CTA Bilaterally Gastrointestinal: Yes: WNL, Normal Bowel Sounds Genitourinary: Yes: WNL Musculoskeletal: Yes: WNL Extremities: Yes: WNL Edema: No Integumentary: Yes: WNL Neurological: Yes: WNL, Alert, Oriented ...Motor Strength: WNL Psychiatric: Yes: WNL Labs: CBC, BMP 06/08/17 06:20 06/08/17 06:20 INR, PTT INR 1.08 (0.82-1.09) 06/03/17 16:04 Laboratory Tests 06/03/17 06/03/17 06/03/17 16:04 16:10 16:10 WBC 8.7 D RBC 3.75 Hgb 11.0 Hct 33.7 MCV 89.9 MCH 29.2 MCHC 32.5 RDW 14.5 Plt Count 266 D MPV 8.5 Neutrophils % 63.9 D Lymphocytes % 26.7 D Monocytes % 8.1 Eosinophils % 1.0 Basophils % 0.3 INR 1.08 Sodium 139 Potassium 4.6 Chloride 104 Carbon Dioxide 27 Anion Gap 8 BUN 24 H D Creatinine 1.1 H D Creat Clearance w eGFR 48.04 POC Glucometer Random Glucose 120 H Calcium 8.8 Phosphorus Magnesium Total Bilirubin 0.2 D AST 18 ALT 17 Alkaline Phosphatase 87 Creatine Kinase 49 Troponin I < 0.02 Total Protein 7.4 Albumin 3.0 L Triglycerides 133 D Cholesterol 186 Total LDL Cholesterol 121 H HDL Cholesterol 39 L D TSH Urine Color Urine Appearance Urine pH Ur Specific [place] Urine Protein Urine Glucose (UA) Urine Ketones Urine Blood Urine Nitrite Urine Bilirubin Urine Urobilinogen Ur Leukocyte Esterase Urine RBC Urine WBC Ur Epithelial Cells Urine Mucus Blood Type Antibody Screen 06/03/17 06/03/17 06/04/17 16:10 19:50 06:04 WBC RBC Hgb Hct MCV MCH MCHC RDW Plt Count MPV Neutrophils % Lymphocytes % Monocytes % Eosinophils % Basophils % INR Sodium Potassium Chloride Carbon Dioxide Anion Gap BUN Creatinine Creat Clearance w eGFR POC Glucometer 124 Random Glucose Calcium Phosphorus Magnesium Total Bilirubin AST ALT Alkaline Phosphatase Creatine Kinase Troponin I Total Protein Albumin Triglycerides Cholesterol Total LDL Cholesterol HDL Cholesterol TSH Urine Color Colorless Urine Appearance Clear Urine pH 5.0 Ur Specific [place] 1.010 Urine Protein Negative Urine Glucose (UA) Negative Urine Ketones Negative Urine Blood 1+ H Urine Nitrite Negative Urine Bilirubin Negative Urine Urobilinogen Negative Ur Leukocyte Esterase Negative Urine RBC <1 Urine WBC None Ur Epithelial Cells Rare Urine Mucus Rare Blood Type O POSITIVE Antibody Screen Negative 06/04/17 06/04/17 06/04/17 12:38 15:00 17:25 WBC RBC Hgb Hct MCV MCH MCHC RDW Plt Count MPV Neutrophils % Lymphocytes % Monocytes % Eosinophils % Basophils % INR Sodium Potassium Chloride Carbon Dioxide Anion Gap BUN Creatinine Creat Clearance w eGFR POC Glucometer 128 139.24835 Random Glucose Calcium Phosphorus Magnesium Total Bilirubin AST ALT Alkaline Phosphatase Creatine Kinase 36 Troponin I < 0.02 Total Protein Albumin Triglycerides 129 Cholesterol 190 Total LDL Cholesterol 128 H HDL Cholesterol 41 TSH 1.29 D Urine Color Urine Appearance Urine pH Ur Specific [place] Urine Protein Urine Glucose (UA) Urine Ketones Urine Blood Urine Nitrite Urine Bilirubin Urine Urobilinogen Ur Leukocyte Esterase Urine RBC Urine WBC Ur Epithelial Cells Urine Mucus Blood Type Antibody Screen 06/04/17 06/05/17 06/05/17 22:41 05:30 05:30 WBC 7.8 RBC 4.14 Hgb 12.2 D Hct 37.4 MCV 90.2 MCH 29.4 MCHC 32.6 RDW 14.1 Plt Count 299 MPV 8.7 Neutrophils % 55.4 Lymphocytes % 32.5 D Monocytes % 10.4 H Eosinophils % 0.8 Basophils % 0.9 INR Sodium 142 Potassium 5.4 H Chloride 102 Carbon Dioxide 35 H D Anion Gap 5 L BUN 16 D Creatinine 0.8 D Creat Clearance w eGFR POC Glucometer 133.95351 Random Glucose 127 H Calcium 9.2 Phosphorus Magnesium Total Bilirubin AST ALT Alkaline Phosphatase Creatine Kinase Troponin I Total Protein Albumin Triglycerides Cholesterol Total LDL Cholesterol HDL Cholesterol TSH Urine Color Urine Appearance Urine pH Ur Specific [place] Urine Protein Urine Glucose (UA) Urine Ketones Urine Blood Urine Nitrite Urine Bilirubin Urine Urobilinogen Ur Leukocyte Esterase Urine RBC Urine WBC Ur Epithelial Cells Urine Mucus Blood Type Antibody Screen 06/05/17 06/05/17 06/06/17 06:24 16:20 05:05 WBC 6.7 RBC 3.81 Hgb 11.2 Hct 34.3 MCV 90.2 MCH 29.4 MCHC 32.6 RDW 14.1 Plt Count 280 MPV 8.5 Neutrophils % Lymphocytes % Monocytes % Eosinophils % Basophils % INR Sodium Potassium Chloride Carbon Dioxide Anion Gap BUN Creatinine Creat Clearance w eGFR POC Glucometer 141.97642 114.82313 Random Glucose Calcium Phosphorus Magnesium Total Bilirubin AST ALT Alkaline Phosphatase Creatine Kinase Troponin I Total Protein Albumin Triglycerides Cholesterol Total LDL Cholesterol HDL Cholesterol TSH Urine Color Urine Appearance Urine pH Ur Specific [place] Urine Protein Urine Glucose (UA) Urine Ketones Urine Blood Urine Nitrite Urine Bilirubin Urine Urobilinogen Ur Leukocyte Esterase Urine RBC Urine WBC Ur Epithelial Cells Urine Mucus Blood Type Antibody Screen 06/06/17 06/06/17 06/06/17 05:05 05:53 11:04 WBC RBC Hgb Hct MCV MCH MCHC RDW Plt Count MPV Neutrophils % Lymphocytes % Monocytes % Eosinophils % Basophils % INR Sodium 140 Potassium 4.9 Chloride 104 Carbon Dioxide 34 H Anion Gap 2 L BUN 15 Creatinine 0.8 Creat Clearance w eGFR POC Glucometer 142.37919 145.88344 Random Glucose 114 H Calcium 9.1 Phosphorus 3.3 Magnesium 2.1 Total Bilirubin AST ALT Alkaline Phosphatase Creatine Kinase Troponin I Total Protein Albumin Triglycerides Cholesterol Total LDL Cholesterol HDL Cholesterol TSH Urine Color Urine Appearance Urine pH Ur Specific [place] Urine Protein Urine Glucose (UA) Urine Ketones Urine Blood Urine Nitrite Urine Bilirubin Urine Urobilinogen Ur Leukocyte Esterase Urine RBC Urine WBC Ur Epithelial Cells Urine Mucus Blood Type Antibody Screen 06/07/17 06/07/17 06/07/17 05:52 14:05 16:18 WBC RBC Hgb Hct MCV MCH MCHC RDW Plt Count MPV Neutrophils % Lymphocytes % Monocytes % Eosinophils % Basophils % INR Sodium Potassium Chloride Carbon Dioxide Anion Gap BUN Creatinine Creat Clearance w eGFR POC Glucometer 117 132 76 Random Glucose Calcium Phosphorus Magnesium Total Bilirubin AST ALT Alkaline Phosphatase Creatine Kinase Troponin I Total Protein Albumin Triglycerides Cholesterol Total LDL Cholesterol HDL Cholesterol TSH Urine Color Urine Appearance Urine pH Ur Specific [place] Urine Protein Urine Glucose (UA) Urine Ketones Urine Blood Urine Nitrite Urine Bilirubin Urine Urobilinogen Ur Leukocyte Esterase Urine RBC Urine WBC Ur Epithelial Cells Urine Mucus Blood Type Antibody Screen 06/08/17 06/08/17 06:20 06:20 WBC 6.1 RBC 4.02 Hgb 11.8 Hct 35.9 MCV 89.4 MCH 29.5 MCHC 33.0 RDW 14.0 Plt Count 248 MPV 8.6 Neutrophils % Lymphocytes % Monocytes % Eosinophils % Basophils % INR Sodium 142 Potassium 4.2 Chloride 105 Carbon Dioxide 30 Anion Gap 7 L BUN 15 Creatinine 0.8 Creat Clearance w eGFR POC Glucometer Random Glucose 120 H Calcium 8.7 Phosphorus Magnesium Total Bilirubin AST ALT Alkaline Phosphatase Creatine Kinase Troponin I Total Protein Albumin Triglycerides Cholesterol Total LDL Cholesterol HDL Cholesterol TSH Urine Color Urine Appearance Urine pH Ur Specific [place] Urine Protein Urine Glucose (UA) Urine Ketones Urine Blood Urine Nitrite Urine Bilirubin Urine Urobilinogen Ur Leukocyte Esterase Urine RBC Urine WBC Ur Epithelial Cells Urine Mucus Blood Type Antibody Screen Problem List - Problems (1) CVA (cerebral vascular accident) Code(s): I63.9 - CEREBRAL INFARCTION, UNSPECIFIED Qualifiers: CVA mechanism: unspecified Qualified Code(s): I63.9 - Cerebral infarction, unspecified (2) Acute ischemic right middle cerebral artery (MCA) stroke Code(s): I63.511 - CEREB INFRC D/T UNSP OCCLS OR STENOS OF RIGHT MID CEREB ART (3) Anticoagulation management encounter Code(s): Z51.81 - ENCOUNTER FOR THERAPEUTIC DRUG LEVEL MONITORING 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 (4) CAD (coronary artery disease) Code(s): I25.10 - ATHSCL HEART DISEASE OF [place] CORONARY ARTERY W/O ANG PCTRS (5) Cerebral infarct Code(s): I63.9 - CEREBRAL INFARCTION, UNSPECIFIED (6) Diabetes Code(s): E11.9 - TYPE 2 DIABETES MELLITUS WITHOUT COMPLICATIONS (7) Dizziness Code(s): R42 - DIZZINESS AND GIDDINESS (8) Hyperlipidemia Code(s): E78.5 - HYPERLIPIDEMIA, UNSPECIFIED (9) Hypertension Code(s): I10 - ESSENTIAL (PRIMARY) HYPERTENSION (10) Obesity Code(s): E66.9 - OBESITY, UNSPECIFIED (11) Paroxysmal atrial fibrillation Code(s): I48.0 - PAROXYSMAL ATRIAL FIBRILLATION Assessment/Plan Problems (1) Anticoagulation management encounter Assessment/Plan: Pt's son says she has been compliant to medications at home. Continue Pradaxa while awaiting MRI of brain; if (+) for new infarct, would change to IV heparin, and have hematologic input into choice of future PO anticoagulant. 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 On ARB. Code(s): E11.9 - TYPE 2 DIABETES MELLITUS WITHOUT COMPLICATIONS (3) Hypertension Assessment/Plan: Pt was initially admitted with severe HTN, but, within 24 hours, was noted to by hypotensive. increase metoprolol for HTN and AF; adjust doses of antihypertensives based on serial BP and HR. Hold furosemide; f/u Is and Os, BUN/Cr, elecgtrolytes. 1st TNI < 0.02. ECHO for LVEF, valve status, chamber sizes. Code(s): I10 - ESSENTIAL (PRIMARY) HYPERTENSION (4) Hyperlipidemia Assessment/Plan: Statin. Keep LDL cholesterol < 70 mg/dL. F/u TSH. Code(s): E78.5 - HYPERLIPIDEMIA, UNSPECIFIED (5) Paroxysmal atrial fibrillation Assessment/Plan: increase metoprolol for HR control 100 bid On pradaxa for anticoagulation; may need to change if pt has had "breakthrough" emboli. Code(s): I48.0 - PAROXYSMAL ATRIAL FIBRILLATION Assessment/Plan cc time spent perusing chart aevaluating pt, formulating note: 35 minutes.
[2017-06-08] MEDS: METOPROLOL TARTRATE 50 MG TABLET (FP) PO SCH ×2 (09:45→22:21)
[2017-06-08] MEDS: ASPIRIN 81 MG CHEWABLE TABLETS PO SCH (09:45)
[2017-06-08] MEDS: VALSARTAN 80 MG TABLET (UD) PO SCH (09:45)
[2017-06-08] MEDS: BANATROL PLUS POWDER PACKET PO SCH ×2 (09:46→22:19)
[2017-06-08] MEDS: DABIGATRAN ETEXILATE MESYLATE 75 MG CAPSULE PO SCH ×2 (09:49→22:21)
[2017-06-08] MEDS ORDERED: ALPRAZolam 0.25 MG TABLET PO PRN (12:49)
[2017-06-08] MEDS: ROSUVASTATIN CA 20 MG TABLET (FP) PO SCH (22:21)
[2017-06-09 08:19] LABS: ANION GAP 4 (8-16); CALCIUM 8.9 mg/dL (8.5-10.1); CO2 32 mmol/L (21-32); CREATININE 0.8 mg/dL (0.55-1.02); GLUCOSE,RANDOM 114 mg/dL (74-106)
--- NOTE | 2017-06-09 08:38 | PN ---
Progress Note, Physician History of Present Illness: 76y woman (al Whitman) with PM hx of htn, hl, pafib, dm, cva (x2), presenting with concern for cVA. Pt's son states pt had an episode of confusion when she thought she heard her outside, but didnt see him and became confused. Pt does note that she had an episode of L arm sensory changes and weakness, around lunch time. On arrival pt noted to be hypertensive (reportedly >200 mmHg ) with very minimal weakness of LUE. code segura was activated at arrival. Pt was given several antihypertensives; today, while eating lunch, became aphasic; systolic BP was noted to be extremely low. She was transfered to ICU. - Current Medication List Current Medications: Active Medications Acetaminophen (Tylenol -) 650 mg PO Q6H PRN PRN Reason: FEVER OR PAIN Alprazolam (Xanax -) 0.25 mg PO HS PRN PRN Reason: AGITATION Aspirin (Asa -) 81 mg PO DAILY [facility] Last Admin: 06/08/17 09:45 Dose: 81 mg Dabigatran (Pradaxa -) 75 mg PO BID [facility] Last Admin: 06/08/17 22:21 Dose: 75 mg Loperamide HCl (Imodium Liquid -) 1 mg PO TID PRN PRN Reason: DIARRHEA Metformin HCl (Glucophage Xr -) 500 mg PO DAILY@0700 [facility] Last Admin: 06/07/17 06:10 Dose: Not Given Metoprolol Tartrate (Lopressor -) 100 mg PO BID [facility] Last Admin: 06/08/17 22:21 Dose: 100 mg Rosuvastatin Calcium (Crestor -) 20 mg PO HS [facility] Last Admin: 06/08/17 22:21 Dose: 20 mg Valsartan (Diovan -) 80 mg PO DAILY [facility] Last Admin: 06/08/17 09:45 Dose: 80 mg - Objective Vital Signs: Vital Signs Temperature 98.7 F 06/09/17 06:00 Pulse Rate 59 L 06/09/17 06:00 Respiratory Rate 20 06/09/17 06:00 Blood Pressure 147/66 06/09/17 06:00 O2 Sat by Pulse Oximetry (%) 98 06/08/17 21:00 Eyes: Yes: WNL, Conjunctiva Clear, EOM Intact HENT: Yes: WNL, Atraumatic, Normocephalic Neck: Yes: WNL, Supple, Trachea Midline Cardiovascular: Yes: WNL, Regular Rate and Rhythm Respiratory: Yes: WNL, Regular, CTA Bilaterally Gastrointestinal: Yes: WNL, Normal Bowel Sounds Genitourinary: Yes: WNL Musculoskeletal: Yes: WNL Extremities: Yes: WNL Edema: No Integumentary: Yes: WNL Neurological: Yes: WNL, Alert, Oriented ...Motor Strength: WNL Psychiatric: Yes: WNL Labs: CBC, BMP 06/08/17 06:20 06/09/17 06:30 INR, PTT INR 1.08 (0.82-1.09) 06/03/17 16:04 Problem List - Problems (1) CVA (cerebral vascular accident) Code(s): I63.9 - CEREBRAL INFARCTION, UNSPECIFIED Qualifiers: CVA mechanism: unspecified Qualified Code(s): I63.9 - Cerebral infarction, unspecified (2) Acute ischemic right middle cerebral artery (MCA) stroke Code(s): I63.511 - CEREB INFRC D/T UNSP OCCLS OR STENOS OF RIGHT MID CEREB ART (3) Anticoagulation management encounter Code(s): Z51.81 - ENCOUNTER FOR THERAPEUTIC DRUG LEVEL MONITORING Z79.01 - ENTERPRISE RECORDS ANALYST (CURRENT) USE OF 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 (4) CAD (coronary artery disease) Code(s): I25.10 - ATHSCL HEART DISEASE OF [place] CORONARY ARTERY W/O ANG PCTRS (5) Cerebral infarct Code(s): I63.9 - CEREBRAL INFARCTION, UNSPECIFIED (6) Diabetes Code(s): E11.9 - TYPE 2 DIABETES MELLITUS WITHOUT COMPLICATIONS (7) Dizziness Code(s): R42 - DIZZINESS AND GIDDINESS (8) Hyperlipidemia Code(s): E78.5 - HYPERLIPIDEMIA, UNSPECIFIED (9) Hypertension Code(s): I10 - ESSENTIAL (PRIMARY) HYPERTENSION (10) Obesity Code(s): E66.9 - OBESITY, UNSPECIFIED (11) Paroxysmal atrial fibrillation Code(s): I48.0 - PAROXYSMAL ATRIAL FIBRILLATION Assessment/Plan Problems (1) Anticoagulation management encounter Assessment/Plan: Continue Pradaxa while awaiting MRI of brain; if (+) for new infarct, would change to IV heparin, and have hematologic input into choice of future PO anticoagulant. Code(s): Z51.81 - ENCOUNTER FOR THERAPEUTIC DRUG LEVEL MONITORING Z79.01 - INTERMEDIATE (CURRENT) USE OF 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 (2) Diabetes Assessment/Plan: On glucaphage; consider adding an SGLT-2 inhibitor because of its potential for lowering cardiac events/mortality. On ARB. Code(s): E11.9 - TYPE 2 DIABETES MELLITUS WITHOUT COMPLICATIONS (3) Hypertension Assessment/Plan: Pt was initially admitted with severe HTN, but, within 24 hours, was noted to by hypotensive. increase metoprolol for HTN and AF; adjust doses of antihypertensives based on serial BP and HR. Hold furosemide; f/u Is and Os, BUN/Cr, elecgtrolytes. 1st TNI < 0.02. ECHO for LVEF, valve status, chamber sizes. Code(s): I10 - ESSENTIAL (PRIMARY) HYPERTENSION (4) Hyperlipidemia Assessment/Plan: Statin. Keep LDL cholesterol < 70 mg/dL. F/u TSH. Code(s): E78.5 - HYPERLIPIDEMIA, UNSPECIFIED (5) Paroxysmal atrial fibrillation Assessment/Plan: increase metoprolol for HR control 100 bid On pradaxa for anticoagulation; may need to change if pt has had "breakthrough" emboli. Code(s): I48.0 - PAROXYSMAL ATRIAL FIBRILLATION
[2017-06-09] MEDS ORDERED: PT OWN MED DRAWER 7, Y5N ONE ×2 (09:48→21:14)
[2017-06-09] MEDS: BANATROL PLUS POWDER PACKET PO SCH ×2 (09:56→21:33)
[2017-06-09] MEDS: DABIGATRAN ETEXILATE MESYLATE 75 MG CAPSULE PO SCH ×2 (09:56→21:32)
[2017-06-09] MEDS: ASPIRIN 81 MG CHEWABLE TABLETS PO SCH (09:56)
[2017-06-09] MEDS: VALSARTAN 80 MG TABLET (UD) PO SCH (09:56)
[2017-06-09] MEDS: METOPROLOL TARTRATE 50 MG TABLET (FP) PO SCH ×2 (09:56→21:32)
[2017-06-09] MEDS: ROSUVASTATIN CA 20 MG TABLET (FP) PO SCH (21:32)
[2017-06-09] MEDS: ACETAMINOPHEN 325 MG TABLET (FP) PO PRN (21:32)
--- NOTE | 2017-06-09 23:44 | PN ---
Progress Note, Physician History of Present Illness: Feels better with better speech control. while walking with PT therapist with walker suddenly felt as if right leg buckeled and was not able to continue to walk. - Current Medication List Current Medications: Active Medications Acetaminophen (Tylenol -) 650 mg PO Q6H PRN PRN Reason: FEVER OR PAIN Last Admin: 06/09/17 21:32 Dose: 650 mg Alprazolam (Xanax -) 0.25 mg PO HS PRN PRN Reason: AGITATION Aspirin (Asa -) 81 mg PO DAILY [facility] Last Admin: 06/09/17 09:56 Dose: 81 mg Dabigatran (Pradaxa -) 75 mg PO BID [facility] Last Admin: 06/09/17 21:32 Dose: 75 mg Loperamide HCl (Imodium Liquid -) 1 mg PO TID PRN PRN Reason: DIARRHEA Metformin HCl (Glucophage Xr -) 500 mg PO DAILY@0700 [facility] Last Admin: 06/07/17 06:10 Dose: Not Given Metoprolol Tartrate (Lopressor -) 100 mg PO BID [facility] Last Admin: 06/09/17 21:32 Dose: 100 mg Rosuvastatin Calcium (Crestor -) 20 mg PO HS [facility] Last Admin: 06/09/17 21:32 Dose: 20 mg Valsartan (Diovan -) 80 mg PO DAILY [facility] Last Admin: 06/09/17 09:56 Dose: 80 mg - Objective Vital Signs: Vital Signs Temperature 99 F 06/09/17 22:00 Pulse Rate 60 06/09/17 22:00 Respiratory Rate 18 06/09/17 22:00 Blood Pressure 146/60 06/09/17 22:00 O2 Sat by Pulse Oximetry (%) 98 06/09/17 21:00 Constitutional: Yes: Well Nourished, No Distress, Calm Eyes: Yes: WNL, Conjunctiva Clear, EOM Intact HENT: Yes: WNL Neck: Yes: Supple Cardiovascular: Yes: Pulse Irregular, S1, S2 Respiratory: Yes: Regular, CTA Bilaterally Gastrointestinal: Yes: Normal Bowel Sounds, Soft Genitourinary: Yes: WNL Musculoskeletal: Yes: Back Pain Extremities: Yes: WNL Edema: No Peripheral Pulses WNL: Yes Integumentary: Yes: WNL Neurological: Yes: Alert, Oriented, Facial Droop, Paresthesia ...Motor Strength: RUE (Flexors and extensors of right hand . power has improved to 4/5), RLE (power of flexors and extensors of right ankle 4/5) Labs: CBC, BMP 06/08/17 06:20 06/09/17 06:30 INR, PTT INR 1.08 (0.82-1.09) 06/03/17 16:04 Problem List - Problems (1) Anticoagulation management encounter Code(s): Z51.81 - ENCOUNTER FOR THERAPEUTIC DRUG LEVEL MONITORING Z79.01 - COMMUNITY RELATIONS REPRESENTATIVE (CURRENT) USE OF 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 (2) CAD (coronary artery disease) Assessment/Plan: No chest pain or SOB but continues to be AFIB Code(s): I25.10 - ATHSCL HEART DISEASE OF [place] CORONARY ARTERY W/O ANG PCTRS (3) Cerebral infarct Assessment/Plan: Continues to improve with speech much improved as well as power in right hand and right leg Code(s): I63.9 - CEREBRAL INFARCTION, UNSPECIFIED (4) Diabetes Code(s): E11.9 - TYPE 2 DIABETES MELLITUS WITHOUT COMPLICATIONS (5) Hyperlipidemia Code(s): E78.5 - HYPERLIPIDEMIA, UNSPECIFIED (6) Hypertension Code(s): I10 - ESSENTIAL (PRIMARY) HYPERTENSION (7) Obesity Code(s): E66.9 - OBESITY, UNSPECIFIED (8) Paroxysmal atrial fibrillation Code(s): I48.0 - PAROXYSMAL ATRIAL FIBRILLATION Assessment/Plan IMP: Acute CVA AFIB Hypertension Diabetes Plan: Continue PT as patient unstable walking. Continue anticoagulation with Pradaxa and Aspirin.
[2017-06-10] MEDS ORDERED: PT OWN MED DRAWER 7, Y5N ONE ×3 (09:54→21:32)
[2017-06-10] MEDS: METOPROLOL TARTRATE 50 MG TABLET (FP) PO SCH ×2 (10:02→22:17)
[2017-06-10] MEDS: VALSARTAN 80 MG TABLET (UD) PO SCH (10:02)
[2017-06-10] MEDS: ASPIRIN 81 MG CHEWABLE TABLETS PO SCH (10:02)
[2017-06-10] MEDS: BANATROL PLUS POWDER PACKET PO SCH ×2 (10:03→22:17)
[2017-06-10] MEDS: DABIGATRAN ETEXILATE MESYLATE 75 MG CAPSULE PO SCH ×2 (10:04→22:17)
--- NOTE | 2017-06-10 11:08 | PN ---
Progress Note, PIPING SUPERVISOR - Note Progress Note: Selected Entries 06/08/17 06/08/17 06/09/17 13:54 22:11 03:31 Breakfast 75% Lunch 75% Supper 75% Temperature 98.2 F 06/09/17 06/09/17 06/09/17 06:00 10:00 14:00 Breakfast Lunch Supper Temperature 98.7 F 98.2 F 98.4 F 06/09/17 06/09/17 06/09/17 18:34 22:00 22:59 Breakfast Lunch Supper 100% Temperature 98.2 F 99 F 06/10/17 06/10/17 06/10/17 01:58 06:00 09:58 Breakfast Lunch Supper Temperature 97.8 F 98.5 F 98.2 F Laboratory Tests 06/08/17 06:20 WBC 6.1 Dys whole/thin liquids ordered. Per RD Plan: Provide nectar thick liquids tonight (per pt's request). Monitor for speech and swallow evaluation follow-up. Provide Ensure pudding and Magic cup. Provided diet education regarding dysphagia whole diet. Swallowing reassessed. Overtly, pt is tolerating thin liquid withouit signs or symptoms of Dysphagia. OPresently, pt is receiving thick and thin liquids on tray. Dys whole/thin liquids ordered. RD sending nectar per pt requset. Suggest all thin liquids. If any difficulty reported or observed, MBS to r/o silent aspiration.Reviewed with staff. iet
--- NOTE | 2017-06-10 11:33 | PN ---
Progress Note, Physician History of Present Illness: 76y woman (al Whitman) with PM hx of htn, hl, pafib, dm, cva (x2), presenting with concern for cVA. Pt's son states pt had an episode of confusion when she thought she heard her outside, but didnt see him and became confused. Pt does note that she had an episode of L arm sensory changes and weakness, around lunch time. On arrival pt noted to be hypertensive (reportedly >200 mmHg ) with very minimal weakness of LUE. code segura was activated at arrival. Pt was given several antihypertensives; today, while eating lunch, became aphasic; systolic BP was noted to be extremely low. She was transfered to ICU. - Current Medication List Current Medications: Active Medications Acetaminophen (Tylenol -) 650 mg PO Q6H PRN PRN Reason: FEVER OR PAIN Last Admin: 06/09/17 21:32 Dose: 650 mg Alprazolam (Xanax -) 0.25 mg PO HS PRN PRN Reason: AGITATION Aspirin (Asa -) 81 mg PO DAILY [facility] Last Admin: 06/10/17 10:02 Dose: 81 mg Dabigatran (Pradaxa -) 75 mg PO BID [facility] Last Admin: 06/10/17 10:04 Dose: 75 mg Loperamide HCl (Imodium Liquid -) 1 mg PO TID PRN PRN Reason: DIARRHEA Metformin HCl (Glucophage Xr -) 500 mg PO DAILY@0700 [facility] Last Admin: 06/07/17 06:10 Dose: Not Given Metoprolol Tartrate (Lopressor -) 100 mg PO BID [facility] Last Admin: 06/10/17 10:02 Dose: 100 mg Rosuvastatin Calcium (Crestor -) 20 mg PO HS [facility] Last Admin: 06/09/17 21:32 Dose: 20 mg Valsartan (Diovan -) 80 mg PO DAILY [facility] Last Admin: 06/10/17 10:02 Dose: 80 mg - Objective Vital Signs: Vital Signs Temperature 98.2 F 06/10/17 09:58 Pulse Rate 53 L 06/10/17 09:58 Respiratory Rate 06/10/17 09:58 Blood Pressure 168/60 06/10/17 09:58 O2 Sat by Pulse Oximetry (%) 98 06/09/17 21:00 Eyes: Yes: WNL, Conjunctiva Clear, EOM Intact HENT: Yes: WNL, Atraumatic, Normocephalic Neck: Yes: WNL, Supple, Trachea Midline Cardiovascular: Yes: WNL, Regular Rate and Rhythm Respiratory: Yes: WNL, Regular, CTA Bilaterally Gastrointestinal: Yes: WNL, Normal Bowel Sounds Genitourinary: Yes: WNL Musculoskeletal: Yes: WNL Extremities: Yes: WNL Edema: No Integumentary: Yes: WNL Neurological: Yes: WNL, Alert, Oriented ...Motor Strength: WNL Psychiatric: Yes: WNL Labs: CBC, BMP 06/08/17 06:20 06/09/17 06:30 INR, PTT INR 1.08 (0.82-1.09) 06/03/17 16:04 Problem List - Problems (1) CVA (cerebral vascular accident) Code(s): I63.9 - CEREBRAL INFARCTION, UNSPECIFIED Qualifiers: CVA mechanism: unspecified Qualified Code(s): I63.9 - Cerebral infarction, unspecified (2) Acute ischemic right middle cerebral artery (MCA) stroke Code(s): I63.511 - CEREB INFRC D/T UNSP OCCLS OR STENOS OF RIGHT MID CEREB ART (3) Anticoagulation management encounter Code(s): Z51.81 - ENCOUNTER FOR THERAPEUTIC DRUG LEVEL MONITORING Z79.01 - INTERVENTIONAL SALE CONSULTANT (CURRENT) USE OF 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 (4) CAD (coronary artery disease) Code(s): I25.10 - ATHSCL HEART DISEASE OF [place] CORONARY ARTERY W/O ANG PCTRS (5) Cerebral infarct Code(s): I63.9 - CEREBRAL INFARCTION, UNSPECIFIED (6) Diabetes Code(s): E11.9 - TYPE 2 DIABETES MELLITUS WITHOUT COMPLICATIONS (7) Dizziness Code(s): R42 - DIZZINESS AND GIDDINESS (8) Hyperlipidemia Code(s): E78.5 - HYPERLIPIDEMIA, UNSPECIFIED (9) Hypertension Code(s): I10 - ESSENTIAL (PRIMARY) HYPERTENSION (10) Obesity Code(s): E66.9 - OBESITY, UNSPECIFIED (11) Paroxysmal atrial fibrillation Code(s): I48.0 - PAROXYSMAL ATRIAL FIBRILLATION Assessment/Plan Problems (1) Anticoagulation management encounter Assessment/Plan: Continue Pradaxa Code(s): Z51.81 - ENCOUNTER FOR THERAPEUTIC DRUG LEVEL MONITORING Z79.01 - ASSISTED (CURRENT) USE OF 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 (2) Diabetes Assessment/Plan: On glucaphage; consider adding an SGLT-2 inhibitor because of its potential for lowering cardiac events/mortality. On ARB. Code(s): E11.9 - TYPE 2 DIABETES MELLITUS WITHOUT COMPLICATIONS (3) Hypertension Assessment/Plan: bp not well controlled add norvasc 2.5 qd Code(s): I10 - ESSENTIAL (PRIMARY) HYPERTENSION (4) Hyperlipidemia Assessment/Plan: Statin. Keep LDL cholesterol < 70 mg/dL. F/u TSH. Code(s): E78.5 - HYPERLIPIDEMIA, UNSPECIFIED (5) Paroxysmal atrial fibrillation Assessment/Plan: increase metoprolol for HR control 100 bid On pradaxa for anticoagulation; may need to change if pt has had "breakthrough" emboli. Code(s): I48.0 - PAROXYSMAL ATRIAL FIBRILLATION
--- NOTE | 2017-06-10 15:59 | DS ---
Physical Examination Vital Signs: Vital Signs Temperature 98.1 F 06/10/17 13:00 Pulse Rate 63 06/10/17 13:00 Respiratory Rate 18 06/10/17 13:00 Blood Pressure 133/61 06/10/17 13:00 O2 Sat by Pulse Oximetry (%) 98 06/09/17 21:00 Constitutional: Yes: Well Nourished, No Distress Eyes: Yes: Conjunctiva Clear, EOM Intact Neck: Yes: Supple Cardiovascular: Yes: Regular Rate and Rhythm Gastrointestinal: Yes: Normal Bowel Sounds, Soft Extremities: Yes: WNL Edema: No Integumentary: Yes: WNL Neurological: Yes: Unsteady Gait (Rt sided weakness--minimal) Psychiatric: Yes: Alert, Oriented Labs: CBC, BMP 06/08/17 06:20 06/09/17 06:30 Discharge Summary Reason For Visit: CVA (NON CARDIAC TELE) Current Active Problems CVA Lt hemisphere(cerebral vascular accident) (Acute) HTN DM pATF Dysphagia diarrhea headfache anxiety past Hx of CVA high ESR Hx of positive Rheumatoid Factor Hospital Course: admitted for sudden Rt sided weakness; 2nd acute CVA (one of several she has had ); Seen by Cardiology & neuro; MRI showeed multiple cortical infarcts; she was stabilized by meds adjustment; she underwent in house PT and regained some strenght to the extent that she was ambulating under supervision. She had brief bout of loose BM; C diff was negative; BP with some fluctuation; HR was alternating ATF and then NSR. ESR was found to be a bit high but was informed by PCP that she may have active RA; she denies any ongoing headaches. Condition: Improved - Instructions Diet, Activity, Other Instructions: low sallt diet; no added sugars Dysphagia whole with thin liquids PT evaluation Speech therapy eval Finger stick sugars twice a day before meals; stop Metformin if sugar under 70 adjust Valsartan dose if SBP over 150 check CBC & Chemistry; lipids Referrals: Yordy Dobson MD [Primary Care Provider] - Disposition: [facility] - Home Medications Comprehensive Discharge Medication List: Ambulatory Orders Acetaminophen [Tylenol .Regular Strength -] 650 mg PO Q6H PRN #0 tablet Alprazolam [Xanax] 0.25 mg PO HS PRN #10 tablet MDD 1 06/10/17 Aspirin [ASA -] 81 mg PO DAILY tab.chew 06/10/17 Dabigatran Etexilate Mesylate [Pradaxa -] 75 mg PO BID #60 tab 06/10/17 Loperamide HCl Liquid [Imodium Liquid -] 1 mg PO TID PRN #0 tab MDD 3 06/10/17 Metformin Xr [Glucophage Xr -] 500 mg PO DAILY@0700 #30 tab.sr MDD 1 06/10/17 Metoprolol Tartrate [Lopressor -] 100 mg PO BID tablet 06/10/17 Rosuvastatin [Crestor -] 20 mg PO HS tablet 06/10/17 Valsartan [Diovan] 80 mg PO DAILY tablet 06/10/17
[2017-06-10] MEDS: ROSUVASTATIN CA 20 MG TABLET (FP) PO SCH (22:17)
[2017-06-11] MEDS: VALSARTAN 80 MG TABLET (UD) PO SCH (07:33)
[2017-06-11] MEDS ORDERED: VALSARTAN 80 MG TABLET (UD) PO ONE ×2 (07:45→10:00)
[2017-06-11] MEDS ORDERED: PT OWN MED DRAWER 7, Y5N ONE ×2 (10:35→20:09)
[2017-06-11] MEDS: BANATROL PLUS POWDER PACKET PO SCH ×2 (10:36→21:09)
[2017-06-11] MEDS: METOPROLOL TARTRATE 50 MG TABLET (FP) PO SCH ×2 (10:41→21:09)
[2017-06-11] MEDS: DABIGATRAN ETEXILATE MESYLATE 75 MG CAPSULE PO SCH ×2 (10:41→21:09)
[2017-06-11] MEDS: ASPIRIN 81 MG CHEWABLE TABLETS PO SCH (10:41)
--- NOTE | 2017-06-11 12:22 | PN ---
Progress Note, INSULATION CUTTER AND FORMER - Note Progress Note: Pt tolerating thin liquid well without signs or symptoms of aspiration. Pending transfer to [facility].
--- NOTE | 2017-06-11 20:57 | PN ---
Progress Note, Physician History of Present Illness: &[age] y/o with left CVA with right hemiplegia has continued to improve with improvement in speech, in recovery of the power of right hand , but continues to have weakness of her right lower extremity with difficulty walking. - Current Medication List Current Medications: Active Medications Acetaminophen (Tylenol -) 650 mg PO Q6H PRN PRN Reason: FEVER OR PAIN Last Admin: 06/09/17 21:32 Dose: 650 mg Alprazolam (Xanax -) 0.25 mg PO HS PRN PRN Reason: AGITATION Aspirin (Asa -) 81 mg PO DAILY [facility] Last Admin: 06/11/17 10:41 Dose: 81 mg Dabigatran (Pradaxa -) 75 mg PO BID [facility] Last Admin: 06/11/17 10:41 Dose: 75 mg Loperamide HCl (Imodium Liquid -) 1 mg PO TID PRN PRN Reason: DIARRHEA Metformin HCl (Glucophage Xr -) 500 mg PO DAILY@0700 [facility] Last Admin: 06/11/17 06:31 Dose: 500 mg Metoprolol Tartrate (Lopressor -) 100 mg PO DAILY [facility] Metoprolol Tartrate (Lopressor -) 50 mg PO HS [facility] Rosuvastatin Calcium (Crestor -) 20 mg PO HS [facility] Last Admin: 06/10/17 22:17 Dose: 20 mg Valsartan (Diovan -) 160 mg PO DAILY [facility] - Objective Vital Signs: Vital Signs Temperature 98.6 F 06/11/17 18:00 Pulse Rate 49 L 06/11/17 18:00 Respiratory Rate 18 06/11/17 18:00 Blood Pressure 118/55 06/11/17 18:00 O2 Sat by Pulse Oximetry (%) 95 06/11/17 10:30 Constitutional: Yes: Well Nourished, No Distress, Calm Eyes: Yes: WNL, Conjunctiva Clear, EOM Intact HENT: Yes: WNL Neck: Yes: Supple Cardiovascular: Yes: Regular Rate and Rhythm, S1, S2 Respiratory: Yes: Regular, CTA Bilaterally Gastrointestinal: Yes: Normal Bowel Sounds, Soft Genitourinary: Yes: WNL Musculoskeletal: Yes: Back Pain Extremities: Yes: WNL Edema: No Peripheral Pulses WNL: Yes Integumentary: Yes: WNL Neurological: Yes: Alert, Oriented, Facial Droop, Paresthesia, Unsteady Gait, Weakness ...Motor Strength: RUE (power of flexors and extensors is normal), RLE (power of flexors and extensors is 4/5) Psychiatric: Yes: Alert, Oriented Labs: CBC, BMP 06/08/17 06:20 06/09/17 06:30 INR, PTT INR 1.08 (0.82-1.09) 06/03/17 16:04 Problem List - Problems (1) Anticoagulation management encounter Code(s): Z51.81 - ENCOUNTER FOR THERAPEUTIC DRUG LEVEL MONITORING Z79.01 - CLINIC SUPERVISOR (CURRENT) USE OF 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 (2) CAD (coronary artery disease) Assessment/Plan: Now in SR and occasional episodes of AFIB with fast VR Code(s): I25.10 - ATHSCL HEART DISEASE OF [place] CORONARY ARTERY W/O ANG PCTRS (3) Cerebral infarct Assessment/Plan: No further progression Code(s): I63.9 - CEREBRAL INFARCTION, UNSPECIFIED (4) Diabetes Assessment/Plan: Under good control with Metformin 500mg Code(s): E11.9 - TYPE 2 DIABETES MELLITUS WITHOUT COMPLICATIONS (5) Hyperlipidemia Code(s): E78.5 - HYPERLIPIDEMIA, UNSPECIFIED (6) Hypertension Assessment/Plan: Has episodes when BP went up to 180 systolic and dose of Valsartan increased to 160mg Code(s): I10 - ESSENTIAL (PRIMARY) HYPERTENSION (7) Obesity Code(s): E66.9 - OBESITY, UNSPECIFIED (8) Paroxysmal atrial fibrillation Assessment/Plan: Rate controlled with Metoprolol 100mg BID but the dose at PM decreased to 50mg due to bradycardia. Code(s): I48.0 - PAROXYSMAL ATRIAL FIBRILLATION Assessment/Plan IMP: Left CVA with right hemiplegia Hypertension Diabetes Hyperlipidemia Paroxysmal AFIB Assess: Continues to improve from hemiplegia and being transferred to [place] [facility] for intensive PT. BP un shelia good control with Valsartan and Metoprolol AFIB under good control with Metoprolol
[2017-06-11] MEDS: ROSUVASTATIN CA 20 MG TABLET (FP) PO SCH (21:09)
[2017-06-12] MEDS: VALSARTAN 160 MG TABLET (UD) PO SCH (10:18)
[2017-06-12] MEDS: DABIGATRAN ETEXILATE MESYLATE 75 MG CAPSULE PO SCH ×2 (10:18→21:13)
[2017-06-12] MEDS: METOPROLOL TARTRATE 50 MG TABLET (FP) PO SCH ×2 (10:18→21:13)
[2017-06-12] MEDS: ASPIRIN 81 MG CHEWABLE TABLETS PO SCH (10:18)
[2017-06-12] MEDS: BANATROL PLUS POWDER PACKET PO SCH ×2 (10:18→21:13)
--- NOTE | 2017-06-12 10:42 | PN ---
Progress Note, SHUTTLE FILLER - Note Progress Note: Voice continues to get stronger. Verbalizing with greater articulatory precision. Pt tolerating thin liquid well without signs or symptoms of aspiration. May still be receiving thick liquid? Call placed to dietary to advance to all thin liquids, per MD order and to observe tolerance. [facility].
--- NOTE | 2017-06-12 15:00 | PN ---
Progress Note (short form) - Note Progress Note: ^^^^^^^^^^^^^^^ cover for Dr Dobson Current Medications Acetaminophen (Tylenol -) 650 mg PO Q6H PRN PRN Reason: FEVER OR PAIN Last Admin: 06/09/17 21:32 Dose: 650 mg Alprazolam (Xanax -) 0.25 mg PO HS PRN PRN Reason: AGITATION Aspirin (Asa -) 81 mg PO DAILY [facility] Last Admin: 06/12/17 10:18 Dose: 81 mg Dabigatran (Pradaxa -) 75 mg PO BID [facility] Last Admin: 06/12/17 10:18 Dose: 75 mg Loperamide HCl (Imodium Liquid -) 1 mg PO TID PRN PRN Reason: DIARRHEA Metformin HCl (Glucophage Xr -) 500 mg PO DAILY@0700 [facility] Last Admin: 06/12/17 06:45 Dose: 500 mg Metoprolol Tartrate (Lopressor -) 100 mg PO DAILY [facility] Last Admin: 06/12/17 10:18 Dose: 100 mg Metoprolol Tartrate (Lopressor -) 50 mg PO HS [facility] Last Admin: 06/11/17 21:09 Dose: 50 mg Rosuvastatin Calcium (Crestor -) 20 mg PO HS [facility] Last Admin: 06/11/17 21:09 Dose: 20 mg Valsartan (Diovan -) 160 mg PO DAILY [facility] Last Admin: 06/12/17 10:18 Dose: 160 mg Laboratory Results - last 24 hr 06/11/17 06/12/17 17:32 05:57 POC Glucometer 97 104 Vital Signs Temperature 97.9 F 06/12/17 10:00 Pulse Rate 59 L 06/12/17 10:00 Respiratory Rate 18 06/12/17 10:00 Blood Pressure 147/55 06/12/17 10:00 O2 Sat by Pulse Oximetry (%) 94 L 06/12/17 09:00 CC: feels a bit better ```````````````````` skin--good color heart--RR lungs--clear ext--no edema neuro--speech is fluent; mild Rt HIp ; RLE > RUE `````````````````````````` Summ (see d-c summary) > Lt CVA--will need further rehab for maximal recovery; cont current agents > Htn--bp better controlled on higher dose of valsartan > DM--on Metformin; BGMs okay > anxiety--stable; xanax Prn ~~~~~~~~~~~~~~~~~~~~~ Dr Ruelas
[2017-06-12] MEDS ORDERED: PT OWN MED DRAWER 7, Y5N ONE (20:33)
[2017-06-12] MEDS: ROSUVASTATIN CA 20 MG TABLET (FP) PO SCH (21:13)
[2017-06-13] MEDS ORDERED: PT OWN MED DRAWER 7, Y5N ONE (08:53)
[2017-06-13] MEDS: METOPROLOL TARTRATE 50 MG TABLET (FP) PO SCH (09:02)
[2017-06-13] MEDS: ACETAMINOPHEN 325 MG TABLET (FP) PO PRN (09:02)
[2017-06-13] MEDS: ASPIRIN 81 MG CHEWABLE TABLETS PO SCH (09:02)
[2017-06-13] MEDS: VALSARTAN 160 MG TABLET (UD) PO SCH (09:02)
[2017-06-13] MEDS: BANATROL PLUS POWDER PACKET PO SCH (09:04)
[2017-06-13] MEDS: DABIGATRAN ETEXILATE MESYLATE 75 MG CAPSULE PO SCH (09:04)
[2017-06-13 14:37] VITALS: BP 126/63; PULSE 88; TEMP 98.7
== END 2017-06-13 17:40 | disposition home health service (06) | DRG 65 ==
LOC: JER 15:52 → JERBED 18:50 → J4S 20:34 → J2W 06-04 13:16 → JICU 06-04 14:58 → J4S 06-06 16:32
PROVIDERS: ADMIT Internal Medicine Hematology & Oncology; ATTEND Internal Medicine Hematology & Oncology
DX: I63.9 Cerebral infarction, unspecified (principal); G81.91 Hemiplegia, unspecified affecting right dominant side; I69.354 Hemiplegia and hemiparesis following cerebral infarction affecting left non-dominant side; I69.390 Apraxia following cerebral infarction; E11.9 Type 2 diabetes mellitus without complications; I10 Essential (primary) hypertension; E78.00 Pure hypercholesterolemia, unspecified; I48.0 Paroxysmal atrial fibrillation; Z79.01 Long term (current) use of anticoagulants; I69.320 Aphasia following cerebral infarction; I25.10 Atherosclerotic heart disease of native coronary artery without angina pectoris; Z79.84 Long term (current) use of oral hypoglycemic drugs; R19.7 Diarrhea, unspecified; E66.9 Obesity, unspecified; Z68.27 Body mass index [BMI] 27.0-27.9, adult; F41.9 Anxiety disorder, unspecified
CPT/HCPCS: 36415; 70450-TC; 70551-TC; 71010-TC; 80048; 80053; 80061; 81003; 81015; 82465; 83718; 83721; 83735; 84100; 84443; 84478; 84484; 85025; 85027; 85610; 85651; 86850; 86900; 86901; 87324; 87449; 93005; 93010; 93880-TC; 97116-GP; 97162-GP; 99285-25

== ENCOUNTER 2022-03-15 13:02 | Observation (INO) | payer BC, OTHER ==
[2022-03-15] MEDS ORDERED: SODIUM CHLORIDE 0.9% 500 ML INFUS.BAG IV ONE ×2 (13:33→13:52)
[2022-03-15 13:59] LABS: BASO % 0.6 % (0-2.0); EOS % 0.6 % (0-4.5); HEMATOCRIT 37.9 % (32.4-45.2); HEMOGLOBIN 12.6 GM/dL (10.7-15.3); LYMPH % 13.9 % (8-40); MCH 30.2 pg (25.7-33.7); MCHC 33.2 g/dl (32.0-36.0); MEAN CELL VOLUME 90.9 fl (80-96); MEAN PLT VOLUME 8.5 fl (7.5-11.1); MONO % 7.9 % (3.8-10.2); PLATELET COUNT 221 10^3/uL (134-434); RBC 4.17 M/mm3 (3.60-5.2); RDW 13.8 % (11.6-15.6)
[2022-03-15 14:03] LABS: INR 1.04 (0.83-1.09)
[2022-03-15 14:06] LABS: ACTIVATED PTT 32.1 SECONDS (25.2-36.5)
[2022-03-15 14:18] LABS: ALBUMIN 3.3 g/dl (3.4-5.0); CALCIUM 9.4 mg/dL (8.5-10.1)
[2022-03-15 14:19] LABS: BLOOD UREA NITROGEN 17.4 mg/dL (7-18); MAGNESIUM 2.3 mg/dL (1.8-2.4)
[2022-03-15 14:22] LABS: CREATININE 0.8 mg/dL (0.55-1.3)
[2022-03-15 14:23] LABS: TOT PROT 7.5 g/dl (6.4-8.2)
[2022-03-15 14:41] LABS: PH,URINE 7.5 (5.0-8.0); URINE APPEARANCE CLEAR; URINE BILIRUBIN NEGATIVE (NEGATIVE); URINE COLOR YELLOW; URINE GLUCOSE (UA) NEGATIVE (NEGATIVE); URINE KETONE NEGATIVE (NEGATIVE); URINE LEUK ESTERASE NEGATIVE (NEGATIVE); URINE NITRITE NEGATIVE (NEGATIVE); URINE PROTEIN NEGATIVE (NEGATIVE); URINE UROBILINOGEN 0.2 mg/dL (0.2-1.0)
[2022-03-15 14:50] LABS: BILIRUBIN,TOTAL 0.4 mg/dL (0.2-1)
[2022-03-15] MEDS ORDERED: METOPROLOL TARTRATE 5 MG/5 ML VIAL IVPUSH ONE (17:41)
[2022-03-15] MEDS ORDERED: METOPROLOL TARTRATE 5 MG/5 ML VIAL ONE (17:46)
[2022-03-15] MEDS ORDERED: METOPROLOL TARTRATE 50 MG TABLET (FP) PO SCH (22:00)
[2022-03-15] MEDS ORDERED: METOPROLOL TARTRATE 5 MG/5 ML VIAL IVPUSH PRN (22:08)
[2022-03-15] MEDS: METOPROLOL TARTRATE 25 MG TABLET (FP) PO SCH (22:51)
[2022-03-15] MEDS: INSULIN SLIDING SCALE (NOVOLOG) 1 VIAL SQ SCH (22:51)
[2022-03-15] MEDS: DABIGATRAN ETEXILATE MESYLATE 75 MG CAPSULE PO SCH (22:51)
[2022-03-15 23:25] VITALS: BMI 23.7
[2022-03-16] MEDS: INSULIN SLIDING SCALE (NOVOLOG) 1 VIAL SQ SCH ×4 (06:13→22:02)
[2022-03-16 08:41] LABS: BASO % 0.9 % (0-2.0); HEMATOCRIT 37.9 % (32.4-45.2); HEMOGLOBIN 12.5 GM/dL (10.7-15.3); MCH 29.8 pg (25.7-33.7); MEAN CELL VOLUME 90.2 fl (80-96); MEAN PLT VOLUME 8.5 fl (7.5-11.1); MONO % 10.2 % (3.8-10.2); NEUT % 56.9 % (42.8-82.8); PLATELET COUNT 247 10^3/uL (134-434); RDW 13.7 % (11.6-15.6); WHITE BLOOD COUNT 6.5 K/mm3 (4.0-10.0)
[2022-03-16 09:30] LABS: CALCIUM 8.9 mg/dL (8.5-10.1)
[2022-03-16 09:31] LABS: BLOOD UREA NITROGEN 12.7 mg/dL (7-18); MAGNESIUM 2.1 mg/dL (1.8-2.4)
[2022-03-16 09:34] LABS: CREATININE 0.6 mg/dL (0.55-1.3)
[2022-03-16 09:35] LABS: BILIRUBIN,TOTAL 0.6 mg/dL (0.2-1); TOT PROT 6.9 g/dl (6.4-8.2)
[2022-03-16] MEDS: amLODIPine BESYLATE 5 MG TABLET (FP) PO SCH (09:47)
[2022-03-16] MEDS: DABIGATRAN ETEXILATE MESYLATE 75 MG CAPSULE PO SCH ×2 (09:47→22:00)
[2022-03-16] MEDS: METOPROLOL TARTRATE 25 MG TABLET (FP) PO SCH ×2 (09:48→22:00)
[2022-03-17] MEDS: INSULIN SLIDING SCALE (NOVOLOG) 1 VIAL SQ SCH ×2 (06:03→11:12)
[2022-03-17 06:57] LABS: BASO % 0.8 % (0-2.0); HEMATOCRIT 38.4 % (32.4-45.2); HEMOGLOBIN 12.4 GM/dL (10.7-15.3); LYMPH % 38.4 % (8-40); MCH 29.6 pg (25.7-33.7); MCHC 32.3 g/dl (32.0-36.0); MEAN CELL VOLUME 91.9 fl (80-96); MEAN PLT VOLUME 8.6 fl (7.5-11.1); MONO % 10.6 % (3.8-10.2); NEUT % 47.2 % (42.8-82.8); PLATELET COUNT 233 10^3/uL (134-434); RBC 4.18 M/mm3 (3.60-5.2); RDW 13.6 % (11.6-15.6); WHITE BLOOD COUNT 6.3 K/mm3 (4.0-10.0)
[2022-03-17 07:38] LABS: ALBUMIN 2.9 g/dl (3.4-5.0); BLOOD UREA NITROGEN 17.5 mg/dL (7-18); CALCIUM 8.9 mg/dL (8.5-10.1)
[2022-03-17 07:40] LABS: CREATININE 0.7 mg/dL (0.55-1.3)
[2022-03-17 07:42] LABS: BILIRUBIN,TOTAL 0.4 mg/dL (0.2-1); TOT PROT 6.7 g/dl (6.4-8.2)
[2022-03-17] MEDS: amLODIPine BESYLATE 5 MG TABLET (FP) PO SCH (09:32)
[2022-03-17] MEDS: METOPROLOL TARTRATE 25 MG TABLET (FP) PO SCH (09:32)
[2022-03-17] MEDS: DABIGATRAN ETEXILATE MESYLATE 75 MG CAPSULE PO SCH (09:33)
[2022-03-17] MEDS ORDERED: METOPROLOL TARTRATE 25 MG TABLET (FP) PO SCH ×2 (09:42→10:00)
[2022-03-17] MEDS ORDERED: METOPROLOL TARTRATE 25 MG TABLET (FP) PO ONE (09:56)
[2022-03-17 10:02] VITALS: BP 124/64; PULSE 106; TEMP 97.8
[2022-03-17] MEDS ORDERED: ATORVASTATIN CA 20 MG TABLET (FP) PO SCH (22:00)
[2022-03-18] MEDS ORDERED: METOPROLOL TARTRATE 25 MG TABLET (FP) PO SCH (10:00)
== END 2022-03-17 14:54 | disposition home or self-care (01) ==
LOC: JER 13:02 → UNDOADMOB 17:45 → OBSVTOIN 17:45 → INTOOBSV 17:45 → JERBED 17:45 → J4W 20:47
PROVIDERS: ADMIT Internal Medicine; ATTEND Nurse Practitioner Family
PROC: 3E033GC Introduction of Other Therapeutic Substance into Peripheral Vein, Percutaneous Approach (ICD-10-PCS; principal; 2022-03-16)
PROC: 3E0337Z Introduction of Electrolytic and Water Balance Substance into Peripheral Vein, Percutaneous Approach (ICD-10-PCS; 2022-03-16)
DX: I48.0 Paroxysmal atrial fibrillation (principal); I69.851 Hemiplegia and hemiparesis following other cerebrovascular disease affecting right dominant side; Z91.14 Patient's other noncompliance with medication regimen; R42 Dizziness and giddiness; I10 Essential (primary) hypertension; E11.9 Type 2 diabetes mellitus without complications; Z29.8 Encounter for other specified prophylactic measures
CPT/HCPCS: 36415; 70450-TC; 71045-TC-FY; 80053; 80061; 81003; 82962; 83036; 83735; 84443; 84484; 85025; 85610; 85730; 93005; 93010; 93306-TC; 93880-TC; 96374; 97116-GP; 97161-GP; 99285-25; C9803-CS; G0378; U0003; U0005

== ENCOUNTER 2025-01-22 15:19 | Inpatient (IN) | payer OTHER ==
[2025-01-22 16:17] LABS: ABSOLUTE IMMATURE GRANULOCYTES 0.01 x10^3/uL (0.0-0.031); BASOPHILS # 0.05 x10^3/uL (0.01-0.08); EOSINOPHIL % 0.9 % (0.7-5.8); EOSINOPHILS # 0.07 x10^3/uL (0.04-0.36); HEMATOCRIT 43.2 % (34.1-44.9); HEMOGLOBIN 13.5 g/dL (11.2-15.7); MCHC 31.3 g/dl (32.2-35.5); MEAN CELL VOLUME 92.7 fl (79.4-94.8); MEAN PLT VOLUME 11.3 fl (9.4-12.3); MONOCYTE # 0.87 x10^3/uL (0.24-0.86); MONOCYTE % 10.8 % (4.7-12.5); PLATELET COUNT # 254 x10^3/uL (182-369); RDW 13.8 % (12.5-17.0)
[2025-01-22 16:25] LABS: INR 1.26 (0.83-1.09); PROTHROMBIN TIME (PATIENT) 13.7 SEC (9.7-13.0)
[2025-01-22 16:47] LABS: MAGNESIUM 1.9 mg/dL (1.8-2.4)
[2025-01-22] MEDS ORDERED: FUROSEMIDE 40 MG/4 ML INJECTABLE VIAL ONE ×2 (16:55→18:32)
[2025-01-22 16:56] LABS: ALBUMIN 3.7 g/dl (3.4-5.0); BLOOD UREA NITROGEN 14.7 mg/dL (7-18); CALCIUM 9.1 mg/dL (8.5-10.1); CREATININE 0.7 mg/dL (0.55-1.3); POTASSIUM 4.1 mmol/L (3.5-5.1)
[2025-01-22 16:57] LABS: BILIRUBIN,TOTAL 0.6 mg/dL (0.2-1); TOT PROT 7.8 g/dl (6.4-8.2)
[2025-01-22] MEDS: FUROSEMIDE 40 MG/4 ML INJECTABLE VIAL IVPUSH SCH (17:20)
[2025-01-22] MEDS: FUROSEMIDE 40 MG/4 ML INJECTABLE VIAL IVPUSH ONE (18:40)
[2025-01-22] MEDS ORDERED: INSULIN ASPART SLIDING SCALE (NOVOLOG) 1 VIAL SQ SCH (19:45)
[2025-01-22] MEDS ORDERED: amLODIPine BESYLATE 10 MG TABLET (FP) ONE ×2 (19:55→21:52)
[2025-01-22] MEDS ORDERED: ATORVASTATIN CA 40 MG TABLET (FP) ONE (21:52)
[2025-01-22] MEDS ORDERED: DABIGATRAN ETEXILATE MESYLATE 75 MG CAPSULE PO SCH (22:00)
[2025-01-22] MEDS: DABIGATRAN ETEXILATE MESYLATE 75 MG CAPSULE PO SCH (22:25)
[2025-01-22] MEDS: amLODIPine BESYLATE 10 MG TABLET (FP) PO SCH (22:25)
[2025-01-22] MEDS: ATORVASTATIN CA 40 MG TABLET (FP) PO ONE (22:25)
[2025-01-23 00:30] VITALS: BMI 25.1
[2025-01-23] MEDS: ACETAMINOPHEN 325 MG TABLET (FP) PO PRN (01:28)
[2025-01-23] MEDS: INSULIN ASPART SLIDING SCALE (NOVOLOG) 1 VIAL SQ SCH (06:20)
[2025-01-23 07:30] LABS: ABSOLUTE IMMATURE GRANULOCYTES 0.02 x10^3/uL (0.0-0.031); BASOPHILS # 0.07 x10^3/uL (0.01-0.08); EOSINOPHIL % 0.8 % (0.7-5.8); EOSINOPHILS # 0.06 x10^3/uL (0.04-0.36); HEMOGLOBIN 13.2 g/dL (11.2-15.7); MCHC 30.7 g/dl (32.2-35.5); MEAN CELL VOLUME 93.1 fl (79.4-94.8); MEAN PLT VOLUME 10.8 fl (9.4-12.3); PLATELET COUNT # 199 x10^3/uL (182-369); RDW 13.2 % (12.5-17.0)
[2025-01-23 07:40] LABS: INR 1.36 (0.83-1.09); PROTHROMBIN TIME (PATIENT) 14.8 SEC (9.7-13.0)
[2025-01-23 07:42] LABS: POTASSIUM 3.8 mmol/L (3.5-5.1)
[2025-01-23 07:54] LABS: BLOOD UREA NITROGEN 14.3 mg/dL (7-18); CALCIUM 8.9 mg/dL (8.5-10.1)
[2025-01-23 07:55] LABS: ALBUMIN 3.3 g/dl (3.4-5.0); MAGNESIUM 1.9 mg/dL (1.8-2.4)
[2025-01-23 07:56] LABS: BILIRUBIN,TOTAL 0.8 mg/dL (0.2-1); TOT PROT 6.8 g/dl (6.4-8.2)
[2025-01-23 07:58] LABS: CREATININE 0.8 mg/dL (0.55-1.3)
[2025-01-23] MEDS: ASPIRIN COATED 81 MG TABLET.EC PO SCH (09:23)
[2025-01-23] MEDS: FUROSEMIDE 40 MG/4 ML INJECTABLE VIAL IVPUSH SCH (09:23)
[2025-01-23] MEDS: MELATONIN 5 MG TABLETS PO ONE (21:37)
[2025-01-24 07:28] LABS: POTASSIUM 3.6 mmol/L (3.5-5.1)
[2025-01-24 07:38] LABS: ALBUMIN 3.2 g/dl (3.4-5.0)
[2025-01-24 07:39] LABS: BLOOD UREA NITROGEN 20.6 mg/dL (7-18)
[2025-01-24 07:40] LABS: CALCIUM 8.8 mg/dL (8.5-10.1); MAGNESIUM 1.9 mg/dL (1.8-2.4)
[2025-01-24 07:43] LABS: TOT PROT 6.5 g/dl (6.4-8.2)
[2025-01-24 07:44] LABS: CREATININE 0.8 mg/dL (0.55-1.3)
[2025-01-24 07:46] LABS: BILIRUBIN,TOTAL 0.6 mg/dL (0.2-1)
[2025-01-24 07:47] LABS: CHOLESTEROL 110 mg/dL (50-200)
[2025-01-24 07:48] LABS: ABSOLUTE IMMATURE GRANULOCYTES 0.01 x10^3/uL (0.0-0.031); BASOPHILS # 0.05 x10^3/uL (0.01-0.08); EOSINOPHIL % 1.3 % (0.7-5.8); EOSINOPHILS # 0.09 x10^3/uL (0.04-0.36); HEMATOCRIT 40.7 % (34.1-44.9); HEMOGLOBIN 12.8 g/dL (11.2-15.7); LDL CHOLESTEROL (ONLY SJRH) 43 mg/dL (5-100); MCHC 31.4 g/dl (32.2-35.5); MEAN CELL VOLUME 92.5 fl (79.4-94.8); MONOCYTE # 0.75 x10^3/uL (0.24-0.86); MONOCYTE % 10.5 % (4.7-12.5); PLATELET COUNT # 200 x10^3/uL (182-369); RDW 13.3 % (12.5-17.0)
[2025-01-24 07:50] LABS: HDL CHOLESTEROL 64 mg/dL (40-60)
[2025-01-24] MEDS: LOSARTAN POTASSIUM 50 MG TABLET PO SCH (10:40)
[2025-01-24] MEDS: MAGNESIUM SULF 50% (8.12 MEQ/2 ML-1 GM VIAL) IVPB ONE (12:40)
[2025-01-24] MEDS: POTASSIUM CHLORIDE ORAL LIQUID 20 MEQ/15 ML PO ONE (13:15)
[2025-01-24] MEDS: EMPAGLIFLOZIN (JARDIANCE) 10 MG TABLET PO SCH (14:08)
[2025-01-24] MEDS ORDERED: ACETAMINOPHEN 325 MG TABLET (FP) PO PRN (15:10)
[2025-01-24] MEDS ORDERED: LOSARTAN POTASSIUM 50 MG TABLET PO SCH (15:12)
[2025-01-24] MEDS: ATORVASTATIN CA 20 MG TABLET (FP) PO SCH (21:06)
[2025-01-25] MEDS: EMPAGLIFLOZIN (JARDIANCE) 10 MG TABLET PO SCH (06:39)
[2025-01-25 06:56] LABS: HEMATOCRIT 42.5 % (34.1-44.9); HEMOGLOBIN 12.9 g/dL (11.2-15.7); MCHC 30.4 g/dl (32.2-35.5); MEAN CELL VOLUME 92.6 fl (79.4-94.8); MEAN PLT VOLUME 10.9 fl (9.4-12.3); PLATELET COUNT # 212 x10^3/uL (182-369); RDW 13.5 % (12.5-17.0)
[2025-01-25 07:26] LABS: POTASSIUM 4.5 mmol/L (3.5-5.1)
[2025-01-25 07:31] LABS: BLOOD UREA NITROGEN 18.5 mg/dL (7-18); CALCIUM 9.2 mg/dL (8.5-10.1); MAGNESIUM 2.1 mg/dL (1.8-2.4)
[2025-01-25 07:35] LABS: CREATININE 0.8 mg/dL (0.55-1.3); PHOSPHOROUS 3.8 mg/dL (2.5-4.9)
[2025-01-25] MEDS: LOSARTAN POTASSIUM 25 MG TABLET PO SCH (10:46)
[2025-01-25] MEDS: DABIGATRAN ETEXILATE MESYLATE 150 MG CAPSULE PO SCH (10:58)
[2025-01-25 14:06] VITALS: BP 116/65; PULSE 58; RESP 18; TEMP 97.2
== END 2025-01-25 16:30 | disposition home or self-care (01) | DRG 291 ==
LOC: JER 15:19 → JERBED 19:23 → J4W 23:58
PROVIDERS: ADMIT Hospitalist; ATTEND Internal Medicine
DX: I11.0 Hypertensive heart disease with heart failure (principal); I50.33 Acute on chronic diastolic (congestive) heart failure; E78.5 Hyperlipidemia, unspecified; E11.9 Type 2 diabetes mellitus without complications; I48.91 Unspecified atrial fibrillation
CPT/HCPCS: 36415; 71045-TC-FY; 80048; 80053; 80061; 82550; 82553; 82962; 83036; 83735; 83880; 84100; 84443; 84484; 85025; 85027; 85610; 85730; 93005; 93010; 93306-TC; 93970-TC; 97116-GP; 97161-GP; 99285-25